=== PATIENT | female | born 1940 | race Caucasian/White ===

== ENCOUNTER 2016-12-02 22:04 | Inpatient (IN) | payer MEDICARE, MEDICAID ==
[~2016-12-02] VITALS: Ht 157.5 cm; Wt 82.0 kg
[~2016-12-02 22:04] MED LIST: ACET325T38 PO; AMIT25TA9 PO; ASPI-999 PO; BRIM5DRO12 OP; CARV3.122 PO; CEFD300C3 PO; CHOL10003 PO; CYAN500T2 PO; DCS100C PO; DULO30CA3 PO; FLDR.1T PO; FURO20TA4 PO; GLIP10TA13 PO; GLYB2.5T2 PO; HYDR-34 PO; HYDR-3714 PO; HYDR-3812 PO; HYDR-707 PO; HYDR10TA13 PO; HYDR20TA PO; HYDR20TA2 PO; INSU100V16 SC; LEVO25TA5 PO; LEVO750T39 PO; LEVO75TA6 PO; LVT.1T PO; MAGN-47 PO; MELO-195 PO; METF500T4 PO; METF500T8 PO; METR500T21 PO; MGS40T PO; MULT-974 PO; MULT1TAB12 PO; NCT21TD TD; OMEP-10 PO; PIOG45TA PO; POLY17PO23 PO; POTA10CA43 PO; SENN1TAB76 PO; TRAM-42 PO; TRAM50TA2 PO; TRAV0.004S OU; Vitamin B12 SL; ZINC113C8 TP
[2016-12-02 23:57] LABS: BILIRUBIN,URINE NEGATIVE (NEGATIVE); KETONES,URINE 1+ (NEGATIVE); LEUKOCYTE ESTERASE ,URINE 1+ (NEGATIVE); NITRITE,URINE NEGATIVE (NEGATIVE); PH,URINE 8 (5-9); PROTEIN,URINE 2+ (NEGATIVE); UROBILINOGEN,URINE NORMAL (NORMAL)
[2016-12-02] MEDS ORDERED: fentaNYL INJECTION 100 MCG/2 ML AMP IVP STA (23:59)
[2016-12-03] VITALS (16 sets, daily range): BP systolic 67–116; BP diastolic 37–71
[2016-12-03] LABS: SQUAMOUS EPITHELIAL CELL,UR RARE /HPF; WBC,URINE RARE /HPF
[2016-12-03 00:13] LABS: BASOPHILS % (AUTO) 0 % (0-10); EOSINOPHILS % (AUTO) 0 % (0-10); LYMPHOCYTES % (AUTO) 31 % (12-44); MEAN CORPUSCULAR HEMOGLOBIN 30 PG (25-34); MEAN CORPUSCULAR HGB CONC 34 G/DL (32-36); MEAN CORPUSCULAR VOLUME 87 FL (80-99); MEAN PLATELET VOLUME 11.3 FL (7.4-10.4); MONOCYTES # (AUTO) 0.6 X 10^3 (0.0-1.0); MONOCYTES % (AUTO) 7 % (0-12); NEUTROPHILS % (AUTO) 62 % (42-75); PLATELET COUNT 189 10^3/uL (130-400); RED BLOOD COUNT 5.19 10^6/uL (4.35-5.85); RED CELL DISTRIBUTION WIDTH 14.8 % (10.0-14.5); WHITE BLOOD COUNT 9.8 10^3/uL (4.3-11.0)
--- NOTE | 2016-12-03 00:16 | ED Fall/Injury ---
General Chief Complaint: Hip/Pelvic Problems Stated Complaint: FALL Nursing Triage Note: PT FELL AT [facility]. DENIES LOC. DENIES NECK PAIN. CCOLLAR IN PLACE PER EMS. HEMATOMA TO POSTERIOR HEAD. PT C/O LEFT HIP PAIN. Source: patient Exam Limitations: other ([place]) History of Present Illness Initial Comments 76 yo female patient presents to the ED with c/o falling at [facility]. Denies LOC, neck pain, chest pain, SOA. Does c/o left hip pain and hematoma of the posterior scalp. Location Injury Occurred: [facility] Occurred: just prior to arrival Injuries/Pain Location: head, back Context: lost balance Loss of Consciousness: no loss of consciousness Modifying Factors: Improves With Immobilization, Worse With Movement Allergies and Home Medications Allergies Coded Allergies: Penicillins (Unverified Allergy, Mild, 08/03/08) Home Medications Aspirin 81 Mg Tab.chew, 81 MG PO DAILY, (Reported) Docusate Sodium 100 Mg Capsule, 100 MG PO BID for 30 Days Prescribed by: CHIDI MALLORY on 12/05/16 1042 Duloxetine HCl 30 Mg Capsule.dr, 30 MG PO DAILY, (Reported) Fludrocortisone Acetate 0.1 Mg Tab, 0.1 MG PO DAILY, (Reported) Glipizide 5 Mg Tablet, 2.5 MG PO DAILY, (Reported) TAKES 1/2 OF A (5 MG) TABLET Hydrocodone/Acetaminophen 1 Each Tablet, 1 TAB PO Q6H PRN for PAIN, #30 Prescribed by: CHIDI MALLORY on 12/05/16 1042 Hydrocortisone 20 Mg Tablet, 20 MG PO DAILY, (Reported) Hydrocortisone 20 Mg Tablet, 10 MG PO DAILY@1500, (Reported) TAKES 1/2 OF A (20 MG) TABLET Mag Hydrox/Al Hydrox/Simeth 30 Ml Oral.susp, 30 ML PO TIDAC@0730,1100,1600, ( Reported) Metformin HCl 500 Mg Tab.er.24h, 1,000 MG PO BID, (Reported) TAKES 2 (500 MG) TABLETS Nystatin 60 Gm Powder, TP BID, (Reported) APPLIED TO ABDOMINAL FOLDS AND THIGH Zinc Oxide 113 Gm Cream..g., TP BID PRN for RASH, (Reported) Constitutional: No diaphoresis, No dizziness, No fever, No malaise Eyes: No Symptoms Reported Ears, Nose, Mouth, Throat: no symptoms reported Respiratory: no symptoms reported Cardiovascular: no symptoms reported Gastrointestinal: No abdominal pain, No nausea, No vomiting Genitourinary: no symptoms reported Musculoskeletal: No back pain, joint pain (left hip), No neck pain Skin: change in color (ecchymosis and swelling posterior scalp) Psychiatric/Neurological: Denies Headache, Denies Numbness, Denies Paresthesia , Pre-Existing 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), Denies Seizure, Denies Tingling, Denies Weakness All Other Systems Reviewed Negative Unless Noted: Yes (Negative excepted noted.) Past Egaijok-Uhhodt-Jvhlcv Hx Patient Social History Alcohol Use: Denies Use Recreational Drug Use: No Smoking Status: Unknown if Ever Smoked Recent Foreign Travel: No Contact w/Someone Who Travel: No Recent Infectious Disease Expo: No Recent Hopitalizations: Yes Immunizations Up To Date Tetanus Booster (TDap): Unknown Date of Pneumonia Vaccine: Jun 01, 2013 Date of Influenza Vaccine: Jul 08, 2016 Surgeries HX Surgeries: Yes (pituitary tumor removed, gastric surgery-pt unsure of name) Surgeries: Abdominal, Breast, Gallbladder, Orthopedic, Tracheostomy Respiratory Hx Respiratory Disorders: Yes (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) Cardiovascular Hx Cardiac Disorders: Yes Cardiac Disorders: High Cholesterol, Hypertension Neurological Hx Neurological Disorders: No Reproductive System Hx Reproductive Disorders: No HIV/AIDS: No Female Reproductive Disorders: Denies Genitourinary Hx Genitourinary Disorders: Yes Genitourinary Disorders: Bladder Infection, Renal Failure Gastrointestinal Hx Gastrointestinal Disorders: Yes (DYSPHAGIA) Gastrointestinal Disorders: Gastroesophageal Reflux, Gastrointestinal Bleed, Ulcer, Gall Bladder Disease Musculoskeletal Hx Musculoskeletal Disorders: Yes Musculoskeletal Disorders: Chronic Back Pain, Fractures Endocrine Hx Endocrine Disorders: Yes (ADRENOCORTICAL INSUFFICIENCY. ) Endocrine Disorders: Adrenal Disease, Hypothyroidsim, Pituitary Disease, Diabetes, Non-Insulin dep HEENT HX ENT Disorders: Yes (DYSPHAGIA) HEENT Disorders: Cataract, Glaucoma Loss of Vision: Left Hearing Impairment: Hard of Hearing Cancer Hx Cancer: Yes (right masectomy) Cancer: Breast Psychosocial Hx Psychiatric Problems: Yes Behavioral Health Disorders: Anxiety, Depression Integumentary HX Skin/Integumentary Disorder: No Blood Transfusions Hx Blood Disorders: No Adverse Reaction to a Blood Tr: No Reviewed Nursing Assessment Reviewed/Agree w Nursing PMH: Yes Family Medical History Significant Family History: No Pertinent Family Hx Family Medial History: Physical Exam Vital Signs Vital Sign - Last 12Hours 12/02/16 12/03/16 23:07 00:25 Temp 97.0 Pulse 82 Resp 17 B/P (MAP) 150/99 O2 Delivery Nasal Cannula O2 Flow Rate 2.00 Capillary Refill : Less Than 3 Seconds General Appearance: no apparent distress, other (chronically ill appearing female. ) HEENT: PERRL/EOMI (rt eye PERRL/EOM. 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 ), other ( hematoma posterior scalp.) Neck: non-tender, supple, normal inspection Cardiovascular: normal peripheral pulses, regular rate, rhythm, no edema, systolic murmur Respiratory: chest non-tender, lungs clear, normal breath sounds, no respiratory distress Gastrointestinal: normal bowel sounds, non tender, soft, No distended Back: normal inspection, vertebral tenderness Extremities: normal capillary refill, pelvis stable, other (left hip tenderness ) Neurologic/Psychiatric: manager grocery II-XII nml as tested, no motor/sensory deficits, alert, normal mood/affect, oriented x 3 Skin: normal color, warm/dry Lin Coma Score Best Eye Response: (4) Open Spontaneously Best Verbal Response: (5) Oriented Best Motor Response: (6) Obeys Commands Lin Total: 15 Progress/Results/Core Measures Results/Orders Lab Results Laboratory Tests Test 12/02/16 22:20 12/02/16 23:40 12/03/16 00:27 Range/Units White Blood Count 9.8 4.3-11.0 10^3/uL Red Blood Count 5.19 4.35-5.85 10^6/uL Hemoglobin 15.3 11.5-16.0 G/DL Hematocrit 45 35-52 % Mean Corpuscular Volume 87 80-99 FL Mean Corpuscular Hemoglobin 30 25-34 PG Mean Corpuscular Hemoglobin Concent 34 32-36 G/DL Red Cell Distribution Width 14.8 H 10.0-14.5 % Platelet Count 189 130-400 10^3/uL Mean Platelet Volume 11.3 H 7.4-10.4 FL Neutrophils (%) (Auto) 62 42-75 % Lymphocytes (%) (Auto) 31 12-44 % Monocytes (%) (Auto) 7 0-12 % Eosinophils (%) (Auto) 0 0-10 % Basophils (%) (Auto) 0 0-10 % Neutrophils # (Auto) 6.0 1.8-7.8 X 10^3 Lymphocytes # (Auto) 3.0 1.0-4.0 X 10^3 Monocytes # (Auto) 0.6 0.0-1.0 X 10^3 Eosinophils # (Auto) 0.0 0.0-0.3 10^3/uL Basophils # (Auto) 0.0 0.0-0.1 10^3/uL Prothrombin Time 12.4 12.2-14.7 SEC INR Comment 1.0 0.8-1.4 Activated Partial Thromboplast Time 34 24-35 SEC D-Dimer 3.47 H 0.00-0.49 UG/ML Sodium Level 141 135-145 MMOL/L Potassium Level 3.3 L 3.6-5.0 MMOL/L Chloride Level 102 98-107 MMOL/L Carbon Dioxide Level 30 21-32 MMOL/L Anion Gap 9 5-14 MMOL/L Blood Urea Nitrogen 11 7-18 MG/DL Creatinine 0.87 0.60-1.30 MG/DL Estimat Glomerular Filtration Rate > 60 BUN/Creatinine Ratio 13 Glucose Level 170 H 70-105 MG/DL Calcium Level 8.4 L 8.5-10.1 MG/DL Magnesium Level 2.5 H 1.8-2.4 MG/DL Total Bilirubin 0.6 0.1-1.0 MG/DL Aspartate Amino Transf (AST/SGOT) 30 5-34 U/L Alanine Aminotransferase (ALT/SGPT) 33 0-55 U/L Alkaline Phosphatase 124 40-136 U/L Total Creatine Kinase 30 29-168 U/L Creatine Kinase MB 1.7 <6.6 NG/ML Troponin I < 0.30 <0.30 NG/ML Total Protein 6.0 L 6.4-8.2 G/DL Albumin 3.6 3.2-4.5 G/DL Urine Color YELLOW Urine Clarity CLEAR Urine pH 8 5-9 Urine Specific [place] 1.020 1.016-1.022 Urine Protein 2+ H NEGATIVE Urine Glucose (UA) 1+ H NEGATIVE Urine Ketones 1+ H NEGATIVE Urine Nitrite NEGATIVE NEGATIVE Urine Bilirubin NEGATIVE NEGATIVE Urine Urobilinogen NORMAL NORMAL MG/DL Urine Leukocyte Esterase 1+ H NEGATIVE Urine RBC (Auto) 1+ H NEGATIVE Urine RBC RARE /HPF Urine WBC RARE /HPF Urine Squamous Epithelial Cells RARE /HPF Urine Crystals PRESENT H /LPF Urine Amorphous Sediment RARE MAMI PHOSPHATE H /LPF Urine Bacteria TRACE /HPF Urine Casts PRESENT /LPF Urine Hyaline Casts 2-5 H /LPF Urine Mucus MODERATE H /LPF Urine Culture Indicated YES Glucometer 155 H 70-110 MG/DL Micro Results Microbiology 12/02/16 Urine Culture - Final, Complete Proteus Mirabilis Escherichia Coli My Orders Orders - GENEVIEVE MATIAS PA Ct Head/Cervical Spine Wo (12/02/16 22:30) Hip, Left, 2 Views (12/02/16 22:30) Pelvis (12/02/16 22:30) Chest 1 View, Ap/Pa Only (12/02/16 23:06) Ua Culture If Indicated (12/02/16 23:53) Garibay Cath Insertion (12/02/16 23:53) Fentanyl Injection (Sublimaze Injection (12/02/16 23:59) Urine Culture (12/02/16 23:40) Cbc With Automated Diff (12/03/16 00:08) Comprehensive Metabolic Panel (12/03/16 00:08) Protime With Inr (12/03/16 00:08) Partial Thromboplastin Time (12/03/16 00:08) Saline Lock/Iv-Start (12/03/16 00:08) Ns Iv 1000 Ml (Sodium Chloride 0.9%) (12/03/16 00:30) Ekg Tracing (12/03/16 00:30) O2 (12/03/16 00:30) Monitor-Rhythm Ecg Trace Only (12/03/16 00:30) Creatine Kinase (12/03/16 00:30) Creatine Kinase Mb (12/03/16 00:30) Fibrin Degradation Products (12/03/16 00:30) Magnesium (12/03/16 00:30) Troponin I (12/03/16 00:30) Ns Iv 1000 Ml (Sodium Chloride 0.9%) (12/03/16 00:28) Ns Iv 1000 Ml (Sodium Chloride 0.9%) (12/03/16 01:14) Ct Chest/Abdomen/Pelvis W (12/03/16 01:19) Iohexol Injection (Omnipaque 350 Mg/Ml 1 (12/03/16 02:00) Ns (Ivpb) (Sodium Chloride 0.9% Ivpb Bag (12/03/16 02:00) Medications Given in ED Vital Signs/I&O Vital Sign - Last 12Hours 12/02/16 12/03/16 23:07 00:25 Temp 97.0 Pulse 82 Resp 17 B/P (MAP) 150/99 O2 Delivery Nasal Cannula O2 Flow Rate 2.00 Blood Pressure Mean: 116 Diagnostic Imaging Diagonstic Imaging: CT Plain Films/CT/US/NM/MRI: c-spine, head Comments CT head findings showed no acute hemorrhage or mass effect. Diffuse atrophy and chronic small vessel ischemic changes. Mottled lucency in the skull base which may reflect severe osteopenia. Appearance is unchanged from previous exam. CT spine shows T3 compression fracture with 50 percent loss of height centrally which is new when compared to the previous study. Diffuse osteopenia. Small left pleural effusion the visualized upper lung. Reviewed: Other ([employer] report reviewed) Diagonstic Imaging: Xray Plain Films/CT/US/NM/MRI: pelvis Comments No acute bony abnormality of the pelvis. Left hip shows an intertrochanteric fracture. Reviewed: Reviewed/Discussed (reviewed with Dr. Cooley) Diagonstic Imaging: Xray Plain Films/CT/US/NM/MRI: hip Comments Left intertrochanteric fracture Reviewed: Reviewed/Discussed (with Dr. Cooley) Diagonstic Imaging: Xray Plain Films/CT/US/NM/MRI: chest Comments No acute cardiopulmonary abnormality noted. Diagonstic Imaging: CT Plain Films/CT/US/NM/MRI: chest, abdomen, pelvis Comments CT chest shows a calcified ectatic thoracic aorta. No CT evidence of aortic injury. Small bilateral pleural effusions with bibasilar atelectasis. T3, T6, T7 compression fractures. Diffuse osteopenia. CT abdomen pelvis shows no acute CT evidence of solid organ injury. Mild intrahepatic ductal dilatation and common bile duct dilatation likely related to age and prior cholecystectomy. Finding in the posterior medial spleen probably benign. No pre-swelling fluid. Findings of the central uterus nonspecific. Probable left adnexal cyst with recommendations for follow-up pelvic ultrasound. Lizzette large ventral hernia containing fat small and large bowel loops. Reviewed: Other ([employer] report reviewed) Departure Communication Time/Spoke to Admitting Phy: 01:03 Communication Echo Moody accepts patient to Dr. Wagn's orthopaedic service for IV pain control , IVF, and further management. Requests consult of trauma surgery, cardiology, and medicine. Progress Notes 0011 Patient case discussed with Dr. Le. Requests Ortho to admit patient with trauma surgery consult. 0020 Dr. Kathleen staton. Will await return call. 0039 Kathleen staton to ED. Will await return call. 0103 patient case discussed with Debbie Moody APRN. She accepts patient to their orthopedic service for IV pain control, possible surgical intervention, and other evaluation. Requests consult of medicine, trauma surgery, and cardiology in the a.m. request CT scan abdomen, chest, pelvis prior to admission of stairs. Plan for admission, laboratory findings, and diagnostic study findings were discussed with the patient. I've also discussed we'll proceed with CT chest/pelvis/abdomen prior to transferring upstairs. Patient voices understanding. Patient was noted to have a drop in her blood pressure after being given fentanyl. Patient was given 2 L normal saline with good response. CT scan findings were discussed with the patient. Proceed with admission. Patient case as well as plan for admission discussed with Dr. Cooley, he agrees with the plan of care. Impression Impression: Primary Impression: Closed left hip fracture Qualified Codes: S72.002A - Fracture of unspecified part of neck of left femur , initial encounter for closed fracture Additional Impressions: Thoracic compression fracture Qualified Codes: S22.000A - Wedge compression fracture of unspecified thoracic vertebra, initial encounter for closed fracture Volume depletion Fall at home Qualified Codes: W19.XXXA - Unspecified fall, initial encounter; Y92.099 - Unspecified place in other non-institutional residence as the place of occurrence of the external cause Hypotension Qualified Codes: I95.9 - Hypotension, unspecified Disposition: ADMITTED INPATIENT Condition: Stable Decision to Admit Reason: Admit from ER (General) Decision to Admit/Date: Dec 03, 2016 Time/Decision to Admit Time: 01:03 Departure-Patient Inst. Referrals: CHIOMA CORREIA DO (PCP/Family) Primary Care Physician Scripts Docusate Sodium (Colace) 100 Mg Capsule 100 MG PO BID for 30 Days, CAP Prov: CHIDI MALLORY DO 12/05/16 Hydrocodone/Acetaminophen (Hydrocodon -Acetaminophen 5-325) 1 Each Tablet 1 TAB PO Q6H Y for PAIN, #30 Prov: CHIDI MALLORY DO 12/05/16 GENEVIEVE MATIAS Dec 03, 2016 00:16
[2016-12-03 00:17] LABS: PROTHROMBIN TIME PATIENT 12.4 SEC (12.2-14.7)
[2016-12-03 00:27] LABS: ANION GAP 9 MMOL/L (5-14); BILIRUBIN,TOTAL 0.6 MG/DL (0.1-1.0); BLOOD UREA NITROGEN 11 MG/DL (7-18); BUN/CREATININE RATIO 13; CALCIUM 8.4 MG/DL (8.5-10.1); CARBON DIOXIDE 30 MMOL/L (21-32); CHLORIDE 102 MMOL/L (98-107); CREATININE SERUM 0.87 MG/DL (0.60-1.30); GFR ESTIMATED > 60; GLUCOSE 170 MG/DL (70-105); POTASSIUM 3.3 MMOL/L (3.6-5.0); SODIUM 141 MMOL/L (135-145)
[2016-12-03 00:28] LABS: ALANINE AMINOTRANSFERASE 33 U/L (0-55); ALBUMIN 3.6 G/DL (3.2-4.5); ASPARTATE AMINO TRANSFERASE 30 U/L (5-34)
[2016-12-03] MEDS ORDERED: NS IV 1000 ML 1,000 ML ONE ×2 (00:28→04:08)
[2016-12-03] MEDS ORDERED: NS IV 1000 ML 1,000 ML IV ONE ×2 (00:30→01:14)
[2016-12-03 00:50] LABS: CREATINE KINASE 30 U/L (29-168); MAGNESIUM 2.5 MG/DL (1.8-2.4)
[2016-12-03 00:56] LABS: TROPONIN I < 0.30 NG/ML (<0.30)
[2016-12-03] MEDS ORDERED: NS 100 ML (IVPB) BAG IV ONE (02:00)
[2016-12-03] MEDS ORDERED: IOHEXOL 350 MG/ML 100 ML (OMNIPAQUE 350) VIAL IV ONE (02:00)
[2016-12-03] MEDS ORDERED: METF500T8 PO (02:11)
[2016-12-03] MEDS ORDERED: GLIP5TAB13 PO (02:11)
[2016-12-03] MEDS ORDERED: NYST60PO TP (02:11)
[2016-12-03] MEDS ORDERED: NS W/KCL 20 MEQ/L 1,000 ML IV ONE (03:22)
[2016-12-03] MEDS ORDERED: fentaNYL INJECTION 100 MCG/2 ML AMP IV PRN (04:00)
[2016-12-03] MEDS ORDERED: ONDANSETRON 4 MG/2 ML (SDV) Z0FRAN IV PRN ×2 (04:00→18:15)
[2016-12-03 04:54] LABS: BASOPHILS % (AUTO) 0 % (0-10); EOSINOPHILS # (AUTO) 0.1 10^3/uL (0.0-0.3); EOSINOPHILS % (AUTO) 1 % (0-10); LYMPHOCYTES # (AUTO) 3.8 X 10^3 (1.0-4.0); LYMPHOCYTES % (AUTO) 23 % (12-44); MEAN CORPUSCULAR HEMOGLOBIN 30 PG (25-34); MEAN CORPUSCULAR HGB CONC 34 G/DL (32-36); MEAN CORPUSCULAR VOLUME 89 FL (80-99); MEAN PLATELET VOLUME 11.4 FL (7.4-10.4); MONOCYTES # (AUTO) 1.2 X 10^3 (0.0-1.0); MONOCYTES % (AUTO) 7 % (0-12); NEUTROPHILS # (AUTO) 11.4 X 10^3 (1.8-7.8); NEUTROPHILS % (AUTO) 69 % (42-75); PLATELET COUNT 159 10^3/uL (130-400); RED BLOOD COUNT 4.43 10^6/uL (4.35-5.85); RED CELL DISTRIBUTION WIDTH 14.7 % (10.0-14.5); WHITE BLOOD COUNT 16.6 10^3/uL (4.3-11.0)
[2016-12-03 04:59] LABS: ABG BASE EXCESS -0.6 MMOL/L (-2.5-2.5); ABG HCO3 24 MMOL/L (23-27); ABG OXYGEN SATURATION 99 % (94-100); ABG PCO2 39 MMHG (35-45); ABG PO2 101 MMHG (79-93); ABG TCO2 24.7 MMOL/L (21.0-31.0); ALLENS TEST YES-POS; PATIENT TEMP 98.6
[2016-12-03 05:16] LABS: ANISOCYTOSIS SLIGHT; BAND NEUTROPHILS 2 %; BASOPHILS % (MANUAL) 0 %; EOSINOPHILS % (MANUAL) 0 %; LYMPHOCYTES % (MANUAL) 20 %; NEUTROPHILS % (MANUAL) 64 %; POIKILOCYTOSIS SLIGHT; REACTIVE LYMPHOCYTES 9 %
[2016-12-03 05:25] LABS: ALANINE AMINOTRANSFERASE 27 U/L (0-55); ALBUMIN 3.1 G/DL (3.2-4.5); ANION GAP 10 MMOL/L (5-14); ASPARTATE AMINO TRANSFERASE 24 U/L (5-34); BILIRUBIN,TOTAL 0.9 MG/DL (0.1-1.0); BLOOD UREA NITROGEN 12 MG/DL (7-18); BUN/CREATININE RATIO 14; CALCIUM 7.7 MG/DL (8.5-10.1); CARBON DIOXIDE 24 MMOL/L (21-32); CHLORIDE 107 MMOL/L (98-107); CREATININE SERUM 0.85 MG/DL (0.60-1.30); GFR ESTIMATED > 60; GLUCOSE 164 MG/DL (70-105); MAGNESIUM 2.1 MG/DL (1.8-2.4); POTASSIUM 3.3 MMOL/L (3.6-5.0); SODIUM 141 MMOL/L (135-145)
[2016-12-03 05:32] LABS: TROPONIN I < 0.30 NG/ML (<0.30)
[2016-12-03] MEDS: NS W/KCL 20 MEQ/L 1,000 ML IV SCH ×2 (05:40→11:46)
[2016-12-03] MEDS ORDERED: NS IV 1000 ML 1,000 ML IV SCH ×4 (05:45→22:30)
[2016-12-03 05:49] LABS: PHOSPHORUS 0.8 MG/DL (2.3-4.7)
[2016-12-03] MEDS: HYDROCORTISONE 100 MG/2 ML (Solu-CORTEF) VIAL IV SCH ×2 (06:00→16:38)
--- NOTE | 2016-12-03 06:43 | Pulmonary Consultation ---
History of Present Illness History of Present Illness Date of Consultation 12/03/16 06:38 Date of Admission History of Present Illness 76yo female presented to ED s/p fall at [facility] and found to have left hip fracture. Pt did hit head no LOC she has a posterior scalp hematoma. Allergies and Home Medications Allergies Coded Allergies: Penicillins (Unverified Allergy, Mild, 08/03/08) Home Medications Aspirin 81 Mg Tab.chew, 81 MG PO DAILY, #30 Ref 5 Prescribed by: AGNES SHARP on 05/20/16 1021 Duloxetine HCl 30 Mg Capsule.dr, 30 MG PO DAILY, (Reported) Fludrocortisone Acetate 0.1 Mg Tab, 0.1 MG PO DAILY, (Reported) Glipizide 5 Mg Tablet, 2.5 MG PO DAILY, #15 (Reported) Hydrocodone/Acetaminophen 1 Each Tablet, 1 TAB PO Q6H PRN for PAIN, (Reported) Hydrocortisone 10 Mg Tablet, 10 MG PO DAILY@1500, (Reported) Hydrocortisone 20 Mg Tablet, 20 MG PO DAILY, (Reported) Metformin HCl 500 Mg Tab.er.24h, #120 (Reported) Nystatin 60 Gm Powder, #30 (Reported) Zinc Oxide 113 Gm Cream..g., TP BID PRN for RASH, (Reported) Past [place]-Uyctsc-Qtanab Hx Patient Social History Alcohol Use: Denies Use Recreational Drug Use: No Smoking Status: Unknown if Ever Smoked Recent Foreign Travel: No Contact w/Someone Who Travel: No Recent Infectious Disease Expo: No Recent Hopitalizations: Yes Physical Abuse Screen: No Sexual Abuse: No Immunizations Up To Date Tetanus Booster (TDap): Unknown Date of Pneumonia Vaccine: Jun 01, 2013 Date of Influenza Vaccine: Jul 08, 2016 Surgeries HX Surgeries: Yes (pituitary tumor removed, gastric surgery-pt unsure of name) Surgeries: Abdominal, Breast, Gallbladder, Orthopedic, Tracheostomy Respiratory Hx Respiratory Disorders: Yes (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) Cardiovascular Hx Cardiac Disorders: Yes Cardiac Disorders: High Cholesterol, Hypertension Neurological Hx Neurological Disorders: No Reproductive System Hx Reproductive Disorders: No HIV/AIDS: No Female Reproductive Disorders: Denies Genitourinary Hx Genitourinary Disorders: Yes Genitourinary Disorders: Bladder Infection, Renal Failure Gastrointestinal Hx Gastrointestinal Disorders: Yes (DYSPHAGIA) Gastrointestinal Disorders: Gastroesophageal Reflux, Gastrointestinal Bleed, Ulcer, Gall Bladder Disease Musculoskeletal Hx Musculoskeletal Disorders: Yes Musculoskeletal Disorders: Chronic Back Pain, Fractures Endocrine Hx Endocrine Disorders: Yes (ADRENOCORTICAL INSUFFICIENCY. ) Endocrine Disorders: Adrenal Disease, Hypothyroidsim, Pituitary Disease, Diabetes, Non-Insulin dep HEENT HX ENT Disorders: Yes (DYSPHAGIA) HEENT Disorders: Cataract, Glaucoma Loss of Vision: Left Hearing Impairment: Hard of Hearing Cancer Hx Cancer: Yes (right masectomy) Cancer: Breast Psychosocial Hx Psychiatric Problems: Yes Behavioral Health Disorders: Anxiety, Depression Integumentary HX Skin/Integumentary Disorder: No Blood Transfusions Hx Blood Disorders: No Adverse Reaction to a Blood Tr: No Reviewed Nursing Assessment Reviewed/Agree w Nursing PMH: Yes Family Medical History Significant Family History: No Pertinent Family Hx Family Medial History: Exam Exam Vital Signs Date Time Temp Pulse Resp B/P (MAP) Pulse Ox O2 Delivery O2 Flow Rate FiO2 12/03/16 06:00 71 12 94/60 95 Nasal Cannula 2.00 12/03/16 05:27 2.00 12/03/16 05:00 67 19 86/41 98 Nasal Cannula 2.00 12/03/16 04:00 66 18 76/43 100 Nasal Cannula 2.00 12/03/16 04:00 98.6 12/03/16 03:30 97.8 71 20 83/53 100 Nasal Cannula 2.00 12/03/16 03:05 71 18 98 2.00 12/03/16 00:25 Nasal Cannula 2.00 12/02/16 23:07 97.0 82 17 150/99 I & O 12/03/16 07:00 Intake Total 2000 ml Output Total 350 ml Balance 1650 ml Capillary Refill: Less Than 3 Seconds Gastrointestinal: normal bowel sounds, non tender, soft, No distended Results Lab Laboratory Tests 12/02/16 22:20 12/03/16 04:45 Assessment/Plan Assessment/Plan -S/p fall with fractured left hip -Ortho is consulted -Mild Hypotension -Will give another liter bolus of NS -Left pleural effusion -Monitor -Chronic debility/dementia -Hypokalemia/hypophosphatemia -replace Clinical Quality Measures DVT/VTE Risk/Contraindication: Risk Factor Score Per Nursin RFS Level Per Nursing on Admit: 4+=Very High TOÑITO JOINER DO Dec 03, 2016 06:43
[2016-12-03] MEDS ORDERED: POTASSIUM PHOSPHATE INJ 30 MM in NS (IVPB) 250 ML IV NR (06:45)
[2016-12-03] MEDS ORDERED: CATHETER FLUSH 10 ML SYR IV PRN (07:00)
--- NOTE | 2016-12-03 07:07 | Consultation ---
History of Present Illness History of Present Illness Patient Consulted On(vel/time) 12/03/16 07:03 Reason for Visit: fall at skilled nursing leading to left intertrochanteric fracture of fem History of Present Illness reported fall at skilled nursing leading to pain over the left hip area. X-rays and CT scans show fracture of the left trochanter. Allergies and Home Medications Allergies Coded Allergies: Penicillins (Unverified Allergy, Mild, 08/03/08) Home Medications Aspirin 81 Mg Tab.chew, 81 MG PO DAILY, #30 Ref 5 Prescribed by: AGNES SHARP on 05/20/16 1021 Duloxetine HCl 30 Mg Capsule.dr, 30 MG PO DAILY, (Reported) Fludrocortisone Acetate 0.1 Mg Tab, 0.1 MG PO DAILY, (Reported) Glipizide 5 Mg Tablet, 2.5 MG PO DAILY, #15 (Reported) Hydrocodone/Acetaminophen 1 Each Tablet, 1 TAB PO Q6H PRN for PAIN, (Reported) Hydrocortisone 10 Mg Tablet, 10 MG PO DAILY@1500, (Reported) Hydrocortisone 20 Mg Tablet, 20 MG PO DAILY, (Reported) Metformin HCl 500 Mg Tab.er.24h, #120 (Reported) Nystatin 60 Gm Powder, #30 (Reported) Zinc Oxide 113 Gm Cream..g., TP BID PRN for RASH, (Reported) Past Encqlrw-Cucrxa-Yqrkrp Hx Patient Social History Alcohol Use: Denies Use Recreational Drug Use: No Smoking Status: Unknown if Ever Smoked Recent Foreign Travel: No Contact w/Someone Who Travel: No Recent Infectious Disease Expo: No Recent Hopitalizations: Yes Physical Abuse Screen: No Sexual Abuse: No Immunizations Up To Date Tetanus Booster (TDap): Unknown Date of Pneumonia Vaccine: Jun 01, 2013 Date of Influenza Vaccine: Jul 08, 2016 Surgeries HX Surgeries: Yes (pituitary tumor removed, gastric surgery-pt unsure of name) Surgeries: Abdominal, Breast, Gallbladder, Orthopedic, Tracheostomy Respiratory Hx Respiratory Disorders: Yes (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) Cardiovascular Hx Cardiac Disorders: Yes Cardiac Disorders: High Cholesterol, Hypertension Neurological Hx Neurological Disorders: No Reproductive System Hx Reproductive Disorders: No HIV/AIDS: No Female Reproductive Disorders: Denies Genitourinary Hx Genitourinary Disorders: Yes Genitourinary Disorders: Bladder Infection, Renal Failure Gastrointestinal Hx Gastrointestinal Disorders: Yes (DYSPHAGIA) Gastrointestinal Disorders: Gastroesophageal Reflux, Gastrointestinal Bleed, Ulcer, Gall Bladder Disease Musculoskeletal Hx Musculoskeletal Disorders: Yes Musculoskeletal Disorders: Chronic Back Pain, Fractures Endocrine Hx Endocrine Disorders: Yes (ADRENOCORTICAL INSUFFICIENCY. ) Endocrine Disorders: Adrenal Disease, Hypothyroidsim, Pituitary Disease, Diabetes, Non-Insulin dep HEENT HX ENT Disorders: Yes (DYSPHAGIA) HEENT Disorders: Cataract, Glaucoma Loss of Vision: Left Hearing Impairment: Hard of Hearing Cancer Hx Cancer: Yes (right masectomy) Cancer: Breast Psychosocial Hx Psychiatric Problems: Yes Behavioral Health Disorders: Anxiety, Depression Integumentary HX Skin/Integumentary Disorder: No Blood Transfusions Hx Blood Disorders: No Adverse Reaction to a Blood Tr: No Reviewed Nursing Assessment Reviewed/Agree w Nursing PMH: Yes Family Medical History Significant Family History: No Pertinent Family Hx Family Medial History: Physical Exam-General Problems Physical Exam Vital Signs Vital Sign - Last 12Hours 12/02/16 12/03/16 12/03/16 23:07 00:25 03:05 Temp 97.0 Pulse 82 Resp 17 B/P (MAP) 150/99 Pulse Ox 98 O2 Delivery Nasal Cannula O2 Flow Rate 2.00 Capillary Refill : Less Than 3 SecondsLess Than 3 Seconds General Appearance: no apparent distress HEENT: other Neck: normal inspection Respiratory: decreased breath sounds Cardiovascular: regular rate, rhythm Gastrointestinal: hernia Rectal: deferred Back: vertebral tenderness Skin: cool Comments tenderness over the left hip.large, long-standing ventral hernia with loops of small bowel within the hernia. Defect large and there is no evidence of incarceration. Assessment/Plan Assessment/Plan Admission Diagnosis/Plan left trochanteric fracture of femur. Multiple comorbidities including adrenal insufficiency. Hypotension, responsive to fluid replacement. Will be placed on intravenous steroids. CT shows bilateral pleural effusion, slightly larger on the left side.no injury to spleen. Formal radiologic interpretation pending. Await evaluation by the orthopedic surgeon, who she is admitted to Clinical Quality Measures DVT/VTE Risk/Contraindication: Risk Factor Score Per Nursin RFS Level Per Nursing on Admit: 4+=Very High JED YANG MD Dec 03, 2016 7:07 am
--- NOTE | 2016-12-03 08:08 | Diagnostic Imaging Report ---
INDICATION: Left hip pain AP and lateral views of the left hip are obtained. There is an acute comminuted intertrochanteric fracture of the left proximal femur, with varus angulation. There is underlying osteopenia. There is an old fracture deformity of the left inferior pubic ramus. IMPRESSION: Osteopenia. Acute intertrochanteric fracture of left proximal femur as above with varus angulation. Old fracture deformity of the left inferior pubic ramus. Dictated by: Dictated on workstation # [id number]
[2016-12-03] MEDS: FAMOTIDINE 20MG/2ML IV (PEPCID) IV SCH (08:14)
[2016-12-03] MEDS ORDERED: NS IV 500 ML 500 ML IV SCH (08:15)
--- NOTE | 2016-12-03 08:19 | Diagnostic Imaging Report ---
INDICATION: Pelvis at 11:11 PM. INDICATION: Fell There is a displaced comminuted intertrochanteric fracture of the left femur. The femoral head and neck fragment lies approximately 90 degrees to the distal femoral fragment.. No other fracture or acute bony abnormality is appreciated. The deformity of the inferior pubic ramus seen on the prior exam of 10/10/15 is again evident and no different. The postsurgical and post traumatic changes involving the right femur noted previously are also again identified and stable. There is severe degenerative disc and bony disease involving the visualized lower lumbar spine. The soft tissues are unremarkable. IMPRESSION: 1. There is a displaced comminuted intertrochanteric fracture of the left femur. 2. No other acute bony abnormality is appreciated. Dictated by: Dictated on workstation # [id number]
--- NOTE | 2016-12-03 08:26 | Diagnostic Imaging Report ---
INDICATION: Fall. COMPARISON: Followup CT chest from 12/03/2016 FINDINGS: Single frontal radiographic view of the chest was obtained and demonstrates normal cardiac silhouette and pulmonary vasculature. There is aortic atherosclerosis. Lungs show mild airspace disease in the left base, but are otherwise clear. Left-sided effusion seen on followup CT chest is not apparent on this exam. No large effusions or pneumothoraces are seen on either side. Bony structures show no gross acute abnormality. IMPRESSION: 1. Probable left basilar atelectasis. Otherwise, no acute cardiopulmonary process. Dictated by: Dictated on workstation # [id number]
--- NOTE | 2016-12-03 08:27 | Diagnostic Imaging Report ---
PROCEDURE: CT chest, abdomen, and pelvis with contrast. TECHNIQUE: Multiple contiguous axial images were obtained through the chest, abdomen, and pelvis after the administration of intravenous contrast. INDICATION: Fall. Left hip pain. History of breast cancer. ? Chest: Thoracic aorta is intact. There is no pericardial or mediastinal hemorrhage. There are tiny right and small left pleural effusions appearing low in density and showing no findings suggestive of loculation. There is severe degenerative change at the shoulder girdles and old-appearing deformities to the left scapula. There is some motion degradation and osteopenia limiting evaluation of the ribs. There are old-appearing healed deformities on the left. No definite acute rib fracture deformity could be discerned at this study. There is no pneumothorax. There are some bibasilar atelectatic changes and heterogeneous air trapping with features likely owing to underlying COPD. A few cysts in the apices noted. No thoracic lymphadenopathy. Having developed from previous study is T3 superior and inferior endplate compression fracture. The endplates appeared sclerotic and well defined. No obvious adjacent paravertebral hemorrhage. While having developed from the prior, the appearance of this injury is felt more suggestive of chronic fracture as opposed to new injury. Wedge deformities at the T6-T7 level are redemonstrated and showed no progressive stature loss. Interval kyphoplasty at the T12 and L1 compression fractures noted with no progressive stature loss when compared with thoracic spinal CT performed 10/10/2015. Abdomen/ pelvis: A very large nonobstructing ventral abdominal wall hernia present, this not significantly changed from study performed 12/23/2015. Post cholecystectomy and senescent biliary ductal ectasia stable. No acute splenic abnormality. Hyperenhancing nodule medially in the spleen not obviously changed from prior nonenhanced study, probably hemangioma. The pancreas nonacute. The adrenals unremarkable. The kidneys well perfused and unobstructed. There is a small amount of pelvic free fluid showing no complexity, low in density in the left hemipelvis. Low-density nodule within the uterine fundus may be endometrial or myometrial. It is 19 mm in diameter, and as endometrial pathology could not be excluded, nonemergent pelvic ultrasound recommended given the patient's age. There is a left adnexal cyst measuring 3.6 cm. L5 spondylolysis defects and anterolisthesis unchanged. There are comminuted fractures of the left proximal femur, intertrochanteric without dislocation. There is fracture of the inferior pubic ramus. An expected superior pubic ramus fracture cannot be demonstrated. IMPRESSION: Chest: Small simple-appearing pleural effusions. No acute rib deformity. No evidence for pneumothorax or lung contusion. Stable midthoracic compression deformities. Having developed from prior CT T-spine, a likely nonacute T3 wedge compression fracture is present; if, however, this correlates with the level of pain and further workup indicated, consider MRI versus bone scan. Interval treatment of thoracolumbar junction fracture showing no progressive stature loss. Abdomen/ pelvis: 1. Small pelvic free fluid without findings suggestive of hemoperitoneum. Large nonobstructing ventral hernia stable. Comminuted fractures of the intertrochanteric left hip without dislocation. Deformity to the inferior left pubic ramus with no visualized superior pubic ramus fracture. No symphyseal or SI joint diastasis. 2. A left adnexal cyst. Myometrial versus endometrial mass, fundal uterus. Nonemergent pelvic ultrasound recommended. Exam compared with abdominal/ pelvic CT 12/23/2015; that was a noncontrast-enhanced exam. Most recent chest CT is performed 12/12/2006. Dictated by: Dictated on workstation # [id number]
--- NOTE | 2016-12-03 08:31 | Diagnostic Imaging Report ---
PROCEDURE: CT head and CT cervical spine without contrast. TECHNIQUE: Multiple contiguous axial images were obtained through the brain and cervical spine without the use of intravenous contrast. Sagittal and coronal reformations through the cervical spine were then performed. INDICATION: Fall with hip fracture, head and neck pain. COMPARISON: 10/10/2015 CT HEAD: Focal scalp swelling on the left posteriorly noted. The underlying calvarium revealed no fracture deformity. A densely calcified extra-axial nodule right posterior parietal convexity showed no substantial change from head CT performed in 2009 and is most consistent with a meningioma. No perilesional edema. No resultant mass effect, shift or herniation. Chronic cerebral cortical atrophy and periventricular white matter small vessel sequelae are stable. There is patchy heterogeneity of bony density at the skull base suggestive of extensive osteoporosis. This also is not substantially changed. There are no abnormal extra-axial fluid collections. There are no findings to suggest intracerebral involvement by hemorrhage. Chronic changes to the left globe are redemonstrated. CT CERVICAL SPINE: Cervical body heights are maintained. The alignment is anatomic and no substantial stenosis of the cervical spinal canal. Having developed from the prior is an acuity indeterminate. T3 superior and inferior endplate compression fracture resulting in about 60% stature loss. There was no adjacent hemorrhage or obvious edema of the adjacent soft tissues. No other change from prior. The spinal canal throughout the cervical spine remains widely patent. The cervical carotid vascular calcifications on an atherosclerotic basis. IMPRESSION: CT HEAD: Long-term stability densely calcified extra-axial mass compatible with meningioma. There is soft tissue swelling in the left scalp but no other acute or posttraumatic sequelae. In particular, no intracerebral hemorrhage. CT CERVICAL SPINE: Interval development of T3 superior and inferior endplate compression fracture since study of October 2015 however no adjacent edema or hemorrhage is apparent and this may be nonacute. If this however correlates with the region of pain and further workup is indicated MRI versus bone scan may provide further utility to more satisfactorily characterize its level of acuity. No evidence for cervical spinal fracture or malalignment. Dictated by: Dictated on workstation # [id number]
[2016-12-03] MEDS ORDERED: DULO30CA48 PO (09:58)
[2016-12-03] MEDS ORDERED: MAG30ORA2 PO (09:58)
[2016-12-03] MEDS ORDERED: ASPI-999 PO (09:58)
[2016-12-03] MEDS ORDERED: HYDR20TA2 PO (09:58)
--- NOTE | 2016-12-03 11:05 | Consultation-Hospitalist ---
HPI History of Present Illness: HPI/Chief Complaint CC: Left hip fracture with hypotension Chart Review: BP is now 95/64, Hgb 13.3 after 4500 fluids, WBC 16.6, ABG 7.40/39 /101, D-dimer 3.47, Lactic acid 3.17, Creat 0.85, UA is normal limits, CT active , No significant abnormality meteorologist in charge: Pt is very hypotensive 50/40. Pt hit 90s around 0600. Pt fell at [facility]. Dr. Leon will be on board. Pt had ECHO ordered by Dr. Leon but pt refused it. Pt had normal ECHO in May. Dr. Wheeler has not cleared pt for surgery. Pt is DNR. Maybe wait until pt has had stable BP. SW Review: Dr. Wang is on today. Patient Interview: Pt is unresponsive to Dr. Durbin questions. Physical exam was stable. Scribed by Kulwant Leal under the direct supervision of Dr. Mallory. Source: patient Date Seen 12/03/16 Attending Physician Leona Paris DO PCP Leona Paris DO Referring Physician Date of Admission Dec 03, 2016 at 02:26 Home Medications & Allergies Home Medications Reviewed patient Home Medication Reconciliation Form Allergies Allergies Coded Allergies Penicillins (Unverified Allergy, Mild, 08/03/08) Past [id number]-[id number] Hx Patient Social History Marrital Status: single Employed/Student: retired Alcohol Use: Denies Use Recreational Drug Use: No Smoking Status: Unknown if Ever Smoked Physical Abuse Screen: No Sexual Abuse: No Recent Foreign Travel: No Contact w/other who traveled: No Recent Hopitalizations: Yes Recent Infectious Disease Expo: No Immunizations Up To Date Tetanus Booster (TDap): Unknown Date of Pneumonia Vaccine: Jun 01, 2013 Date of Influenza Vaccine: Jul 08, 2016 Surgeries HX Surgeries: Yes (pituitary tumor removed, gastric surgery-pt unsure of name) Surgeries: Abdominal, Breast, Gallbladder, Orthopedic, Tracheostomy Respiratory Hx Respiratory Disorders: Yes (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) Cardiovascular Hx Cardiovascular Disorders: Yes Cardiac Disorders: High Cholesterol, Hypertension Neurological Hx Neurological Disorders: Yes Neurological Disorders: Dementia Reproductive System Hx Reproductive Disorders: No HIV/AIDS: No Female Reproductive Disorders: Denies Genitourinary Hx Genitourinary Disorders: Yes Genitourinary Disorders: Bladder Infection, Renal Failure Gastrointestinal Hx Gastrointestinal Disorders: Yes (DYSPHAGIA) Gastrointestinal Disorders: Gastroesophageal Reflux, Gastrointestinal Bleed, Ulcer, Gall Bladder Disease Musculoskeletal Hx Musculoskeletal Disorders: Yes Musculoskeletal Disorders: Chronic Back Pain, Fractures Endocrine Hx Endocrine Disorders: Yes (ADRENOCORTICAL INSUFFICIENCY. ) Endocrine Disorders: Adrenal Disease, Hypothyroidsim, Pituitary Disease, Diabetes, Non-Insulin dep HEENT HX ENT Disorders: Yes (DYSPHAGIA) HEENT Disorders: Cataract, Glaucoma Loss of Vision: Left Hearing Impairment: Hard of Hearing Cancer Hx Cancer: Yes (right masectomy) Cancer: Breast Psychosocial Hx Psychiatric Problems: Yes Behavioral Health Disorders: Anxiety, Depression Integumentary HX Skin/Integumentary Disorder: No Blood Transfusions Hx Blood Disorders: No Adverse Reaction to a Blood Tr: No Reviewed Nursing Assessment Reviewed/Agree w Nursing PMH: Yes Family Medical History Significant Family History: No Pertinent Family Hx Family Hx: Review of Systems ROS-Unable to Obtain: unable to ascertain due to dementia Constitutional: see HPI Physical Exam Physical Exam Vital Signs Vital Sign - Last 12Hours 12/02/16 12/03/16 12/03/16 23:07 00:25 03:05 Temp 97.0 Pulse 82 Resp 17 B/P (MAP) 150/99 Pulse Ox 98 O2 Delivery Nasal Cannula O2 Flow Rate 2.00 Capillary Refill : Greater Than 3 SecondsLess Than 3 Seconds General Appearance: No Apparent Distress, WD/WN, Chronically ill, Obese Eyes: Bilateral Eye Normal Inspection, Bilateral Eye PERRL Neck: Non Tender, Supple Respiratory: Chest Non Tender, Lungs Clear, No Accessory Muscle Use, No Respiratory Distress, Decreased Breath Sounds Cardiovascular: Regular Rate, Rhythm, No Edema, No Gallop, No JVD, No Murmur, Normal Peripheral Pulses Gastrointestinal: Normal Bowel Sounds, No Organomegaly, No Pulsatile Mass, Non Tender, Soft Back: Normal Inspection, No CVA Tenderness, No Vertebral Tenderness Extremity: Normal Capillary Refill, Normal Inspection, Normal Range of Motion, Non Tender, No Calf Tenderness, No Pedal Edema Neurologic/Psychiatric: Alert, No Motor/Sensory Deficits, Depressed Affect, Other (patient is sleeping) Skin: Normal Color, Warm/Dry Lymphatic: No Adenopathy Results Results/Procedures Lab Laboratory Tests 12/02/16 22:20 12/03/16 04:45 Assessment/Plan Admission Diagnosis Assessment: Fall with hip fracture and subsequent hypotension requiring 4500 mL of aggressive IV fluids to maintain blood pressure 100 Severe dementia Multiple falls in the past Past Medical History per [facility] prior records: 1. Adrenal Insufficiency sp pituitary tumor resection- on chronic steroids 2. History of severe GI bleed with gastric ulcers s/p rozina-en-y by 11- 10, complicated by ARDS, prolonged ventilation with tracheostomy and acute renal failure requiring dialysis. Resolved 3. OA 4. DM 5. Left Eye blindness right eye glaucoma 6. HTN 7. HLP 8. Depression/anxiety 9. History of A-Flutter- inability to take anticoagulant due to bleed and falls 10. Steroid induced osteoporosis 11. Multiple falls resulting in hip fractures and multiple compression fractures 12. Tobaccoism Past Surgical History 1. Cholecystectomy 2. Ventral hernia 3. Hx mastectomy 4. Rt. Im Nail by Inna 2-14 5. Rozina-en-y procedure Assessment and Plan Plan: Due to the significant hypotension even with the addition of the hydrocortisone due to chronic steroid use of hydrocortisone and Florinef due to pituitary tumor resection and subsequent lifetime replacement required I would recommend waiting until tomorrow morning for repair of the fracture to have any type of stability of recovery the due to severe dementia and likelihood of delirium and further complications she will be required to be monitored closely will be optimized the best possible by tomorrow morning to undergo the procedure. Dr. Wang was updated regarding the plan. Clinical Quality Measures DVT/VTE Risk/Contraindication: Risk Factor Score Per Nursin RFS Level Per Nursing on Admit: 4+=Very High CHIDI MALLORY DO Dec 03, 2016 11:05
--- NOTE | 2016-12-03 11:27 | Diagnostic Imaging Report ---
Portable erect AP chest at 1108 hours. INDICATION: PICC line insertion. FINDINGS: In the interval since the prior exam of 12/02/16, right-sided PICC line has been inserted. The tip of line overlies the cavoatrial junction. There is no sign of pneumothorax on the right. There is shallow inspiration on this study when compared to the prior exam. Allowing for this technical factor, there does not seem to have been any significant change. IMPRESSION: 1. There has been interval insertion of a right-sided PICC line without apparent complication. The tip of line overlies the cavoatrial junction. 2. The overall appearance of the chest has not changed significantly otherwise. A followup study would be recommended for continued evaluation. Dictated by: Dictated on workstation # [id number]
[2016-12-03] MEDS ORDERED: RX-HYDROCODONE/APAP 5/325 MG #4 TAB PK PO PRN (11:30)
[2016-12-03] MEDS: FLUDROCORTISONE 0.1 MG (FLORINEF) TAB PO SCH (12:00)
[2016-12-03] MEDS: glipiZIDE 5 MG (GLUCOTROL) TAB PO SCH (12:00)
--- NOTE | 2016-12-03 12:01 | Consultation-Cardiology ---
HPI-Cardiology Cardiology Consultation: Date of Consultation 12/03/16 Date of Admission Attending Physician Leona Paris DO Admitting Physician Leona Paris DO Consulting Physician Ramona RAMIREZ MD HPI: Chief Complaint: hypotension This is [facility] 76 [facility] of [facility]. No known cardiac history. She has history of hypertension, hyperlipidemia and diabetes. She presented with a fall and hip fracture. Preoperative evaluation is requested by the primary team. She was hypotensive when she presented. It responded very well with fluids. she is not a good historian. During my interview, she kept on saying that she wants to sleep. She did not complain of any shortness of breath or chest pain. History is limited. Review of Systems-Cardiology Review of Systems Constitutional: No As described under HPI, No no symptoms reported, No chills, No fever, No lightheadedness, No malaise, No tiredness, No weight loss, No weight gain, No other Eyes: No As described under HPI, No no symptoms reported, No blindness, No blurred vision, No contact lenses, No drainage, No decreased acuity, No foreign body sensation, No glasses, No inflammation, No pain, No photophobia, No previous injury, No shadows, No tunnel vision, No other, No vision change Ears/Nose/Throat: No As described under HPI, No no symptoms reported, No chronic hearing loss, No epistaxis, No ear discharge, No ear pain, No loose teeth, No mouth pain, No mouth swelling, No nasal drainage, No nose pain, No recent hearing loss, No throat pain, No throat swelling, No ulcerations, No other Respiratory: No no symptoms reported, No As described under HPI, No cough, No orthopnea, No shortness of breath, No SOB with excertion, No SOB at rest, No stridor, No wheezing, No other Cardiovascular: No no symptoms reported, No As described under HPI, No chest pain, No edema, No irregular heart rate, No lightheadedness, No palpitations, No syncope, No other Gastrointestinal: No no symptoms reported, No As described under HPI, No abdomen distended, No abdominal pain, No blood streaked bowels, No constipation , No diarrhea, No difficulty swallowing, No nausea, No poor appetite, No poor fluid intake, No rectal bleeding, No vomiting, No other, No nausea/vomiting/ diarrhea, No stool coloration changes Genitourinary: No no symptoms reported, No As described under HPI, No burning, No dysuria, No discharge, No frequency, No flank pain, No hematuria, No incontinence, No pain, No urgency, No other, No urine frequency changes, No urine coloration changes Musculoskeletal: joint pain Skin: No no symptoms reported, No As described under HPI, No change in color, No change in hair/nails, No dryness, No lesions, No lumps, No rash, No other, No skin related problems, No ulcerations, No rash on exposed areas, No ulcerations on exposed areas Psychiatric/Neurological: No As described under HPI, No anxiety, No depression , No emotional problems, No focal weakness, No headache, No no symptoms reported , No numbness, No other, No pre-existing deficit, No seizure, No syncope, No tingling, No tremors, No weakness All Other Systems Reviewed Negative Unless Noted: Yes (Negative excepted noted.) AZM-[id number]-Pbmpib Hx Patient Social History Marrital Status: single Employed/Student: retired Alcohol Use: Denies Use Recreational Drug Use: No Smoking Status: Unknown if Ever Smoked Recent Foreign Travel: No Recent Infectious Disease Expo: No Physical Abuse Screen: No Sexual Abuse: No Immunizations Up To Date Tetanus Booster (TDap): Unknown Date of Pneumonia Vaccine: Jun 01, 2013 Date of Influenza Vaccine: Jul 08, 2016 Past Medical History PMH As described under Assessment. Family Medical History Family Medical History: Unknown Family History: Allergies and Home Medications Allergies Coded Allergies: Penicillins (Unverified Allergy, Mild, 08/03/08) Home Medications Aspirin 81 Mg Tab.chew, 81 MG PO DAILY, (Reported) Duloxetine HCl 30 Mg Capsule.dr, 30 MG PO DAILY, (Reported) Fludrocortisone Acetate 0.1 Mg Tab, 0.1 MG PO DAILY, (Reported) Glipizide 5 Mg Tablet, 2.5 MG PO DAILY, (Reported) TAKES 1/2 OF A (5 MG) TABLET Hydrocodone/Acetaminophen 1 Each Tablet, 1 TAB PO Q6H PRN for PAIN, (Reported) Hydrocortisone 20 Mg Tablet, 20 MG PO DAILY, (Reported) Hydrocortisone 20 Mg Tablet, 10 MG PO DAILY@1500, (Reported) TAKES 1/2 OF A (20 MG) TABLET Mag Hydrox/Al Hydrox/Simeth 30 Ml Oral.susp, 30 ML PO TIDAC@0730,1100,1600, ( Reported) Metformin HCl 500 Mg Tab.er.24h, 1,000 MG PO BID, (Reported) TAKES 2 (500 MG) TABLETS Nystatin 60 Gm Powder, TP BID, (Reported) APPLIED TO ABDOMINAL FOLDS AND THIGH Zinc Oxide 113 Gm Cream..g., TP BID PRN for RASH, (Reported) Physical Exam-Cardiology Physical Exam Vital Signs/I&O Vital Sign - Last 12Hours 12/03/16 12/03/16 12/03/16 12/03/16 00:25 03:05 03:30 04:00 Temp 97.8 98.6 Pulse 71 71 Resp 18 20 B/P (MAP) 83/53 Pulse Ox 98 100 O2 Delivery Nasal Cannula Nasal Cannula O2 Flow Rate 2.00 2.00 2.00 12/03/16 12/03/16 12/03/16 12/03/16 04:00 05:00 05:27 06:00 Pulse 66 67 71 Resp 18 19 12 B/P (MAP) 76/43 86/41 94/60 Pulse Ox 100 98 95 O2 Delivery Nasal Cannula Nasal Cannula Nasal Cannula O2 Flow Rate 2.00 2.00 2.00 2.00 12/03/16 12/03/16 12/03/16 12/03/16 07:00 07:00 08:00 08:00 Temp 97.0 Pulse 71 70 72 Resp 7 16 B/P (MAP) 105/64 Pulse Ox 100 98 97 O2 Delivery Nasal Cannula Nasal Cannula O2 Flow Rate 2.00 2.00 2.00 12/03/16 12/03/16 12/03/16 09:00 10:00 11:00 Pulse 75 70 73 Resp 25 13 7 B/P (MAP) 105/71 109/62 116/71 Pulse Ox 99 100 100 O2 Delivery Nasal Cannula Nasal Cannula Nasal Cannula O2 Flow Rate 2.00 2.00 2.00 Capillary Refill : Greater Than 3 SecondsLess Than 3 Seconds Constitutional: No appears stated age, No AAO x 3, No apparent distress, No PERRL, No well-developed, No well-nourished, No other HEENT: No PERRL, No normal ENT inspection, No TMs normal, No pharynx normal, No scleral icterus (R), No scleral icterus (L), No pale conjunctivae (R), No pale conjunctivae (L), No photophobia, No TM abnormal (R), No TM abnormal (L), No pharyngeal erythema, No tonsillar exudate, No other, No discharge, No EOMI, No hearing is well preserved, No hard of hearing, No oral hygience is good, No ulceration, No xanthelasmas are seen Neck: No non-tender, No full range of motion, No supple, No normal inspection, No carotid bruit, No limited range of motion, No lymphadenopathy (R), No lymphadenopathy (L), No tender lateral, No tender midline, No thyromegaly, No other, No carotid pulses are 2 + bilaterally, No with good upstrokes Respiratory: No accessory muscle use, No respiratory distress, No chest tender , No chest expansion is symmetric, No chest is bilaterally symmetric, No lungs clear to percussion, No lungs clear to auscultation, No crackles, No rhonchi, No rales, No stridor, No wheezing, No pleural rub, No other Cardiovascular: No regular rate-rhythm, No irregularly irregular, No extra beats, No parasternal heave is noted, No JVD, No edema, No bradycardia, No tachycardia, No point of maximal impulse, No cardiac thrills are palpable, No S1 and S2, No gallop/S3, No gallop/S4, No diastolic murmur, No systolic murmur, No friction rub, No click, No other Gastrointestinal: No tender, No soft, No round, No distended, No pulsatile mass , No organomegaly, No guarding, No rebound, No tenderness, No hernia, No mass, No audible bowel sounds, No abnormal bowel sounds, No abdominal bruits, No spleenomegaly, No other Rectal: deferred Extremities: normal range of motion, non-tender, normal inspection, No pedal edema, No calf tenderness, No normal capillary refill, No pelvis stable, No calf tenderness, No inflammation, No pedal edema, No slow capillary refill, No swelling, No other, No abrasion, No clubbing, No cyanosis, No ecchymosis, No laceration, No no lower extremity edema bilateral, No significant edema, tenderness, No wound Neurologic/Psychiatric: No agricultural produce washer II-XII nml as tested, No no motor/sensory deficits, No alert, No normal mood/affect, No oriented x 3, No abnormal cerebellar tests, No abnormal agricultural produce washer II-XII, No abnormal gait, No aphasia, No EOM palsy, No facial droop, No motor weakness, No sensory deficit, No depressed affect, No disoriented x 3, No other, No grossly intact, No power is 5/5 both on sides Data Review Labs Laboratory Tests 12/02/16 22:20: White Blood Count 9.8, Red Blood Count 5.19, Hemoglobin 15.3, Hematocrit 45, Mean Corpuscular Volume 87, Mean Corpuscular Hemoglobin 30, Mean Corpuscular Hemoglobin Concent 34, Red Cell Distribution Width 14.8H, Platelet Count 189, Mean Platelet Volume 11.3H, Neutrophils (%) (Auto) 62, Lymphocytes (%) (Auto) 31 , Monocytes (%) (Auto) 7, Eosinophils (%) (Auto) 0, Basophils (%) (Auto) 0, Neutrophils # (Auto) 6.0, Lymphocytes # (Auto) 3.0, Monocytes # (Auto) 0.6, Eosinophils # (Auto) 0.0, Basophils # (Auto) 0.0, Prothrombin Time 12.4, INR Comment 1.0, Activated Partial Thromboplast Time 34, D-Dimer 3.47H, Sodium Level 141, Potassium Level 3.3L, Chloride Level 102, Carbon Dioxide Level 30, Anion Gap 9, Blood Urea Nitrogen 11, Creatinine 0.87, Estimat Glomerular Filtration Rate > 60, BUN/Creatinine Ratio 13, Glucose Level 170H, Calcium Level 8.4L, Magnesium Level 2.5H, Total Bilirubin 0.6, Aspartate Amino Transf ( AST/SGOT) 30, Alanine Aminotransferase (ALT/SGPT) 33, Alkaline Phosphatase 124, Total Creatine Kinase 30, Creatine Kinase MB 1.7, Troponin I < 0.30, Total Protein 6.0L, Albumin 3.6 12/02/16 23:40: Urine Color YELLOW, Urine Clarity CLEAR, Urine pH 8, Urine Specific [place] 1.020, Urine Protein 2+H, Urine Glucose (UA) 1+H, Urine Ketones 1+H, Urine Nitrite NEGATIVE, Urine Bilirubin NEGATIVE, Urine Urobilinogen NORMAL, Urine Leukocyte Esterase 1+H, Urine RBC (Auto) 1+H, Urine RBC RARE, Urine WBC RARE, Urine Squamous Epithelial Cells RARE, Urine Crystals PRESENTH, Urine Amorphous Sediment RARE MAMI PHOSPHATEH, Urine Bacteria TRACE, Urine Casts PRESENT, Urine Hyaline Casts 2-5H, Urine Mucus MODERATEH, Urine Culture Indicated YES 12/03/16 00:27: Glucometer 155H 12/03/16 04:45: White Blood Count 16.6H, Red Blood Count 4.43, Hemoglobin 13.3, Hematocrit 39, Mean Corpuscular Volume 89, Mean Corpuscular Hemoglobin 30, Mean Corpuscular Hemoglobin Concent 34, Red Cell Distribution Width 14.7H, Platelet Count 159, Mean Platelet Volume 11.4H, Neutrophils (%) (Auto) 69, Lymphocytes (%) (Auto) 23 , Monocytes (%) (Auto) 7, Eosinophils (%) (Auto) 1, Basophils (%) (Auto) 0, Neutrophils # (Auto) 11.4H, Lymphocytes # (Auto) 3.8, Monocytes # (Auto) 1.2H, Eosinophils # (Auto) 0.1, Basophils # (Auto) 0.0, Sodium Level 141, Potassium Level 3.3L, Chloride Level 107, Carbon Dioxide Level 24, Anion Gap 10, Blood Urea Nitrogen 12, Creatinine 0.85, Estimat Glomerular Filtration Rate > 60, BUN/ Creatinine Ratio 14, Glucose Level 164H, Calcium Level 7.7L, Magnesium Level 2.1 , Total Bilirubin 0.9, Aspartate Amino Transf (AST/SGOT) 24, Alanine Aminotransferase (ALT/SGPT) 27, Alkaline Phosphatase 105, Troponin I < 0.30, Total Protein 5.0L, Albumin 3.1L, Neutrophils % (Manual) 64, Lymphocytes % ( Manual) 20, Monocytes % (Manual) 5, Eosinophils % (Manual) 0, Basophils % ( Manual) 0, Band Neutrophils 2, Reactive Lymphocytes 9, Poikilocytosis SLIGHT, Anisocytosis SLIGHT, Phosphorus Level 0.8*L, B-Type Natriuretic Peptide 66.1 12/03/16 04:50: Blood Gas Puncture Site LRAD, Blood Gas Patient Temperature 98.6, Arterial Blood pH 7.40, Arterial Blood Partial Pressure CO2 39, Arterial Blood Partial Pressure O2 101H, Arterial Blood HCO3 24, Arterial Blood Total CO2 24.7, Arterial Blood Oxygen Saturation 99, Arterial Blood Base Excess -0.6, Isaias Test YES-POS, Blood Gas Ventilator Setting NO, Blood Gas Inspired Oxygen UNK 12/03/16 07:30: Lactic Acid Level 3.17*H, Phosphorus Level < 0.7*L 12/03/16 09:38: Lactic Acid Level 2.24*H 12/03/16 11:28: Glucometer 212H ECG Impression ECG Initial ECG Rhythm: Normal Sinus Comment right bundle-branch block A/P-Cardiology Assessment/Admission Diagnosis fall, hip fracture. Preoperative cardiovascular risk assessment. Hypotension. Plan history was limited, however she does not complain of any shortness of breath or chest pain. Patient does not have any significant past cardiac history. Echocardiogram done in May 2016 showed normal EF with no significant valvular heart disease. The patient does have history of diabetes. Episode of hypotension on admission was likely secondary to dehydration and responded very well to IV fluids. she presented with fall with hip fracture and the plan is to undergo hip replacement. Based on the history of diabetes and no other significant past cardiac history, the patient will be considered at moderate risk for major adverse perioperative cardiac events undergoing a moderate risk noncardiac surgery. There is no cardiac contraindication to the above-mentioned procedure. Cardiology to sign off. Please let me know if any further assistance is required. Thank you for your consultation. Clinical Quality Measures DVT/VTE Risk/Contraindication: Risk Factor Score Per Nursin RFS Level Per Nursing on Admit: 4+=Very High Ramona RAMIREZ MD Dec 03, 2016 12:01 pm
[2016-12-03] MEDS ORDERED: LACTATED RINGERS 1,000 ML IV PRN (13:13)
[2016-12-03] MEDS: ANTACID SUSP 30 ML UDC (MYLANTA) PO SCH (16:00)
[2016-12-03] MEDS ORDERED: LACTATED RINGERS 1,000 ML IV ONE (16:02)
[2016-12-03] MEDS ORDERED: KETAMINE HCL 100 MG/ML 5 ML VIAL ONE (16:27)
[2016-12-03] MEDS: NS IV 1000 ML 1,000 ML IV SCH ×2 (16:40→18:42)
--- NOTE | 2016-12-03 16:40 | Consultation ---
History of Present Illness History of Present Illness Patient Consulted On(vel/time) 12/03/16 16:36 Date of Admission Reason for Visit: fall at longterm leading to left intertrochanteric fracture of fem Allergies and Home Medications Allergies Coded Allergies: Penicillins (Unverified Allergy, Mild, 08/03/08) Home Medications Aspirin 81 Mg Tab.chew, 81 MG PO DAILY, (Reported) Duloxetine HCl 30 Mg Capsule.dr, 30 MG PO DAILY, (Reported) Fludrocortisone Acetate 0.1 Mg Tab, 0.1 MG PO DAILY, (Reported) Glipizide 5 Mg Tablet, 2.5 MG PO DAILY, (Reported) TAKES 1/2 OF A (5 MG) TABLET Hydrocodone/Acetaminophen 1 Each Tablet, 1 TAB PO Q6H PRN for PAIN, (Reported) Hydrocortisone 20 Mg Tablet, 20 MG PO DAILY, (Reported) Hydrocortisone 20 Mg Tablet, 10 MG PO DAILY@1500, (Reported) TAKES 1/2 OF A (20 MG) TABLET Mag Hydrox/Al Hydrox/Simeth 30 Ml Oral.susp, 30 ML PO TIDAC@0730,1100,1600, ( Reported) Metformin HCl 500 Mg Tab.er.24h, 1,000 MG PO BID, (Reported) TAKES 2 (500 MG) TABLETS Nystatin 60 Gm Powder, TP BID, (Reported) APPLIED TO ABDOMINAL FOLDS AND THIGH Zinc Oxide 113 Gm Cream..g., TP BID PRN for RASH, (Reported) Past Gcwruaz-Gkinmr-Hssskq Hx Patient Social History Alcohol Use: Denies Use Recreational Drug Use: No Smoking Status: Unknown if Ever Smoked Recent Foreign Travel: No Contact w/Someone Who Travel: No Recent Infectious Disease Expo: No Recent Hopitalizations: Yes Physical Abuse Screen: No Sexual Abuse: No Immunizations Up To Date Tetanus Booster (TDap): Unknown Date of Pneumonia Vaccine: Jun 01, 2013 Date of Influenza Vaccine: Jul 08, 2016 Surgeries HX Surgeries: Yes (pituitary tumor removed, gastric surgery-pt unsure of name) Surgeries: Abdominal, Breast, Gallbladder, Orthopedic, Tracheostomy Respiratory Hx Respiratory Disorders: Yes (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) Cardiovascular Hx Cardiac Disorders: Yes Cardiac Disorders: High Cholesterol, Hypertension Neurological Hx Neurological Disorders: Yes Neurological Disorders: Dementia Reproductive System Hx Reproductive Disorders: No HIV/AIDS: No Female Reproductive Disorders: Denies Genitourinary Hx Genitourinary Disorders: Yes Genitourinary Disorders: Bladder Infection, Renal Failure Gastrointestinal Hx Gastrointestinal Disorders: Yes (DYSPHAGIA) Gastrointestinal Disorders: Gastroesophageal Reflux, Gastrointestinal Bleed, Ulcer, Gall Bladder Disease Musculoskeletal Hx Musculoskeletal Disorders: Yes Musculoskeletal Disorders: Chronic Back Pain, Fractures Endocrine Hx Endocrine Disorders: Yes (ADRENOCORTICAL INSUFFICIENCY. ) Endocrine Disorders: Adrenal Disease, Hypothyroidsim, Pituitary Disease, Diabetes, Non-Insulin dep HEENT HX ENT Disorders: Yes (DYSPHAGIA) HEENT Disorders: Cataract, Glaucoma Loss of Vision: Left Hearing Impairment: Hard of Hearing Cancer Hx Cancer: Yes (right masectomy) Cancer: Breast Psychosocial Hx Psychiatric Problems: Yes Behavioral Health Disorders: Anxiety, Depression Integumentary HX Skin/Integumentary Disorder: No Blood Transfusions Hx Blood Disorders: No Adverse Reaction to a Blood Tr: No Reviewed Nursing Assessment Reviewed/Agree w Nursing PMH: Yes Family Medical History Significant Family History: No Pertinent Family Hx Family Medial History: Physical Exam-General Problems Physical Exam Vital Signs Vital Sign - Last 12Hours 12/02/16 12/03/16 12/03/16 23:07 00:25 03:05 Temp 97.0 Pulse 82 Resp 17 B/P (MAP) 150/99 Pulse Ox 98 O2 Delivery Nasal Cannula O2 Flow Rate 2.00 Capillary Refill : Greater Than 3 SecondsLess Than 3 Seconds Assessment/Plan Assessment/Plan Admission Diagnosis/Plan Dx: Intertrochanteric fracture of the left hip Plan: Lt hip trochanteric fixation nail Clinical Quality Measures DVT/VTE Risk/Contraindication: Risk Factor Score Per Nursin RFS Level Per Nursing on Admit: 4+=Very High LUIS SINGH APRN Dec 03, 2016 16:40
[2016-12-03] MEDS ORDERED: ceFAZolin 1,000 MG (ANCEF) VIAL ONE (16:52)
--- NOTE | 2016-12-03 17:55 | Progress Note-Post Operative ---
Post-Operative Progess Note Surgeon (s)/High School Math Teacher (s) Surgeon ERMA MONTERO DO High School Math Teacher: Debbie Moody NP Pre-Operative Diagnosis closed comminuted inter/subtrochanteric fx left hip Post-Operative Diagnosis closed comminuted inter/subtrochanteric fx left hip Post-Op Procedure Note Date of Procedure: Dec 03, 2016 Name of Procedure Performed: TFN IM gagan left hip Description of the Procedure: 12 mm im tfn gagan inserted through open incision, 40mm locking screw distally in place 1st assist- Debbie Moody NP Findings of the Procedure IM gagan distally in place left hip Estimated blood loss (mL): 200 ml Packing: general/ketamine anes ebl 200 ml no drain return to ICU no specimens Specimen(s) collected/removed n/a ERMA MONTERO DO Dec 03, 2016 17:55
[2016-12-03] MEDS ORDERED: PHENYLEPHRINE INJ 10 MG/ML (NEO-SYNEPHRINE 1%) ONE ×2 (18:07→22:48)
[2016-12-03] MEDS ORDERED: morphine INJ 10 MG/ML 1ML (SYR OR VIAL) IV PRN (18:15)
--- NOTE | 2016-12-03 19:17 | Diagnostic Imaging Report ---
INDICATION: Left hip pain. FINDINGS: 48.2 seconds of fluoroscopy was used during internal fixation of the left hip. 3 digital images show internal fixation of an intertrochanteric fracture of the left hip with a dynamic compression device. IMPRESSION: Good alignment of the left hip following internal fixation. Dictated by: Dictated on workstation # [id number]
[2016-12-03 19:31] LABS: ANION GAP 5 MMOL/L (5-14); BLOOD UREA NITROGEN 11 MG/DL (7-18); BUN/CREATININE RATIO 14; CALCIUM 7.1 MG/DL (8.5-10.1); CARBON DIOXIDE 25 MMOL/L (21-32); CHLORIDE 113 MMOL/L (98-107); CREATININE SERUM 0.79 MG/DL (0.60-1.30); GFR ESTIMATED > 60; GLUCOSE 190 MG/DL (70-105); MAGNESIUM 1.7 MG/DL (1.8-2.4); PHOSPHORUS 2.9 MG/DL (2.3-4.7); POTASSIUM 4.1 MMOL/L (3.6-5.0); SODIUM 143 MMOL/L (135-145)
[2016-12-03 22:11] LABS: BASOPHILS % (AUTO) 0 % (0-10); EOSINOPHILS % (AUTO) 0 % (0-10); LYMPHOCYTES # (AUTO) 2.4 X 10^3 (1.0-4.0); LYMPHOCYTES % (AUTO) 18 % (12-44); MEAN CORPUSCULAR HEMOGLOBIN 29 PG (25-34); MEAN CORPUSCULAR HGB CONC 33 G/DL (32-36); MEAN CORPUSCULAR VOLUME 90 FL (80-99); MEAN PLATELET VOLUME 11.5 FL (7.4-10.4); MONOCYTES # (AUTO) 0.9 X 10^3 (0.0-1.0); MONOCYTES % (AUTO) 7 % (0-12); NEUTROPHILS # (AUTO) 9.7 X 10^3 (1.8-7.8); NEUTROPHILS % (AUTO) 74 % (42-75); PLATELET COUNT 154 10^3/uL (130-400); RED BLOOD COUNT 2.97 10^6/uL (4.35-5.85); RED CELL DISTRIBUTION WIDTH 14.8 % (10.0-14.5); WHITE BLOOD COUNT 13.1 10^3/uL (4.3-11.0)
--- NOTE | 2016-12-03 23:32 | Progress Note-Standard ---
Standard Progress Note Final Diagnosis Consulted for jose antonio placement per eICU. 20 gauge a-line placed to right radial x2 attempts walt well, taped and secured report to COMMERCIAL MANAGER. 100 mcg tal IV prior to placement. SLAVA SHELDON MEDICAL CHEMIST Dec 03, 2016 23:32
[2016-12-03 23:53] LABS: CALCIUM IONIZED 1.03 mmol/L (1.16-1.32); CORRECTED IONIZED CALCIUM 0.99 mmol/L (1.16-1.32)
[2016-12-04] VITALS (28 sets, daily range): BP systolic 74–151; BP diastolic 39–73
[2016-12-04] MEDS: NS IV 1000 ML 1,000 ML IV SCH (01:15)
[2016-12-04] MEDS: CLINDAMYCIN 900 MG/50 ML IVPB 50 ML IV SCH ×4 (01:33→23:22)
[2016-12-04] MEDS: FAMOTIDINE 20MG/2ML IV (PEPCID) IV SCH ×3 (01:33→23:22)
[2016-12-04] MEDS: HYDROCORTISONE 100 MG/2 ML (Solu-CORTEF) VIAL IV SCH ×2 (01:33→06:53)
[2016-12-04 04:34] LABS: BASOPHILS % (AUTO) 0 % (0-10); EOSINOPHILS % (AUTO) 0 % (0-10); LYMPHOCYTES # (AUTO) 0.9 X 10^3 (1.0-4.0); LYMPHOCYTES % (AUTO) 9 % (12-44); MEAN CORPUSCULAR HEMOGLOBIN 30 PG (25-34); MEAN CORPUSCULAR HGB CONC 33 G/DL (32-36); MEAN CORPUSCULAR VOLUME 90 FL (80-99); MEAN PLATELET VOLUME 10.9 FL (7.4-10.4); MONOCYTES # (AUTO) 0.7 X 10^3 (0.0-1.0); MONOCYTES % (AUTO) 6 % (0-12); NEUTROPHILS # (AUTO) 8.8 X 10^3 (1.8-7.8); NEUTROPHILS % (AUTO) 85 % (42-75); PLATELET COUNT 105 10^3/uL (130-400); RED CELL DISTRIBUTION WIDTH 14.8 % (10.0-14.5); WHITE BLOOD COUNT 10.4 10^3/uL (4.3-11.0)
[2016-12-04 04:54] LABS: ANION GAP 8 MMOL/L (5-14); BLOOD UREA NITROGEN 12 MG/DL (7-18); BUN/CREATININE RATIO 18; CALCIUM 6.8 MG/DL (8.5-10.1); CARBON DIOXIDE 20 MMOL/L (21-32); CHLORIDE 117 MMOL/L (98-107); CREATININE SERUM 0.66 MG/DL (0.60-1.30); GFR ESTIMATED > 60; GLUCOSE 192 MG/DL (70-105); MAGNESIUM 1.6 MG/DL (1.8-2.4); PHOSPHORUS 2.8 MG/DL (2.3-4.7); POTASSIUM 3.4 MMOL/L (3.6-5.0); SODIUM 145 MMOL/L (135-145)
[2016-12-04] MEDS ORDERED: POTASSIUM CL 10MEQ/50ML IVPB 50 ML IV SCH (06:00)
[2016-12-04] MEDS ORDERED: KCL 20 MEQ TAB (K-DUR) PO SCH (06:00)
[2016-12-04] MEDS ORDERED: LACTATED RINGERS 1,000 ML IV ONE (06:11)
--- NOTE | 2016-12-04 06:18 | Pulmonary Progress Note ---
Subjective Subjective/Events-last exam Pt is ICU status secondary to hypotension. Pt has been receiving IVF boluses and has responded. No worsening SOB yet. Exam Exam Vital Signs Date Time Temp Pulse Resp B/P (MAP) Pulse Ox O2 Delivery O2 Flow Rate FiO2 12/04/16 04:00 97 Nasal Cannula 2.00 12/04/16 02:00 97.1 72 10 112/65 98 Nasal Cannula 2.00 12/04/16 02:00 97 Nasal Cannula 2.00 12/04/16 01:00 97.1 72 10 112/65 98 Nasal Cannula 2.00 12/04/16 01:00 77 12/04/16 00:00 97.1 82 19 112/65 98 Room Air 12/04/16 00:00 97 Nasal Cannula 2.00 12/03/16 23:00 97.5 85 10 92/69 98 Room Air 12/03/16 22:30 97.5 12/03/16 22:00 97.5 74 18 75/37 96 Nasal Cannula 2.00 12/03/16 21:00 97.5 74 20 82/42 98 Nasal Cannula 2.00 12/03/16 20:00 97.5 69 14 67/39 100 Nasal Cannula 2.00 12/03/16 20:00 97 Nasal Cannula 2.00 12/03/16 19:00 98.5 72 10 112/65 98 Nasal Cannula 2.00 12/03/16 19:00 64 12/03/16 18:00 98.5 64 18 95/56 99 Nasal Cannula 2.00 12/03/16 16:00 98.5 72 10 112/65 98 Nasal Cannula 2.00 12/03/16 16:00 98 Nasal Cannula 2.00 12/03/16 13:00 67 12/03/16 12:00 97.9 68 7 88/49 98 Nasal Cannula 2.00 12/03/16 12:00 98 Nasal Cannula 2.00 12/03/16 11:00 73 7 116/71 100 Nasal Cannula 2.00 12/03/16 10:00 70 13 109/62 100 Nasal Cannula 2.00 12/03/16 09:00 75 25 105/71 99 Nasal Cannula 2.00 12/03/16 08:00 97.0 72 16 105/64 97 Nasal Cannula 2.00 12/03/16 08:00 98 2.00 12/03/16 07:00 70 12/03/16 07:00 71 7 100 Nasal Cannula 2.00 I & O 12/04/16 07:00 Intake Total 5810 ml Output Total 1370 ml Balance 4440 ml General Appearance: No Apparent Distress, WD/WN, Chronically ill, Obese Neck: Non Tender, Supple Respiratory: Chest Non Tender, Lungs Clear, No Accessory Muscle Use, No Respiratory Distress, Decreased Breath Sounds Cardiovascular: Regular Rate, Rhythm, No Edema, No Gallop, No JVD, No Murmur, Normal Peripheral Pulses Capillary Refill: Less Than 3 Seconds Gastrointestinal: hernia Extremity: Normal Capillary Refill, Normal Inspection, Normal Range of Motion, Non Tender, No Calf Tenderness, No Pedal Edema Neurologic/Psychiatric: Alert, No Motor/Sensory Deficits, Depressed Affect, Other (patient is sleeping) Skin: Normal Color, Warm/Dry Lymphatic: No Adenopathy Results Lab Laboratory Tests 12/02/16 22:20 12/03/16 04:45 12/03/16 19:05 12/04/16 04:25 Assessment/Plan Assessment/Plan fractured left hip s/p surgery -Mild Hypotension -improving with IVF -Left pleural effusion -Monitor Anemia - transfuse 1 unit PRBC -Chronic debility/dementia Clinical Quality Measures DVT/VTE Risk/Contraindication: Risk Factor Score Per Nursin RFS Level Per Nursing on Admit: 4+=Very High TOÑITO JOINER DO Dec 04, 2016 06:18
[2016-12-04] MEDS: ANTACID SUSP 30 ML UDC (MYLANTA) PO SCH ×3 (06:46→15:19)
[2016-12-04] MEDS: HYDROcodone/APAP 5 MG/325 MG (LORTAB) TAB PO PRN ×2 (06:48→15:19)
[2016-12-04] MEDS: glipiZIDE 5 MG (GLUCOTROL) TAB PO SCH (06:48)
[2016-12-04] MEDS: MAGNESIUM 1 GM/100 ML IVPB 100 ML IV SCH ×2 (06:53→08:35)
[2016-12-04 07:10] LABS: CALCIUM PH 7.34
[2016-12-04] MEDS ORDERED: LACTATED RINGERS 1,000 ML IV SCH (07:15)
--- NOTE | 2016-12-04 07:45 | Diagnostic Imaging Report ---
INDICATION: Followup. Postop left hip. COMPARISON: 12/03/2016 FINDINGS: Single frontal radiographic view of the chest was obtained. Cardiac silhouette and pulmonary vasculature are stable. Pleural effusions seen on recently performed CT chest are essentially inconspicuous on this exam. There is some right basilar airspace disease partially obscuring the right hemidiaphragm. There is some increasing interstitial opacification in the left upper lung. No pneumothorax is seen. Right upper extremity PICC line tip terminates in the right atrium. IMPRESSION: 1. Findings suspicious for developing atelectasis and/or infiltrate in the right base. 2. Patient's known pleural effusions are essentially inconspicuous on this exam. 3. Increasing interstitial opacification in the left upper lung concerning for developing infiltrate. Followup is recommended. Dictated by: Dictated on workstation # [id number]
[2016-12-04] MEDS: LACTATED RINGERS 1,000 ML IV SCH ×3 (08:03→20:49)
[2016-12-04] MEDS: DULoxetine 30 MG (CYMBALTA) CAP PO SCH (09:00)
[2016-12-04] MEDS: FLUDROCORTISONE 0.1 MG (FLORINEF) TAB PO SCH (09:00)
[2016-12-04] MEDS ORDERED: NS IV 500 ML 500 ML ONE (10:06)
--- NOTE | 2016-12-04 12:02 | Progress Note-Hospitalist ---
Progress Note HPI/CC on Admission CC: Left hip fracture with hypotension Chart Review: BP is now 95/64, Hgb 13.3 after 4500 fluids, WBC 16.6, ABG 7.40/39 /101, D-dimer 3.47, Lactic acid 3.17, Creat 0.85, UA is normal limits, CT active , No significant abnormality operation research analyst: Pt is very hypotensive 50/40. Pt hit 90s around 0600. Pt fell at [facility]. Dr. Leon will be on board. Pt had ECHO ordered by Dr. Leon but pt refused it. Pt had normal ECHO in May. Dr. Wheeler has not cleared pt for surgery. Pt is DNR. Maybe wait until pt has had stable BP. SW Review: Dr. Wang is on today. Patient Interview: Pt is unresponsive to Dr. Durbin questions. Physical exam was stable. Scribed by Kulwant Leal under the direct supervision of Dr. Mallory. Progress Notes/Assess & Plan Date Seen 12/04/16 Admission Dx/Process Assessment: Fall with hip fracture and subsequent hypotension requiring 4500 mL of aggressive IV fluids to maintain blood pressure 100 Severe dementia Multiple falls in the past Past Medical History per [facility] prior records: 1. Adrenal Insufficiency sp pituitary tumor resection- on chronic steroids 2. History of severe GI bleed with gastric ulcers s/p rozina-en-y by 11- 10, complicated by ARDS, prolonged ventilation with tracheostomy and acute renal failure requiring dialysis. Resolved 3. OA 4. DM 5. Left Eye blindness right eye glaucoma 6. HTN 7. HLP 8. Depression/anxiety 9. History of A-Flutter- inability to take anticoagulant due to bleed and falls 10. Steroid induced osteoporosis 11. Multiple falls resulting in hip fractures and multiple compression fractures 12. Tobaccoism Past Surgical History 1. Cholecystectomy 2. Ventral hernia 3. Hx mastectomy 4. Rt. Im Nail by Inna 2-14 5. Rozina-en-y procedure Diagonsis/Assessment & Plan Chart Review: Had uncomplicated hip fracture repair by Dr. Wang. Reverted back to IC status due to hypotension responded to fluids, WBC normal 10.4, Hgb 7.1, Urine culture E. coli Dr. Wheeler Review: Pt survived surgery. operation research analyst: Pt has had a lot of fluids. SW Review: Pt is a hospice candidate. Patient Interview: Pt is asleep in bed and did not wake up for exam. Physical exam was stable. Assessment: Fall with hip fracture and subsequent hypotension requiring 8000cc of fluid s/p repair POD # 1 Severe dementia Multiple falls in the past Past Medical History per [facility] prior records: 1. Adrenal Insufficiency sp pituitary tumor resection- on chronic steroids 2. History of severe GI bleed with gastric ulcers s/p rozina-en-y by 11- 10, complicated by ARDS, prolonged ventilation with tracheostomy and acute renal failure requiring dialysis. Resolved 3. OA 4. DM 5. Left Eye blindness right eye glaucoma 6. HTN 7. HLP 8. Depression/anxiety 9. History of A-Flutter- inability to take anticoagulant due to bleed and falls 10. Steroid induced osteoporosis 11. Multiple falls resulting in hip fractures and multiple compression fractures 12. Tobaccoism Plan: Palliative Care? Monitor in meantime Scribed by Kulwant Leal under the direct supervision of Dr. Mallory. CHIDI MALLORY DO Dec 04, 2016 12:02
--- NOTE | 2016-12-04 12:06 | Occ Therapy Progress Note ---
Therapy Progress Note Order received for OT eval and treat. Chart review completed. Spoke with RN who reports pt has been hypotensive and is also currently receiving blood. RN requests to hold therapy at this time secondary to medical issues. Will attempt evaluation on 12/05/16 as appropriate. MAXIME LEMUS OT Dec 04, 2016 12:06
--- NOTE | 2016-12-04 13:08 | Anesthesia-General Post-Op ---
General Patient Condition Mental Status/LOC: Same as Preop Cardiovascular: Satisfactory Nausea/Vomiting: Absent Respiratory: Satisfactory Pain: Controlled Complications: Absent Post Op Complications Complications None Follow Up Care/Instructions Patient Instructions None needed. Anesthesia/Patient Condition Patient Condition Patient is resting comfortably, no complaints, stable vital signs today, no apparent adverse anesthesia problems. She was hypotensive last night. Receiving blood currently, BP stable. RYAN SONG DO Dec 04, 2016 13:08
--- NOTE | 2016-12-04 13:47 | Physical Therapy Progress Note ---
Therapy Progress Note Chart review completed. Patient is on hold for now due to medical reasons. She is having blood pressure issues and is getting blood. Will attempt evaluation again on 12/05/16. MICHAEL BOWLES PT Dec 04, 2016 13:47
--- NOTE | 2016-12-04 14:30 | Progress Note-Standard ---
Standard Progress Note Progress Notes/Assess & Plan Progress/Assessment & Plan 12/04/16:operative fixation of left hip fracture completed. Postoperative anemia receiving blood transfusion. Comfortable. Final Diagnosis trochanteric fracture on the left side JED YANG MD Dec 04, 2016 2:30 pm
--- NOTE | 2016-12-04 14:40 | Physical Therapy Evaluation ---
PT Evaluation-General Medical Diagnosis Admission Date Dec 03, 2016 at 02:26 Medical Diagnosis: left hip intertrochanteric fracture Onset Date: Dec 03, 2016 Therapy Diagnosis Therapy Diagnosis: impaired mobility, strength, debility Height/Weight Height (Feet): 5 Height (Inches): 2.00 Weight (Pounds): 180 Weight (Ounces): 9.0 Precautions Precautions/Isolations: Standard Precautions Weight Bear Status Weight Bearing Restriction: Weight Bearing/Tolerated Location Restriction: L LE Referral Physician: Debbie Moody APRN Reason for Referral: Evaluation/Treatment Medical History Pertinent Medical History: Breast CA S/P Mastectomy, DM, Fractures, GERD, HTN, Hypothroidism Additional Medical History severe dementia, falls, adrenal insuff, GI bleed, OA, left eye blindness, HTN, HLP, depression, anxiety, a-flutter, steroid induced osteoporosis, surg ( cholecystectomy, ventral hernia, right IM nail 10/15 Current History fell at [facility] Reviewed History: Yes Social History Home: Residential Prior/[facility] Prior Level of Function Functional [place] Measure 0=Not Assessed/NA 4=Minimal Assistance 1=Total Assistance 5=Supervision or Setup 2=Maximal Assistance 6=Modified [place] 3=Moderate Assistance 7=Complete [place] Unknown, patient will not communicate, she just says "I'm asleep". PT Evaluation-Current Subjective Patient in bed pre tx, she is confused, just states "I'm asleep". Checked on patient this afternoon and she thinks patient would tolerate ROM in bed but does not want her out of bed at this time. Patient has no complaints of pain but does moan with ROM. Pt/Family Goals none stated Objective Patient Orientation: Confused heel protectors bilaterally ROM/Strength ROM Lower Extremities NT Strenght Lower Extremities NT Neuromuscular (Tone, Coordination, Reflexes) NT Sensory Vision: Unable to Assess Hearing: Unable to Assess Sensation Lower Extremities NT Transfers Functional [place] Measure 0=Not Assessed/NA 4=Minimal Assistance 1=Total Assistance 5=Supervision or Setup 2=Maximal Assistance 6=Modified [place] 3=Moderate Assistance 7=Complete [place] Treatment Patient performed no mobility. She received PROM to left lower extremity in all planes except for requirements of hip precautions. Assessment/Needs Patient has impaired mobility, strength, endurance, confusion. Rehab Potential: Poor PT Penitentiary Goals Penitentiary Goals PT Penitentiary Goals Time Frame: Dec 11, 2016 Transfers (B,C,W/C) (FIM): 3 Gait (FIM): 1 Distance: 5' Gait Level of Assist: 3 Gait Assistive Device: FWW PT Plan Problem List Problem List: Activity Tolerance, Functional Strength, Safety, Balance, Gait, Transfer, Bed Mobility, ROM Treatment/Plan Treatment Plan: Continue Plan of Care Treatment Plan: Bed Mobility, Education, Functional Activity Rossi, Functional Strength, Gait, Safety, Therapeutic Exercise, Transfers Treatment Duration: Dec 11, 2016 # of days/week 5-6 Visits Per Week: 5-6 Minutes/Day (M-F): 15-30 Minutes/Day (Sat/Lopez): 15-30 Pt/Family Agrees w/Plan: Yes Safety Risks/Education Patient Education: Correct Positioning, Safety Issues Teaching Recipient: Patient Teaching Methods: Demonstration, Discussion Response to Teaching: Reinforcement Needed Discharge Recommendations Plan Patient will perform bed mobility and transfer training, balance and endurance training, functional strengthening, stair training, gait training, education, to improve functional mobility and independence at home. Therapy D/C Recommendations: Half-Way (TCU/NH) Time/GCodes Time In: 1415 Time Out: 1430 Total Billed Treatment Time: 15 Total Billed Treatment 1 visit [facility] 15 min MICHAEL BOWLES PT Dec 04, 2016 14:40
[2016-12-05] VITALS (7 sets, daily range): BP systolic 94–136; BP diastolic 56–82
[2016-12-05 04:45] LABS: BASOPHILS % (AUTO) 0 % (0-10); EOSINOPHILS % (AUTO) 0 % (0-10); LYMPHOCYTES % (AUTO) 20 % (12-44); MEAN CORPUSCULAR HEMOGLOBIN 30 PG (25-34); MEAN CORPUSCULAR HGB CONC 34 G/DL (32-36); MEAN CORPUSCULAR VOLUME 88 FL (80-99); MONOCYTES # (AUTO) 0.7 X 10^3 (0.0-1.0); MONOCYTES % (AUTO) 7 % (0-12); NEUTROPHILS # (AUTO) 7.5 X 10^3 (1.8-7.8); NEUTROPHILS % (AUTO) 73 % (42-75); PLATELET COUNT 101 10^3/uL (130-400); RED BLOOD COUNT 2.67 10^6/uL (4.35-5.85); RED CELL DISTRIBUTION WIDTH 14.8 % (10.0-14.5); WHITE BLOOD COUNT 10.2 10^3/uL (4.3-11.0)
[2016-12-05 05:01] LABS: ANION GAP 4 MMOL/L (5-14); BLOOD UREA NITROGEN 11 MG/DL (7-18); BUN/CREATININE RATIO 16; CALCIUM 7.4 MG/DL (8.5-10.1); CARBON DIOXIDE 24 MMOL/L (21-32); CHLORIDE 115 MMOL/L (98-107); CREATININE SERUM 0.67 MG/DL (0.60-1.30); GFR ESTIMATED > 60; GLUCOSE 147 MG/DL (70-105); MAGNESIUM 1.9 MG/DL (1.8-2.4); PHOSPHORUS 1.8 MG/DL (2.3-4.7); POTASSIUM 3.7 MMOL/L (3.6-5.0); SODIUM 143 MMOL/L (135-145)
--- NOTE | 2016-12-05 06:29 | Pulmonary Progress Note ---
Subjective Subjective/Events-last exam Pt is doing better. Hypotension resolved. Exam Exam Vital Signs Date Time Temp Pulse Resp B/P (MAP) Pulse Ox O2 Delivery O2 Flow Rate FiO2 12/05/16 02:00 75 16 100/57 94 Nasal Cannula 2.00 126/60 12/05/16 01:00 76 12/05/16 01:00 76 14 112/79 100 Nasal Cannula 2.00 130/56 12/05/16 00:00 97 Nasal Cannula 2.00 12/05/16 00:00 79 8 121/70 100 Nasal Cannula 2.00 136/65 12/04/16 23:00 75 9 130/61 100 Nasal Cannula 2.00 139/63 12/04/16 22:00 79 14 117/60 100 Nasal Cannula 2.00 149/67 12/04/16 21:41 2.00 12/04/16 21:00 78 14 123/65 100 Nasal Cannula 2.00 151/66 12/04/16 20:00 97 Nasal Cannula 2.00 12/04/16 20:00 74 11 119/61 100 Nasal Cannula 2.00 141/62 12/04/16 19:00 69 12/04/16 19:00 69 10 107/61 100 Nasal Cannula 2.00 127/51 12/04/16 18:02 95.7 74 14 93/48 92 Nasal Cannula 2.00 12/04/16 17:05 96.7 82 16 113/67 92 Nasal Cannula 2.00 12/04/16 16:50 94 Nasal Cannula 2.00 12/04/16 16:00 78 13 112/73 97 Nasal Cannula 2.00 135/60 12/04/16 15:00 82 13 137/62 94 Nasal Cannula 2.00 108/60 12/04/16 14:00 80 7 108/43 94 Nasal Cannula 2.00 134/56 12/04/16 13:33 96.0 79 14 139/56 96 2.00 12/04/16 13:00 74 12/04/16 13:00 80 13 99/39 95 Nasal Cannula 2.00 128/51 12/04/16 12:26 94 Nasal Cannula 2.00 12/04/16 12:00 69 13 99/55 97 Nasal Cannula 2.00 126/56 12/04/16 11:00 70 12 97/56 95 Nasal Cannula 2.00 117/45 12/04/16 10:47 96.0 79 14 137/56 98 2.00 12/04/16 10:46 96.5 70 12 103/58 99 2.00 12/04/16 10:27 98.9 72 12 102/61 97 2.00 12/04/16 10:00 73 11 94/52 93 Nasal Cannula 2.00 114/43 12/04/16 09:00 73 14 79/49 88 Nasal Cannula 2.00 108/46 12/04/16 08:10 92 Nasal Cannula 2.00 12/04/16 08:00 97.6 12/04/16 08:00 76 12 108/51 95 Nasal Cannula 2.00 95/52 12/04/16 07:00 88 13 96/69 98 Nasal Cannula 2.00 139/61 12/04/16 07:00 90 I & O 12/05/16 07:00 Intake Total 1480 ml Output Total 465 ml Balance 1015 ml General Appearance: No Apparent Distress, WD/WN, Chronically ill, Obese Neck: Non Tender, Supple Respiratory: Chest Non Tender, Lungs Clear, No Accessory Muscle Use, No Respiratory Distress, Decreased Breath Sounds Cardiovascular: Regular Rate, Rhythm, No Edema, No Gallop, No JVD, No Murmur, Normal Peripheral Pulses Capillary Refill: Less Than 3 Seconds Gastrointestinal: hernia Extremity: Normal Capillary Refill, Normal Inspection, Normal Range of Motion, Non Tender, No Calf Tenderness, No Pedal Edema Neurologic/Psychiatric: Alert, No Motor/Sensory Deficits, Depressed Affect, Other (patient is sleeping) Skin: Normal Color, Warm/Dry Lymphatic: No Adenopathy Results Lab Laboratory Tests 12/03/16 19:05 12/04/16 04:25 12/05/16 04:30 Assessment/Plan Assessment/Plan fractured left hip s/p surgery -Atelectasis with pleural effusion -Increase activity. PT/OT -Up to chair BID -Hep lock IVF -Monitor -Change SVNs to easy PAP -Chronic debility/dementia Transfer to 4th floor. Clinical Quality Measures DVT/VTE Risk/Contraindication: Risk Factor Score Per Nursin RFS Level Per Nursing on Admit: 4+=Very High TOÑITO JOINER DO Dec 05, 2016 06:29
[2016-12-05] MEDS ORDERED: RT-ALBUTEROL/IPRATROPIUM 3 ML (DUONEB) VIAL INH SCH (07:00)
--- NOTE | 2016-12-05 07:37 | Diagnostic Imaging Report ---
CLINICAL INDICATION: Patient postop left hip. EXAM: Portable chest x-ray upright view. COMPARISON: Portable chest x-ray upright view dated 12/04/2016. FINDINGS: There is interval development of a small opacity in the right mid to upper lung field which may represent lung infiltrate or atelectasis. There is also progression of atelectasis versus infiltrate in right lung base. There is improved aeration of the medial left upper lobe. There is stable consolidation left lung base. There is blunting of right costophrenic angle and a pleural effusion cannot be completely excluded. There is no pneumothorax. Again seen right PICC line with tip in the mid right atrial region. Cardiac silhouette and pulmonary vasculature is within normal limits. The remainder of this exam shows no significant interval change compared to the prior study of comparison. IMPRESSION: 1: There is interval increased right midlung field right lung base atelectasis versus infiltrate. There is slight improved aeration of the left upper lobe. 2: The remainder of this exam shows no significant interval change compared to the prior study of comparison. Dictated by: Dictated on workstation # [id number]
[2016-12-05] MEDS: CLINDAMYCIN 900 MG/50 ML IVPB 50 ML IV SCH (07:40)
[2016-12-05] MEDS: glipiZIDE 5 MG (GLUCOTROL) TAB PO SCH (07:57)
[2016-12-05] MEDS: ANTACID SUSP 30 ML UDC (MYLANTA) PO SCH ×2 (07:57→11:42)
[2016-12-05] MEDS: HYDROcodone/APAP 5 MG/325 MG (LORTAB) TAB PO PRN (07:57)
[2016-12-05] MEDS: FLUDROCORTISONE 0.1 MG (FLORINEF) TAB PO SCH (08:27)
[2016-12-05] MEDS: FAMOTIDINE 20MG/2ML IV (PEPCID) IV SCH (08:27)
[2016-12-05] MEDS: DULoxetine 30 MG (CYMBALTA) CAP PO SCH (08:27)
[2016-12-05] MEDS ORDERED: cefTRIAXone INJECTION 1,000 MG in NS (IVPB) 50 ML IV SCH (09:00)
--- NOTE | 2016-12-05 09:13 | OPERATIVE REPORT ---
PROCEDURE PHYSICIAN: ERMA MONTERO DATE OF PROCEDURE: 12/03/2016 PREOPERATIVE DIAGNOSIS: Closed comminuted intertrochanteric/subtrochanteric fracture left hip. POSTOPERATIVE DIAGNOSIS Closed comminuted intertrochanteric/subtrochanteric fracture left hip. PROCEDURE: TFN/IM gagan, left hip PERPETUAL INVENTORY CLERK: Debbie Moody MD The patient is from a retirement who had had a previous right hip fracture some years ago with a TFN on this side. Left side shows a comminuted intertroc with subtrochanteric extension present. The bone quality was fair. We were able to reduce the fracture, placed a 12 mm TFN gagan with a 100 mm screw and a 40 mm distal locking screw. The fracture was relatively stable at this point, despite the fairly significant trochanteric comminution. PROCEDURE: The patient was given Ketamine/general anesthetic, placed on the fracture table. The leg was brought out to length with mild internal rotation. This did give reasonable reduction with AP and lateral projection. After sterilely prepping and draping the hip, a posterolateral incision was made approximately 12 to 15 cm. Dissecting around the greater trochanter and the guide gagan was placed through the trochanter into the distal canal, checked. It was reamed to 15 and then the 12 mm short TFN gagan was placed. Guide gagan was placed into the lower third of the head and neck on the AP and central portion on the lateral, reamed to 105. 100 mm hip screw was then placed and then locked into place and then the distal locking screw was placed. It was drilled and measured to 40 and 40 was placed with just a couple of threads just on the opposite cortex. The fracture appeared to be stable at this time. The guide device for the TFN was then removed, the area was irrigated and closed in layers of 1 Vicryl, 0 Vicryl and caterina. The patient will be taken back to ICU in relatively stable condition. Estimated blood loss was 200 mL. Job ID: [id number] Dictated Date: 12/03/2016 17:49:00 Ram Car Operator Date: 12/04/2016 13:08:40 / joe
--- NOTE | 2016-12-05 09:32 | Physical Therapy Daily Note ---
PT Daily Note-Current Subjective Patient is in bed and is repeats, "What are we doing?". PT instructed patient multiple time the treatment will be exercises and transfer to chair. Pain Numeric Pain Scale: 10-Worst Possible Pain Location: Left Location Body Site: Hip Pain Description: Acute Mental Status Patient Orientation: Confused Attachments: Oxygen, Garibay Catheter, IV Transfers Functional [place] Measure 0=Not Assessed/NA 4=Minimal Assistance 1=Total Assistance 5=Supervision or Setup 2=Maximal Assistance 6=Modified [place] 3=Moderate Assistance 7=Complete IndependenceIRFPAI Quality Coding Scale 6 Independent with activity with or without an assistive device 5 Patient requires set up or clean up by helper. Patient completes activity by themselves 4 Supervision or touching assist (CGA). [place] provide cues , steadying assist 3 The helper provides less than half the effort to complete the activity 2 The helper provides more than half the effort to complete the activity 1 Dependent. The helper does all the effort to complete an activity 7 Patient refused to complete or attempt activity 9 The patient did not perform the activity before the current illness or injury 88 Not attempted due to Medical conditions or safety concerns Transfers (B, C, W/C) (FIM): 1 Scootin Supine to/from Sit: 1 Sit to/from Stand: 1 Bed to/from Chair: 1 Patient unable to initiate or assist with bed mobility or transfers. Weight Bearing Weight Bearing Restriction: Weight Bearing/Tolerated Location Restriction: L LE Exercises Supine Ex: Ankle pumps, Heel Slides, Hip abd/add Supine Reps: 10 (AAROM bilaterally) Seated Therapy Exercises: Ankle pumps, Long arc quads Seated Reps: 10 (AAROM bilaterally) Assessment Per OH PT, patient was refusing to ambulate prior to fall and was able to transfer bed to w/c. PT to increase activity as tolerated by patient. PT Snf Goals Snf Goals PT Resistor Inspector Goals Time Frame: Dec 11, 2016 Transfers (B,C,W/C) (FIM): 3 Gait (FIM): 1 Distance: 5' Gait Level of Assist: 3 Gait Assistive Device: FWW PT Plan Treatment/Plan Treatment Plan: Continue Plan of Care Treatment Plan: Bed Mobility, Education, Functional Activity Rossi, Functional Strength, Gait, Safety, Therapeutic Exercise, Transfers Treatment Duration: Dec 11, 2016 Visits Per Week: 5-6 Minutes/Day (M-F): 15-30 Minutes/Day (Sat/Lopez): 15-30 Discharge Recommendations Therapy D/C Recommendations: Jail (TCU/NH) Time/GCodes Time In: 900 Time Out: 915 Total Billed Treatment Time: 15 Total Billed Treatment 1 visit [facility] 15 min SALVADOR SÁNCHEZ PT Dec 05, 2016 09:32
[2016-12-05] MEDS ORDERED: HYDR-3812 PO (10:42)
[2016-12-05] MEDS ORDERED: DOCU-143 PO (10:42)
--- NOTE | 2016-12-05 10:43 | Discharge Inst-Skilled Nursing ---
Discharge Inst-Skilled NF Chief Complaint CC: Left hip fracture with hypotension Chart Review: BP is now 95/64, Hgb 13.3 after 4500 fluids, WBC 16.6, ABG 7.40/39 /101, D-dimer 3.47, Lactic acid 3.17, Creat 0.85, UA is normal limits, CT active , No significant abnormality taxation consultant: Pt is very hypotensive 50/40. Pt hit 90s around 0600. Pt fell at [facility]. Dr. Leon will be on board. Pt had ECHO ordered by Dr. Leon but pt refused it. Pt had normal ECHO in May. Dr. Wheeler has not cleared pt for surgery. Pt is DNR. Maybe wait until pt has had stable BP. SW Review: Dr. Wang is on today. Patient Interview: Pt is unresponsive to Dr. Durbin questions. Physical exam was stable. Scribed by Kulwant Leal under the direct supervision of Dr. Mallory. Patient Instructions Patient Problems: left hip fracture Severe dementia Slowe recovery and may be a hospice candidate Consult/Follow Up/Orders Follow Up Appt.: [facility] in 1 week Skilled NF Admit to: [facility] Certification (SNF) I certify that SNF services are required to be given on an inpatient basis because of the above named patient's need for intermediate care on a continuing basis for the conditions(s) for which he/she was receiving inpatient hospital services prior to his/her transfer to the SNF. Long-Term Facility Order: Nursing Services, Bank Cashier-Evaluate & Treat, Physical Therapy-Evaluate & Treat, Speech Language-Evaluate & Treat Discharge Diet: ADA Diet Daily Activity as Tolerated: Yes New & Resume Previous Orders New Medications: Docusate Sodium (Colace) 100 Mg Capsule 100 MG PO BID for 30 Days, CAP Continued Medications: Aspirin (Aspirin) 81 Mg Tab.chew 81 MG PO DAILY, TAB Duloxetine HCl (Duloxetine HCl) 30 Mg Capsule.dr 30 MG PO DAILY Fludrocortisone Acetate (Fludrocortisone Acetate) 0.1 Mg Tab 0.1 MG PO DAILY Glipizide (Glipizide) 5 Mg Tablet 2.5 MG PO DAILY TAKES 1/2 OF A (5 MG) TABLET Hydrocodone/Acetaminophen (Hydrocodon -Acetaminophen 5-325) 1 Each Tablet 1 TAB PO Q6H PRN for PAIN, #30 (This prescription has been renewed) Hydrocortisone (Hydrocortisone) 20 Mg Tablet 20 MG PO DAILY Hydrocortisone (Hydrocortisone) 20 Mg Tablet 10 MG PO DAILY@1500, TAB TAKES 1/2 OF A (20 MG) TABLET Mag Hydrox/Al Hydrox/Simeth (Mylanta Suspension) 30 Ml Oral.susp 30 ML PO TIDAC@0730,1100,1600, ML Metformin HCl (Metformin HCl ER) 500 Mg Tab.er.24h 1000 MG PO BID TAKES 2 (500 MG) TABLETS Nystatin (Nystop) 60 Gm Powder TP BID APPLIED TO ABDOMINAL FOLDS AND THIGH Zinc Oxide (Skin Protectant) 113 Gm Cream..g. TP BID PRN for RASH Mattie Mallory Dec 05, 2016 10:42 MATTIE MALLORY DO Dec 05, 2016 10:43
--- NOTE | 2016-12-05 10:55 | Discharge Summary-Hospitalist ---
Diagnosis/Chief Complaint Date of Admission Dec 03, 2016 at 02:26 Date of Discharge Discharge Date: Dec 05, 2016 Admission Diagnosis Assessment: Fall with hip fracture and subsequent hypotension requiring 4500 mL of aggressive IV fluids to maintain blood pressure 100 Severe dementia Multiple falls in the past Past Medical History per [facility] prior records: 1. Adrenal Insufficiency sp pituitary tumor resection- on chronic steroids 2. History of severe GI bleed with gastric ulcers s/p farhan-en-y by , complicated by ARDS, prolonged ventilation with tracheostomy and acute renal failure requiring dialysis. Resolved 3. OA 4. DM 5. Left Eye blindness right eye glaucoma 6. HTN 7. HLP 8. Depression/anxiety 9. History of A-Flutter- inability to take anticoagulant due to bleed and falls 10. Steroid induced osteoporosis 11. Multiple falls resulting in hip fractures and multiple compression fractures 12. Tobaccoism Past Surgical History 1. Cholecystectomy 2. Ventral hernia 3. Hx mastectomy 4. Rt. Im Nail by Zafuta 10-15 5. Farhan-en-y procedure Discharge Diagnosis Assessment: Fall with hip fracture and subsequent hypotension requiring 4500 mL of aggressive IV fluids to maintain blood pressure 100 POD # 2 Severe dementia Multiple falls in the past Past Medical History per [facility] prior records: 1. Adrenal Insufficiency sp pituitary tumor resection- on chronic steroids 2. History of severe GI bleed with gastric ulcers s/p farhan-en-y by , complicated by ARDS, prolonged ventilation with tracheostomy and acute renal failure requiring dialysis. Resolved 3. OA 4. DM 5. Left Eye blindness right eye glaucoma 6. HTN 7. HLP 8. Depression/anxiety 9. History of A-Flutter- inability to take anticoagulant due to bleed and falls 10. Steroid induced osteoporosis 11. Multiple falls resulting in hip fractures and multiple compression fractures 12. Tobaccoism Past Surgical History 1. Cholecystectomy 2. Ventral hernia 3. Hx mastectomy 4. Rt. Im Nail by Zafuta 10-15 5. Farhan-en-y procedure Chart Review: Had uncomplicated hip fracture repair by Dr. Wang. Reverted back to IC status due to hypotension responded to fluids, WBC normal 10.4, Hgb 7.1, Urine culture E. coli Dr. Wheeler Review: Pt survived surgery. development system efficiency manager: Pt has had a lot of fluids. SW Review: Pt is a hospice candidate. Patient Interview: Pt is asleep in bed and did not wake up for exam. Physical exam was stable. Assessment: Fall with hip fracture and subsequent hypotension requiring 8000cc of fluid s/p repair POD # 1 Severe dementia Multiple falls in the past Past Medical History per [facility] prior records: 1. Adrenal Insufficiency sp pituitary tumor resection- on chronic steroids 2. History of severe GI bleed with gastric ulcers s/p farhan-en-y by 11- 10, complicated by ARDS, prolonged ventilation with tracheostomy and acute renal failure requiring dialysis. Resolved 3. OA 4. DM 5. Left Eye blindness right eye glaucoma 6. HTN 7. HLP 8. Depression/anxiety 9. History of A-Flutter- inability to take anticoagulant due to bleed and falls 10. Steroid induced osteoporosis 11. Multiple falls resulting in hip fractures and multiple compression fractures 12. Tobaccoism Plan: Palliative Care? Monitor in meantime Scribed by Kulwant Leal under the direct supervision of Dr. Mallory. Reason Hospital Visit/Course CC: Left hip fracture with hypotension Chart Review: BP is now 95/64, Hgb 13.3 after 4500 fluids, WBC 16.6, ABG 7.40/39 /101, D-dimer 3.47, Lactic acid 3.17, Creat 0.85, UA is normal limits, CT active , No significant abnormality development system efficiency manager: Pt is very hypotensive 50/40. Pt hit 90s around 0600. Pt fell at [facility]. Dr. Leon will be on board. Pt had ECHO ordered by Dr. Leon but pt refused it. Pt had normal ECHO in May. Dr. Wheeler has not cleared pt for surgery. Pt is DNR. Maybe wait until pt has had stable BP. SW Review: Dr. Wang is on today. Patient Interview: Pt is unresponsive to Dr. Durbin questions. Physical exam was stable. Scribed by Kulwant Leal under the direct supervision of Dr. Mallory. Note from 12/05/16 Chart Review: Pt becomes more and more unmotivated as the days pass, Vitals remain stable, Urine culture negative on final report so will DC ABC, Hgb stable at 8 after transfuse yesterday, Rest of labs normal Pharmacy Review: No actual infection. ABX will be DC. Will move to [place] on hospice. Pt will go to [place] on home meds. Palliative Care Review: Pt will be moved to [place]. development system efficiency manager: Dr. Wheeler wants to send pt to floor. Pt will be DC back to [place]. SW Review: Pt will be DC to [place]. Pt did wake up today. Patient Interview: Pt states she is doing okay. Pt states she is breathing okay. Physical exam was stable. Pt says "okay" when asked if she needs anything. Scribed by Kulwant Leal under the direct supervision of Dr. Mallory. No fever, vital signs stable, pleasant, improved, confused, hard of hearing Regular rate and rhythm, clear to auscultation bilaterally Nonpitting edema from fluid given IV Hospital course: Patient had a lengthy hospital course she was hospitalized following a hip fracture and underwent repair by Dr. Wang that was uncomplicated. Hypotension from ongoing orthostasis since pituitary tumor resected in maintained on Florinef and hydrocortisone chronically was managed with aggressive IV fluid resuscitation. Overall her dementia and overall decline status including usp debility prompted discharge to usp on skilled but prognosis very poor and likely a hospice candidate. Unable to modify any factors in order to help recover anymore then going to the usp today. Discharge Summary Discharge Physical Examination Allergies: Coded Allergies: Penicillins (Unverified Allergy, Mild, 08/03/08) Vitals & I&Os Vital Signs Date Time Temp Pulse Resp B/P (MAP) Pulse Ox O2 Delivery O2 Flow Rate FiO2 12/05/16 11:22 99 0.50 12/05/16 09:00 96.1 Nasal Cannula 12/05/16 07:00 77 12/05/16 06:00 14 Hospital Course Labs (last 24 hrs) Laboratory Tests 12/04/16 12:35: Glucometer 246H 12/04/16 17:55: Glucometer 282H 12/05/16 04:30: White Blood Count 10.2, Red Blood Count 2.67L, Hemoglobin 8.0L, Hematocrit 24L, Mean Corpuscular Volume 88, Mean Corpuscular Hemoglobin 30, Mean Corpuscular Hemoglobin Concent 34, Red Cell Distribution Width 14.8H, Platelet Count 101L, Mean Platelet Volume 11.0H, Neutrophils (%) (Auto) 73, Lymphocytes (%) (Auto) 20 , Monocytes (%) (Auto) 7, Eosinophils (%) (Auto) 0, Basophils (%) (Auto) 0, Neutrophils # (Auto) 7.5, Lymphocytes # (Auto) 2.0, Monocytes # (Auto) 0.7, Eosinophils # (Auto) 0.0, Basophils # (Auto) 0.0, Sodium Level 143, Potassium Level 3.7, Chloride Level 115H, Carbon Dioxide Level 24, Anion Gap 4L, Blood Urea Nitrogen 11, Creatinine 0.67, Estimat Glomerular Filtration Rate > 60, BUN/ Creatinine Ratio 16, Glucose Level 147H, Calcium Level 7.4L, Phosphorus Level 1.8L, Magnesium Level 1.9 12/05/16 11:10: Glucometer 104 Microbiology 12/03/16 Blood Culture - Preliminary, Resulted No growth 12/02/16 Urine Culture - Final, Complete Proteus Mirabilis Escherichia Coli Pending Labs Laboratory Tests 12/05/16 04:30: White Blood Count 10.2, Red Blood Count 2.67, Hemoglobin 8.0, Hematocrit 24, Mean Corpuscular Volume 88, Mean Corpuscular Hemoglobin 30, Mean Corpuscular Hemoglobin Concent 34, Red Cell Distribution Width 14.8, Platelet Count 101, Mean Platelet Volume 11.0, Neutrophils (%) (Auto) 73, Lymphocytes (%) (Auto) 20 , Monocytes (%) (Auto) 7, Eosinophils (%) (Auto) 0, Basophils (%) (Auto) 0, Neutrophils # (Auto) 7.5, Lymphocytes # (Auto) 2.0, Monocytes # (Auto) 0.7, Eosinophils # (Auto) 0.0, Basophils # (Auto) 0.0, Sodium Level 143, Potassium Level 3.7, Chloride Level 115, Carbon Dioxide Level 24, Anion Gap 4, Blood Urea Nitrogen 11, Creatinine 0.67, Estimat Glomerular Filtration Rate > 60, BUN/ Creatinine Ratio 16, Glucose Level 147, Calcium Level 7.4, Phosphorus Level 1.8 , Magnesium Level 1.9 12/05/16 11:10: Glucometer 104 Discharge Home Medications: Active Scripts Active Colace (Docusate Sodium) 100 Mg Capsule 100 Mg PO BID 30 Days Hydrocodon -Acetaminophen 5-325 (Hydrocodone/Acetaminophen) 1 Each Tablet 1 Tab PO Q6H PRN Reported Mylanta Suspension (Al Hydrox/Mg Hydrox/Simethicone) 30 Ml Oral.susp 30 Ml PO TIDAC@0730,1100,1600 Aspirin 81 Mg Tab.chew 81 Mg PO DAILY Duloxetine HCl 30 Mg Capsule.dr 30 Mg PO DAILY Hydrocortisone 20 Mg Tablet 10 Mg PO DAILY@1500 TAKES 1/2 OF A (20 MG) TABLET Metformin HCl ER (Metformin HCl) 500 Mg Tab.er.24h 1,000 Mg PO BID TAKES 2 (500 MG) TABLETS Nystop (Nystatin) 60 Gm Powder TP BID APPLIED TO ABDOMINAL FOLDS AND THIGH Glipizide 5 Mg Tablet 2.5 Mg PO DAILY TAKES 1/2 OF A (5 MG) TABLET Skin Protectant (Zinc Oxide) 113 Gm Cream..g. TP BID PRN Hydrocortisone 20 Mg Tablet 20 Mg PO DAILY Fludrocortisone Acetate 0.1 Mg Tab 0.1 Mg PO DAILY Instructions to patient/family Please see electonic discharge instructions given to patient. Clinical Quality Measures DVT/VTE Risk/Contraindication: Risk Factor Score Per Nursin RFS Level Per Nursing on Admit: 4+=Very High CHIDI MALLORY DO Dec 05, 2016 10:55
[2016-12-05] MEDS: RT-ALBUTEROL/IPRATROPIUM 3 ML (DUONEB) VIAL INH SCH ×2 (11:21→14:22)
--- NOTE | 2016-12-05 12:12 | Occupational Therapy Eval ---
OT Evaluation-General/PLF Medical Diagnosis Admission Date Dec 03, 2016 at 02:26 Medical Diagnosis: left hip intertrochanteric fracture Onset Date: Dec 03, 2016 Therapy Diagnosis Therapy Diagnosis: impaired self care skills Height/Weight Height (Feet): 5 Height (Inches): 2.00 Weight (Pounds): 180 Weight (Ounces): 14.0 Precautions Precautions/Isolations: Fall Prevention, Standard Precautions Safety Interventions: Bed Exit Alarm Weight Bear Status Weight Bearing Restriction: Weight Bearing/Tolerated Location Restriction: L LE Referral Physician: Debbie Moody [employer] [employer] [facility] Medical History Pertinent Medical History: Breast CA S/P Mastectomy, DM, Fractures, GERD, HTN, Hypothroidism Additional Medical History high cholesterol, ARDS, pituitary tumor, GI bleed, chronic back pain, glaucoma, anxiety, depression Current History Fall with left hip fracture Social History Home: [facility] ADL-Prior Level of Function ADL PLOF Comments Pt unable to provide information regarding PLOF. Per chart pt has been at [facility] OT Current Status Subjective Pt sitting in chair. Pt states "I'm okay," when asked about pain level. Pt confused. Mental Status/Objective Patient Orientation: Person, Confused Current Upper Extremity ROM Pt does not follow instructions for ROM testing. Pt allow PROM which appears to be grossly functional. Upper Extremity Coordination Impaired Upper Extremity Strength Unable to assess secondary to pt not following commands for MMT Edema: Pt has edema bilateral UE ADL-Treatment ADL-Current UE assessment completed while pt seated in chair. Pt able to initiate washing face, but requires moderate assistance to complete task. Pt easily distracted and states multiple times "Let me sleep" during session. Pt in chair with needs met and RT present after session. Functional [place] Measure 0=Not Assessed/NA 4=Minimal Assistance 1=Total Assistance 5=Supervision or Setup 2=Maximal Assistance 6=Modified [place] 3=Moderate Assistance 7=Complete IndependenceIRFPAI Quality Coding Scale 6 Independent with activity with or without an assistive device 5 Patient requires set up or clean up by helper. Patient completes activity by themselves 4 Supervision or touching assist (CGA). [place] provide cues , steadying assist 3 The helper provides less than half the effort to complete the activity 2 The helper provides more than half the effort to complete the activity 1 Dependent. The helper does all the effort to complete an activity 7 Patient refused to complete or attempt activity 9 The patient did not perform the activity before the current illness or injury 88 Not attempted due to Medical conditions or safety concerns Education OT Patient Education: Rehab process Teaching Recipient: Patient Teaching Methods: Discussion Response to Teaching: Unable to Comprehend OT Short Term Goals Short Term Goals 1=Demonstrate adherence to instructed precautions during ADL tasks. 2=Patient will verbalize/demonstrate understanding of assistive devices/ modifications for ADL. 3=Patient will improve strength/tolerance for activity to enable patient to perform ADL's. OT [facility]dc Goals Correspondence Coordinator Goals Time Frame: Dec 12, 2016 Eating (FIM): 5 Grooming(FIM): 5 Toilet/Commode Transfer(FIM): 3 1=Demonstrate adherence to instructed precautions during ADL tasks. 2=Patient will verbalize/demonstrate understanding of assistive devices/ modifications for ADL. 3=Patient will improve strength/tolerance for activity to enable patient to perform ADL's. OT Education/Plan Problem List/Assessment Assessment: Decreased Activ Tolerance, Decreased UE Strength, Dependent Transfers, Restricted Funct UE ROM Pt to benefit from skilled OT intervention for ADL training, transfers, and strengthening to maximize level of function and allow safe discharge. Discharge Recommendations Plan/Recommendations: Continue POC Therapy D/C Recommendations: [facility] (TCU/NH) Treatment Plan/Plan of Care Treatment,Training & Education: Yes Patient would benefit from OT for education, treatment and training to promote independence in ADL's, mobility, safety and/or upper extremity function for ADL' s. Plan of Care: ADL Retraining, Functional Mobility, UE Funct Exercise/Act Treatment Duration: Dec 12, 2016 # of days/week 5 Visits Per Week: 5 Rehab Potential: Poor Time/GCodes Start Time: 11:11 Stop Time: 11:21 Total Time Billed (hr/min): 10 Billed Treatment Time 1 visit, SARAH(10minutes) MAXIME LEMUS OT Dec 05, 2016 12:12
--- NOTE | 2016-12-05 15:27 | Progress Note-Standard ---
Standard Progress Note Progress Notes/Assess & Plan Progress/Assessment & Plan The patient was seen as she was preparing to be transported to a care home. S- Nursing reported the wound looked well, no redness. O- Dressing clean and dry except for small serous drainage. Pt moving toes and ankle on left side Gentle PROM to hip without much pain. A- Ortho stable after Open Reduction and Internal Fixation of left femur fracture P- OK to D/C from ICU to [facility]. Follow up as planned. Call Ortho 4 State if needed SHAY ARIZMENDI MD Dec 05, 2016 15:27
--- NOTE | 2016-12-07 19:11 | Diagnostic Imaging Report ---
INDICATION: Abdominal pain CT of the abdomen and pelvis obtained without IV contrast. Comparison made with 12/03/16, the previous day. Bilateral pleural effusions are present with mild increase in left pleural fluid and more significant increase in right pleural effusion compared to the prior study. There is bibasilar atelectasis. There is no free intraperitoneal air. The liver and spleen appear unremarkable. The kidneys bilaterally show no hydronephrosis or overt mass without contrast. Pancreas and adrenals appear unremarkable. There is no retroperitoneal mass. There is a large ventral hernia noted containing omentum as well as multiple loops of bowel which do not appear obstructed. There is no ascites or abnormal fluid collection. There is a left adnexal cyst measuring about 3.5 cm. There is postop change in the left hip with some ill-defined edema in the soft tissues. There is an ill-defined swelling of the left gluteal muscles which may be postoperative in nature. IMPRESSION: Bilateral pleural effusions are present which are increased compared to previous study. There is bibasilar atelectasis. There is a large ventral hernia without evidence of bowel obstruction. There is a left adnexal cyst. There is postop change in the left hip with some ill-defined edema in the left gluteal muscles without a discrete or well-defined hematoma. Dictated by: Dictated on workstation # [id number]
--- OUTSIDE RECORDS SUMMARY | 2017-01-05 07:15 | XMS REPORT ---
Author Author MARYBETH WESTON Organization [employer] Address Unknown Phone Unavailable Care Team Providers Care Conduit Helper Name Role Phone MARYBETH WESTON Unavailable Allergies No Known Allergies Problems Problem Type Condition Code Onset Dates Condition Status Problem Adrenal insufficiency E27.40 Active Problem Back pain M54.9 Active Problem Diabetes E11.9 Active Assessment Back pain M54.9 Active Problem Unspecified hypothyroidism 244.9 Active Assessment Hypokalemia E87.6 Active Medications Medication Code System Code Instructions Start Date End Date Status Dosage Lidoderm [facility] [address]-64 5 % Externally Once a day Aug 15, 2015 1 patch to intact skin remove after 12 hours Potassium Chloride [facility] [address]-33 10 Orally Once a day Aug 15, 2015 1 Results No Known Results Summary Purpose [employer] Submission
--- OUTSIDE RECORDS SUMMARY | 2017-01-05 07:15 | XMS REPORT | Continuity of Care Document ---
Author Author [facility] Address Unknown Phone Unavailable Allergies Active Description Code Type Severity Reaction Onset Reported/Identified Relationship to Patient Clinical Status Yes Penicillins [id number] Drug Allergy Mild N/A 08/03/2008 Yes ampicillin Drug Allergy 10/11/2008 Yes ampicillin Drug Allergy N/A N/A 10/11/2008 Medications Problems Date Dx Coded Attending Type Code Diagnosis Diagnosed By 04/06/2008 MARYBETH WESTON MD 250.00 DIABETES MELLITUS TYPE II - UNCOMPLICATED, CONTROLLED 04/06/2008 250.00 DIABETES MELLITUS TYPE II - UNCOMPLICATED, CONTROLLED 04/06/2008 MARYBETH WESTON MD 250.00 DIABETES MELLITUS TYPE II - UNCOMPLICATED, CONTROLLED 04/06/2008 MARYBETH WESTON MD 250.00 DIABETES MELLITUS TYPE II - UNCOMPLICATED, CONTROLLED 04/06/2008 MARYBETH WESTON MD 250.00 DIABETES MELLITUS TYPE II - UNCOMPLICATED, CONTROLLED 04/06/2008 KATELYNN ACEVEDO APRN 250.00 DIABETES MELLITUS TYPE II - UNCOMPLICATED, CONTROLLED 04/06/2008 KATELYNN ACEVEDO APRN 250.00 DIABETES MELLITUS TYPE II - UNCOMPLICATED, CONTROLLED 04/06/2008 MARYBETH WESTON MD 250.00 DIABETES MELLITUS TYPE II - UNCOMPLICATED, CONTROLLED 04/06/2008 KATELYNN CAEVEDO APRN 250.00 DIABETES MELLITUS TYPE II - UNCOMPLICATED, CONTROLLED 04/06/2008 MARYBETH WESTON MD 250.00 DIABETES MELLITUS TYPE II - UNCOMPLICATED, CONTROLLED 08/11/2008 MARYBETH WESTON MD 250.02 Diabetes Mellitus Type Ii - Uncomplicated, Uncontrolled 08/11/2008 250.02 Diabetes Mellitus Type Ii - Uncomplicated, Uncontrolled 08/11/2008 MARYBETH WESTON MD 250.02 Diabetes Mellitus Type Ii - Uncomplicated, Uncontrolled 08/11/2008 MARYBETH WESTON MD 250.02 Diabetes Mellitus Type Ii - Uncomplicated, Uncontrolled 08/11/2008 MARYBETH WESTON MD 250.02 Diabetes Mellitus Type Ii - Uncomplicated, Uncontrolled 08/11/2008 KATELYNN ACEVEDO APRN S 250.02 Diabetes Mellitus Type Ii - Uncomplicated, Uncontrolled 08/11/2008 KATELYNN ACEVEDO APRN S 250.02 Diabetes Mellitus Type Ii - Uncomplicated, Uncontrolled 08/11/2008 MARYBETH WESTON MD 250.02 Diabetes Mellitus Type Ii - Uncomplicated, Uncontrolled 08/11/2008 KATELYNN ACEVEDO APRN S 250.02 Diabetes Mellitus Type Ii - Uncomplicated, Uncontrolled 08/11/2008 MARYBETH WESTON MD 250.02 Diabetes Mellitus Type Ii - Uncomplicated, Uncontrolled 10/11/2008 MARYBETH WESTON MD 729.5 Pain In The Leg (below The Knee) 10/11/2008 729.5 Pain In The Leg (below The Knee) 10/11/2008 MARYBETH WESTON MD9.5 Pain In The Leg (below The Knee) 10/11/2008 MARYBETH WESTON MD 729.5 Pain In The Leg (below The Knee) 10/11/2008 MARYBETH WESTON MD9.5 Pain In The Leg (below The Knee) 10/11/2008 KATELYNN ACEVEDO APRN S 729.5 Pain In The Leg (below The Knee) 10/11/2008 MACY ACEVEDO APRNA S 729.5 Pain In The Leg (below The Knee) 10/11/2008 MARYBETH WESTON MD 729.5 Pain In The Leg (below The Knee) 10/11/2008 KATELYNN ACEVEDO APRN S 729.5 Pain In The Leg (below The Knee) 10/11/2008 MARYBETH WESTON MD 729.5 Pain In The Leg (below The Knee) 03/21/2009 MARYBETH WESTON MD 110.1 Onychomycosis 03/21/2009 MARYBETH WESTON MD 250.6 DIABETES w/ NEURO 03/21/2009 MARYBETH WESTON MD 703.8 Onychocryptosis 03/21/2009 110.1 Onychomycosis 03/21/2009 250.6 DIABETES w/ NEURO 03/21/2009 703.8 Onychocryptosis 03/21/2009 MARYBETH WESTON MD 110.1 Onychomycosis 03/21/2009 MARYBETH WESTON MD 250.6 DIABETES w/ NEURO 03/21/2009 MARYBETH WESTON MD 703.8 Onychocryptosis 03/21/2009 TRISTA ARCINIEGA, MARYBETH 110.1 Onychomycosis 03/21/2009 TRISTA ARCINIEGA, MARYBETH 250.6 DIABETES w/ NEURO 03/21/2009 TRISTA ARCINIEGA, MARYBETH 703.8 Onychocryptosis 03/21/2009 TRISTA ARCINIEGA, MARYBETH 110.1 Onychomycosis 03/21/2009 MARYBETH WESTON MD 250.6 DIABETES w/ NEURO 03/21/2009 MARYBETH WESTON MD 703.8 Onychocryptosis 03/21/2009 [employer]SEL[employer], KATELYNN S 110.1 Onychomycosis 03/21/2009 CURTIS FAITHN, KATELYNN S 250.6 DIABETES w/ NEURO 03/21/2009 [employer] COUNSEL[employer], KATELYNN S 703.8 Onychocryptosis 03/21/2009 [employer] COUNSELOR, KATELYNN S 110.1 Onychomycosis 03/21/2009 CURTIS FAITHN, KATELYNN S 250.6 DIABETES w/ NEURO 03/21/2009 [employer] COUNSELOR, KATELYNN S 703.8 Onychocryptosis 03/21/2009 TRISTA ARCINIEGA, MARYBETH 110.1 Onychomycosis 03/21/2009 TRISTA ARCINIEGA, MARYBETH 250.6 DIABETES w/ NEURO 03/21/2009 MARYBETH WESTON MD 703.8 Onychocryptosis 03/21/2009 CURTIS MAN, KATELYNN S 110.1 Onychomycosis 03/21/2009 CURTIS MAN, KATELYNN S 250.6 DIABETES w/ NEURO 03/21/2009 CURTIS MAN, KATELYNN S 703.8 Onychocryptosis 03/21/2009 MARYBETH WESTON MD 110.1 Onychomycosis 03/21/2009 MARYBETH WESTON MD 250.6 DIABETES w/ NEURO 03/21/2009 MARYBETH WESTON MD 703.8 Onychocryptosis 04/07/2009 MARYBETH WESTON MD 715.90 OSTEOARTHRITIS 04/07/2009 715.90 OSTEOARTHRITIS 04/07/2009 TRISTA ARCINIEGA, MARYBETH 715.90 OSTEOARTHRITIS 04/07/2009 TRISTA ARCINIEGA, MARYBETH 715.90 OSTEOARTHRITIS 04/07/2009 MARYBETH WESTON MD 715.90 OSTEOARTHRITIS 04/07/2009 KATELYNN ACEVEDO APRN 715.90 OSTEOARTHRITIS 04/07/2009 KATELYNN ACEVEDO APRN 715.90 OSTEOARTHRITIS 04/07/2009 MARYBETH WESTON MD 715.90 OSTEOARTHRITIS 04/07/2009 KATELYNN ACEVEDO APRN 715.90 OSTEOARTHRITIS 04/07/2009 MARYBETH WESTON MD 715.90 OSTEOARTHRITIS 05/11/2009 MARYBETH WESTON MD 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 05/11/2009 MARYBETH WESTON MD 368.9 Visual Disturbances 05/11/2009 MARYBETH WESTON MD 781.2 Disturbance Of Gait 05/11/2009 MARYBETH WESTON MD V04.81 Flu Shot 05/11/2009 MARYBETH WESTON MD V05.8 Need For Prophylactic Vaccination And Inoculation Against Other Specified Disease 05/11/2009 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 05/11/2009 368.9 Visual Disturbances 05/11/2009 781.2 Disturbance Of Gait 05/11/2009 V04.81 Flu Shot 05/11/2009 V05.8 Need For Prophylactic Vaccination And Inoculation Against Other Specified Disease 05/11/2009 MARYBETH WESTON MD 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 05/11/2009 MARYBETH WESTON MD 368.9 Visual Disturbances 05/11/2009 MARYBETH WESTON MD 781.2 Disturbance Of Gait 05/11/2009 MARYBETH WESTON MD V04.81 Flu Shot 05/11/2009 MARYBETH WESTON MD V05.8 Need For Prophylactic Vaccination And Inoculation Against Other Specified Disease 05/11/2009 MARYBETH WESTON MD 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 05/11/2009 MARYBETH WESTON MD 368.9 Visual Disturbances 05/11/2009 MARYBETH WESTON MD 781.2 Disturbance Of Gait 05/11/2009 MARYBETH WESTON MD V04.81 Flu Shot 05/11/2009 MARYBETH WESTON MD V05.8 Need For Prophylactic Vaccination And Inoculation Against Other Specified Disease 05/11/2009 MARYBETH WESTON MD 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 05/11/2009 MARYBETH WESTON MD 368.9 Visual Disturbances 05/11/2009 MARYBETH WESTON MD 781.2 Disturbance Of Gait 05/11/2009 MARYBETH WESTON MD V04.81 Flu Shot 05/11/2009 MARYBETH WESTON MD V05.8 Need For Prophylactic Vaccination And Inoculation Against Other Specified Disease 05/11/2009 CURTIS MAN KATELYNN S 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 05/11/2009 [employer] COUNSELOR, KATELYNN S 368.9 Visual Disturbances 05/11/2009 [employer] COUNSELOR, KATELYNN S 781.2 Disturbance Of Gait 05/11/2009 [employer] COUNSELOR, KATELYNN S V04.81 Flu Shot 05/11/2009 [employer] COUNSELOR, KATELYNN S V05.8 Need For Prophylactic Vaccination And Inoculation Against Other Specified Disease 05/11/2009 CURTIS MAN KATELYNN S 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 05/11/2009 [employer] COUNSELOR, KATELYNN S 368.9 Visual Disturbances 05/11/2009 [employer] COUNSELOR, KATELYNN S 781.2 Disturbance Of Gait 05/11/2009 CURTIS MAN, KATELYNN S V04.81 Flu Shot 05/11/2009 [employer] COUNSELOR, KATELYNN S V05.8 Need For Prophylactic Vaccination And Inoculation Against Other Specified Disease 05/11/2009 MARYBETH WESTON MD 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 05/11/2009 MARYBETH WESTON MD 368.9 Visual Disturbances 05/11/2009 MARYBETH WESTON MD 781.2 Disturbance Of Gait 05/11/2009 MARYBETH WESTON MD V04.81 Flu Shot 05/11/2009 MARYBETH WESTON MD V05.8 Need For Prophylactic Vaccination And Inoculation Against Other Specified Disease 05/11/2009 CURTIS MAN KATELYNN S 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 05/11/2009 CURT[employer] MAN KATELYNN S 368.9 Visual Disturbances 05/11/2009 CURT[employer] MAN KATELYNN S 781.2 Disturbance Of Gait 05/11/2009 CURTIS MAN KATELYNN S V04.81 Flu Shot 05/11/2009 CURTIS MAN KATELYNN S V05.8 Need For Prophylactic Vaccination And Inoculation Against Other Specified Disease 05/11/2009 MARYBETH WESTON MD 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 05/11/2009 MARYBETH WESTON MD 368.9 Visual Disturbances 05/11/2009 MARYBETH WESTON MD 781.2 Disturbance Of Gait 05/11/2009 MARYBETH WESTON MD V04.81 Flu Shot 05/11/2009 MARYBETH WESTON MD V05.8 Need For Prophylactic Vaccination And Inoculation Against Other Specified Disease 08/18/2009 MARYBETH WESTON MD 250.60 NEUROPATHY WITH NEUROLOGICAL MANIFESTATIONS TYPE II OR UNSPECIFIED TYPE NOT STATED UNCONTROLLED 08/18/2009 250.60 NEUROPATHY WITH NEUROLOGICAL MANIFESTATIONS TYPE II OR UNSPECIFIED TYPE NOT STATED UNCONTROLLED 08/18/2009 MARYBETH WESTON MD 250.60 NEUROPATHY WITH NEUROLOGICAL MANIFESTATIONS TYPE II OR UNSPECIFIED TYPE NOT STATED UNCONTROLLED 08/18/2009 MARYBETH WESTON MD 250.60 NEUROPATHY WITH NEUROLOGICAL MANIFESTATIONS TYPE II OR UNSPECIFIED TYPE NOT STATED UNCONTROLLED 08/18/2009 MARYBETH WESTON MD 250.60 NEUROPATHY WITH NEUROLOGICAL MANIFESTATIONS TYPE II OR UNSPECIFIED TYPE NOT STATED UNCONTROLLED 08/18/2009 KATELYNN ACEVEDO APRN S 250.60 NEUROPATHY WITH NEUROLOGICAL MANIFESTATIONS TYPE II OR UNSPECIFIED TYPE NOT STATED UNCONTROLLED 08/18/2009 KATELYNN ACEVEDO APRN S 250.60 NEUROPATHY WITH NEUROLOGICAL MANIFESTATIONS TYPE II OR UNSPECIFIED TYPE NOT STATED UNCONTROLLED 08/18/2009 MARYBETH WESTON MD 250.60 NEUROPATHY WITH NEUROLOGICAL MANIFESTATIONS TYPE II OR UNSPECIFIED TYPE NOT STATED UNCONTROLLED 08/18/2009 KATELYNN ACEVEDO APRN S 250.60 NEUROPATHY WITH NEUROLOGICAL MANIFESTATIONS TYPE II OR UNSPECIFIED TYPE NOT STATED UNCONTROLLED 08/18/2009 MARYBETH WESTON MD 250.60 NEUROPATHY WITH NEUROLOGICAL MANIFESTATIONS TYPE II OR UNSPECIFIED TYPE NOT STATED UNCONTROLLED 06/20/2010 MARYBETH WESTON MD 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 06/20/2010 MARYBETH WESTON MD 250.50 DIABETES WITH OPHTHALMIC MANIFESTATIONS TYPE II OR UNSPECIFIED TYPE NOT STATED UNCONTROLLED 06/20/2010 250.43 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 ] Uncontrolled 06/20/2010 250.50 DIABETES WITH OPHTHALMIC MANIFESTATIONS TYPE II OR UNSPECIFIED TYPE NOT STATED UNCONTROLLED 06/20/2010 MARYBETH WESTON MD 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 06/20/2010 MARYBETH WESTON MD 250.50 DIABETES WITH OPHTHALMIC MANIFESTATIONS TYPE II OR UNSPECIFIED TYPE NOT STATED UNCONTROLLED 06/20/2010 MARYBETH WESTON MD 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 06/20/2010 MARYBETH WESTON MD 250.50 DIABETES WITH OPHTHALMIC MANIFESTATIONS TYPE II OR UNSPECIFIED TYPE NOT STATED UNCONTROLLED 06/20/2010 MARYBETH WESTON 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 06/20/2010 MARYBETH WESTON MD 250.50 DIABETES WITH OPHTHALMIC MANIFESTATIONS TYPE II OR UNSPECIFIED TYPE NOT STATED UNCONTROLLED 06/20/2010 KATELYNN ACEVEDO APRN S 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 06/20/2010 KATELYNN ACEVEDO APRN S 250.50 DIABETES WITH OPHTHALMIC MANIFESTATIONS TYPE II OR UNSPECIFIED TYPE NOT STATED UNCONTROLLED 06/20/2010 KATELYNN ACEVEDO APRN S 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 06/20/2010 KATELYNN ACEVEDO APRN S 250.50 DIABETES WITH OPHTHALMIC MANIFESTATIONS TYPE II OR UNSPECIFIED TYPE NOT STATED UNCONTROLLED 06/20/2010 MARYBETH WESTON 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 06/20/2010 MARYBETH WESTON MD 250.50 DIABETES WITH OPHTHALMIC MANIFESTATIONS TYPE II OR UNSPECIFIED TYPE NOT STATED UNCONTROLLED 06/20/2010 KATELYNN ACEVEDO APRN S 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 06/20/2010 KATELYNN ACEVEDO APRN S 250.50 DIABETES WITH OPHTHALMIC MANIFESTATIONS TYPE II OR UNSPECIFIED TYPE NOT STATED UNCONTROLLED 06/20/2010 MARYBETH WESTON 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 06/20/2010 MARYBETH WESTON MD 250.50 DIABETES WITH OPHTHALMIC MANIFESTATIONS TYPE II OR UNSPECIFIED TYPE NOT STATED UNCONTROLLED 07/01/2010 Ot 564.00 07/01/2010 Ot 789.02 07/01/2010 Ot V71.4 07/02/2010 Ot 789.01 07/02/2010 Ot 807.01 07/02/2010 Ot E000.8 07/02/2010 Ot E928.9 07/13/2010 Ot 244.9 HYPOTHYROIDISM NOS 07/13/2010 Ot 250.00 DIAB ANIBAL WO COMPL, TYPE II OR UNSPEC TY 07/13/2010 Ot 272.4 HYPERLIPIDEMIA NEC/NOS 07/13/2010 Ot 276.69 OTHER FLUID OVERLOAD 07/13/2010 Ot 285.1 AC POSTHEMORRHAG ANEMIA 07/13/2010 Ot 365.9 GLAUCOMA NOS 07/13/2010 Ot 369.60 BLINDNESS, ONE EYE 07/13/2010 Ot 372.72 CONJUNCTIVAL HEMORRHAGE 07/13/2010 Ot 401.9 HYPERTENSION NOS 07/13/2010 Ot 458.9 HYPOTENSION NOS 07/13/2010 Ot 486 PNEUMONIA, ORGANISM NOS 07/13/2010 Ot 518.5 POST TRAUM PULM INSUFFIC 07/13/2010 Ot 530.11 REFLUX ESOPHAGITIS 07/13/2010 Ot 531.40 CHR STOMACH ULC W HEM 07/13/2010 Ot 570 ACUTE NECROSIS OF LIVER 07/13/2010 Ot 593.9 RENAL URETERAL DIS NOS 07/13/2010 Ot 715.90 OSTEOARTHROS NOS-UNSPEC 07/13/2010 Ot 733.00 OSTEOPOROSIS NOS 07/13/2010 Ot 785.0 TACHYCARDIA NOS 07/13/2010 Ot 785.2 CARDIAC MURMURS NEC 07/13/2010 Ot V10.3 HX OF BREAST MALIGNANCY 07/13/2010 Ot V15.51 PERSONAL HISTORY OF TRAUMATIC FRACTURE 07/13/2010 Ot V45.71 ACQUIRED ABSENCE OF BREAST AND NIPPLE 07/13/2010 Ot V58.64 LONG-TERM(CURRENT)USE OF NON-STEROIDAL A 07/13/2010 Ot V58.66 LONG-TERM (CURRENT) USE OF ASPIRIN 09/22/2010 Ot 112.0 09/22/2010 Ot 244.9 09/22/2010 Ot 250.80 09/22/2010 Ot 263.9 09/22/2010 Ot 272.4 09/22/2010 Ot 276.1 09/22/2010 Ot 276.8 09/22/2010 Ot 278.00 09/22/2010 Ot 285.9 09/22/2010 Ot 300.4 09/22/2010 Ot 365.9 09/22/2010 Ot 369.60 09/22/2010 Ot 403.90 09/22/2010 Ot 585.9 09/22/2010 Ot 707.07 09/22/2010 Ot 707.25 09/22/2010 Ot 715.36 09/22/2010 Ot 733.00 09/22/2010 Ot 780.52 09/22/2010 Ot 787.20 09/22/2010 Ot 787.91 09/22/2010 Ot E932.3 09/22/2010 Ot V57.1 09/22/2010 Ot V57.21 09/22/2010 Ot V57.3 09/22/2010 Ot V58.63 09/22/2010 Ot V58.67 09/22/2010 Ot V58.75 09/22/2010 Ot V58.89 09/22/2010 Ot V85.32 10/08/2010 MARYBETH WESTON MD 728.87 Muscle Weakness (generalized) 10/08/2010 728.87 Muscle Weakness (generalized) 10/08/2010 MARYBETH WESTON MD 728.87 Muscle Weakness (generalized) 10/08/2010 MARYBETH WESTON MD 728.87 Muscle Weakness (generalized) 10/08/2010 MARYBETH WESTON MD 728.87 Muscle Weakness (generalized) 10/08/2010 KATELYNN ACEVEDO APRN 728.87 Muscle Weakness (generalized) 10/08/2010 KATELYNN ACEVEDO APRN 728.87 Muscle Weakness (generalized) 10/08/2010 MARYBETH WESTON MD 728.87 Muscle Weakness (generalized) 10/08/2010 KATELYNN ACEVEDO APRN 728.87 Muscle Weakness (generalized) 10/08/2010 MARYBETH WESTON MD 728.87 Muscle Weakness (generalized) 10/22/2010 Ot 724.1 11/02/2010 MARYBETH WESTON MD 783.21 Loss Of Weight 11/02/2010 783.21 Loss Of Weight 11/02/2010 MARYBETH WESTON MD 783.21 Loss Of Weight 11/02/2010 MARYBETH WESTON MD 783.21 Loss Of Weight 11/02/2010 MARYBETH WESTON MD 783.21 Loss Of Weight 11/02/2010 KATELYNN ACEVEDO APRN 783.21 Loss Of Weight 11/02/2010 KATELYNN ACEVEDO APRN 783.21 Loss Of Weight 11/02/2010 MARYBETH WESTON MD 783.21 Loss Of Weight 11/02/2010 KATELYNN ACEVEDO APRN 783.21 Loss Of Weight 11/02/2010 MARYBETH WESTON MD3.21 Loss Of Weight 01/28/2012 MARYBETH WESTON MD 244.9 UNSPECIFIED ACQUIRED HYPOTHYROIDISM 01/28/2012 244.9 UNSPECIFIED ACQUIRED HYPOTHYROIDISM 01/28/2012 MARYBETH WESTON MD 244.9 UNSPECIFIED ACQUIRED HYPOTHYROIDISM 01/28/2012 MARYBETH WESTON MD 244.9 UNSPECIFIED ACQUIRED HYPOTHYROIDISM 01/28/2012 MARYBETH WESTON MD 244.9 UNSPECIFIED ACQUIRED HYPOTHYROIDISM 01/28/2012 KATELYNN ACEVEDO APRN 244.9 UNSPECIFIED ACQUIRED HYPOTHYROIDISM 01/28/2012 KATELYNN ACEVEDO APRN 244.9 UNSPECIFIED ACQUIRED HYPOTHYROIDISM 01/28/2012 MARYBETH WESTON MD 244.9 UNSPECIFIED ACQUIRED HYPOTHYROIDISM 01/28/2012 KATELYNN ACEVEDO APRN 244.9 UNSPECIFIED ACQUIRED HYPOTHYROIDISM 01/28/2012 MARYBETH WESTON MD 244.9 UNSPECIFIED ACQUIRED HYPOTHYROIDISM 06/22/2012 MARYBETH WESTON MD V04.81 FLU DX (3 YRS AND ABOVE, IM) 06/22/2012 V04.81 FLU DX (3 YRS AND ABOVE, IM) 06/22/2012 MARYBETH WESTON MD V04.81 FLU DX (3 YRS AND ABOVE, IM) 06/22/2012 MARYBETH WESTON MD V04.81 FLU DX (3 YRS AND ABOVE, IM) 06/22/2012 MARYBETH WESTON MD V04.81 FLU DX (3 YRS AND ABOVE, IM) 06/22/2012 KATELYNN ACEVEDO APRN V04.81 FLU DX (3 YRS AND ABOVE, IM) 06/22/2012 KATELYNN ACEVEDO APRN V04.81 FLU DX (3 YRS AND ABOVE, IM) 06/22/2012 MARYBETH WESTON MD V04.81 FLU DX (3 YRS AND ABOVE, IM) 06/22/2012 KATELYNN ACEVEDO APRN V04.81 FLU DX (3 YRS AND ABOVE, IM) 06/22/2012 MARYBETH WESTON MD V04.81 FLU DX (3 YRS AND ABOVE, IM) 10/22/2013 TERRELL STARKS MD Ot 244.9 HYPOTHYROIDISM NOS 10/22/2013 TERRELL STARKS MD Ot 250.00 DIAB ANIBAL WO COMPL, TYPE II OR UNSPEC TY 10/22/2013 TERRELL STARKS MD Ot 255.41 GLUCOCORTICOID DEFICIENCY 10/22/2013 TERRELL STARKS MD Ot 276.52 HYPOVOLEMIA 10/22/2013 TERRELL STARKS MD Ot 285.1 AC POSTHEMORRHAG ANEMIA 10/22/2013 TERRELL STARKS MD Ot 369.60 BLINDNESS, ONE EYE 10/22/2013 TERRELL STARKS MD Ot 458.9 HYPOTENSION NOS 10/22/2013 TERRELL STARKS MD Ot 536.9 STOMACH FUNCTION DIS NOS 10/22/2013 TERRELL STARKS MD Ot 599.0 URIN TRACT INFECTION NOS 10/22/2013 TERRELL STARKS MD Ot 820.22 SUBTROCHANTERIC FX-CLOSE 10/22/2013 TERRELL STARKS MD Ot E000.8 OTHER EXTERNAL CAUSE STATUS 10/22/2013 TERRELL STARKS MD Ot E849.0 ACCIDENT IN HOME 10/22/2013 TERRELL STARKS MD Ot E885.9 FALL FROM SLIPPING, TRIPPING, OR STUMBLI 10/22/2013 TERRELL STARKS MD Ot V58.65 LONG-TERM(CURRENT)USE OF STEROIDS 11/03/2013 KATELYNN ACEVEDO APRN S 255.41 GLUCOCORTICOID DEFICIENCY 11/03/2013 KATELYNN ACEVEDO APRN S 782.3 EDEMA 11/03/2013 KATELYNN ACEVEDO APRN S 820.8 FRACTURE OF UNSPECIFIED PART OF NECK OF FEMUR CLOSED 11/03/2013 KATELYNN ACEVEDO APRN S 255.41 GLUCOCORTICOID DEFICIENCY 11/03/2013 KATELYNN ACEVEDO APRN S 782.3 EDEMA 11/03/2013 KATELYNN ACEVEDO APRN S 820.8 FRACTURE OF UNSPECIFIED PART OF NECK OF FEMUR CLOSED 11/03/2013 MARYBETH WESTON MD 255.41 GLUCOCORTICOID DEFICIENCY 11/03/2013 MARYBETH WESTON MD 782.3 EDEMA 11/03/2013 MARYBETH WESTON MD 820.8 FRACTURE OF UNSPECIFIED PART OF NECK OF FEMUR CLOSED 11/03/2013 KATELYNN ACEVEDO APRN S 255.41 GLUCOCORTICOID DEFICIENCY 11/03/2013 KATELYNN ACEVEDO APRN S 782.3 EDEMA 11/03/2013 KATELYNN ACEVEDO APRN 820.8 FRACTURE OF UNSPECIFIED PART OF NECK OF FEMUR CLOSED 11/03/2013 MARYBETH WESTON MD 255.41 GLUCOCORTICOID DEFICIENCY 11/03/2013 MARYBETH WESTON MD 782.3 EDEMA 11/03/2013 MARYBETH WESTON MD 820.8 FRACTURE OF UNSPECIFIED PART OF NECK OF FEMUR CLOSED 11/24/2013 MARYBETH WESTON MD Ot 244.9 HYPOTHYROIDISM NOS 11/24/2013 MARYBETH WESTON MD Ot 250.00 DIAB ANIBAL WO COMPL, TYPE II OR UNSPEC TY 11/24/2013 MARYBETH WESTON MD, Ot 255.41 GLUCOCORTICOID DEFICIENCY 11/24/2013 MARYBETH WESTON MD Ot 272.4 HYPERLIPIDEMIA NEC/NOS 11/24/2013 MARYBETH WESTON MD Ot 276.51 DEHYDRATION 11/24/2013 MARYBETH WESTON MD Ot 300.00 ANXIETY STATE NOS 11/24/2013 MARYBETH WESTON MD Ot 305.1 TOBACCO USE DISORDER 11/24/2013 MARYBETH WESTON MD Ot 311 DEPRESSIVE DISORDER NEC 11/24/2013 MARYBETH WESTON MD Ot 365.9 GLAUCOMA NOS 11/24/2013 MARYBETH WESTON MD Ot 369.60 BLINDNESS, ONE EYE 11/24/2013 MARYBETH WESTON MD Ot 401.9 HYPERTENSION NOS 11/24/2013 MARYBETH WESTON MD Ot 427.89 CARDIAC DYSRHYTHMIAS NEC 11/24/2013 MARYBETH WESTON MD Ot 458.9 HYPOTENSION NOS 11/24/2013 MARYBETH WESTON MD Ot 536.2 PERSISTENT VOMITING 11/24/2013 MARYBETH WESTON MD Ot 593.9 RENAL URETERAL DIS NOS 11/24/2013 MARYBETH WESTON MD Ot 715.90 OSTEOARTHROS NOS-UNSPEC 11/24/2013 MARYBETH WESTON MD Ot 787.91 DIARRHEA 11/24/2013 MARYEBTH WESTON MD Ot V10.3 HX OF BREAST MALIGNANCY 11/24/2013 MARYBETH WESTON MD Ot V12.71 PERSONAL HISTORY OF PEPTIC ULCER DISEASE 11/24/2013 MARYBETH WESTON MD Ot V45.71 ACQUIRED ABSENCE OF BREAST AND NIPPLE 11/24/2013 MARYBETH WESTON MD Ot V58.65 LONG-TERM(CURRENT)USE OF STEROIDS 07/22/2014 Ot V10.3 07/22/2014 Ot 253.9 07/22/2014 Ot 368.9 07/22/2014 Ot V81.5 07/22/2014 LUZ MARINA ARCINIEGA, GINNY Greene Ot 244.9 07/22/2014 LUZ MARINA ARCINIEGA, GINNY Greene Ot 250.00 07/22/2014 LUZ MARINA ARCINIEGA, GINNY Greene Ot 255.41 07/22/2014 GINNY RAZA MD Ot 719.45 07/22/2014 LUZ MARINA ARCINIEGA, GINNY Greene Ot 729.5 07/22/2014 LUZ MARINA ARCINIEGA, GINNY Greene Ot 729.81 07/22/2014 LUZ MARINA ARCINIEGA, GINNY Greene Ot 782.3 07/22/2014 GINNY RAZA MD Ot 820.8 07/16/2015 GENEVIEVE ROMAN Ot M12.9 ARTHROPATHY, UNSPECIFIED 07/16/2015 GENEVIEVE ROMAN Ot M19.012 PRIMARY OSTEOARTHRITIS, LEFT SHOULDER 07/16/2015 GENEVIEVE ROMAN Ot M43.07 SPONDYLOLYSIS, LUMBOSACRAL REGION 07/16/2015 GENEVIEVE ROMAN Ot S33.5XXA SPRAIN OF LIGAMENTS OF LUMBAR SPINE, INI 07/16/2015 GENEVIEVE ROMAN Ot S40.012A CONTUSION OF LEFT SHOULDER, INITIAL ENCO 07/16/2015 GENEVIEVE ROMAN Ot S70.01XA CONTUSION OF RIGHT HIP, INITIAL ENCOUNTE 07/16/2015 GENEVIEVE ROMAN Ot W19.XXXA UNSPECIFIED FALL, INITIAL ENCOUNTER 07/16/2015 GENEVIEVE ROMAN Ot Y99.8 OTHER EXTERNAL CAUSE STATUS 07/19/2015 Ot 253.9 07/19/2015 Ot 368.9 07/19/2015 Ot V81.5 07/19/2015 GINNY RAZA MD Ot 244.9 07/19/2015 LUZ MARINA ARCINIEGA, GINNY Greene Ot 250.00 07/19/2015 GINNY RAZA MD Ot 255.41 07/19/2015 LUZ MARINA ARCINIEGA, GINNY Greene Ot 719.45 07/19/2015 GINNY RAZA MD Ot 729.5 07/19/2015 GINNY RAZA MD Ot 729.81 07/19/2015 LUZ MARINA ARCINIEGA, GINNY Greene Ot 782.3 07/19/2015 LUZ MARINA ARCINIEGA, GNINY Greene Ot 820.8 07/20/2015 CORREIA STEVIE WHEELERA Padilla Ot E03.9 HYPOTHYROIDISM, UNSPECIFIED 07/20/2015 CORREIA DO CHIOMA K Ot E11.9 TYPE 2 DIABETES MELLITUS WITHOUT COMPLIC 07/20/2015 CORREIA DO CHIOMA K Ot E27.40 UNSPECIFIED ADRENOCORTICAL INSUFFICIENCY 07/20/2015 CORREIA DO CHIOMA K Ot F17.210 NICOTINE DEPENDENCE, CIGARETTES, UNCOMPL 07/20/2015 CORREIA DO CHIOMA K Ot I95.9 HYPOTENSION, UNSPECIFIED 07/20/2015 CORREIA DO CHIOMA K Ot N39.0 URINARY TRACT INFECTION, SITE NOT SPECIF 07/20/2015 MASOOD DOSTEVIEA K Ot R00.1 BRADYCARDIA, UNSPECIFIED 07/20/2015 CORREIA DO CHIOMA K Ot R53.1 WEAKNESS 07/20/2015 CORREIA DO CHIOMA K Ot S01.01XA LACERATION WITHOUT FOREIGN BODY OF SCALP 07/20/2015 STEVIE CORREIA DOA K Ot W08.XXXA FALL FROM OTHER FURNITURE, INITIAL ENCOU 07/20/2015 STEVIE CORREIA DOA K Ot Z23 ENCOUNTER FOR IMMUNIZATION 07/20/2015 CHIOMA CORREIA DO Ot Z79.52 WELT DRAWER (CURRENT) USE OF SYSTEMIC STER 07/20/2015 STEVIE CORREIA DOA K Ot Z91.81 HISTORY OF FALLING 07/20/2015 STEVIE CORREIA DOA K Ot E03.9 07/20/2015 CORREIA DOSTEVIEA Padilla Ot E11.9 07/20/2015 CORREIA DOSTEVIEA K Ot E27.40 07/20/2015 CORREIA DO CHIOMA K Ot F17.210 07/20/2015 CORREIA DO CHIOMA K Ot I95.9 07/20/2015 CORREIA DOSTEVIEA K Ot N39.0 07/20/2015 CORREIA DOSTEVIEA K Ot R00.1 07/20/2015 CORREIA DO CHIOMA K Ot R53.1 07/20/2015 CORREIA DO CHIOMA K Ot S01.01XA 07/20/2015 CORREIA DO CHIOMA K Ot W08.XXXA 07/20/2015 CORREIA DO CHIOMA K Ot Z23 07/20/2015 CHIOMA CORREIA DO Ot Z79.52 07/20/2015 CHIOMA CORREIA DO Ot Z91.81 07/31/2015 ELAINE ARCINIEGA, LUCINA E Ot B96.20 07/31/2015 ELAINE ARCINIEGA LUCINA E Ot E03.9 07/31/2015 LUCINA HENRY MD E Ot E11.9 07/31/2015 ELAINE ARCINIEGA LUCINA E Ot E27.40 07/31/2015 ELAINE ARCINIEGA LUCINA E Ot E78.5 07/31/2015 ELAINE ARCINIEGA LUCINA E Ot F17.210 07/31/2015 ELAINE ARCINIEGA LUCINA E Ot F32.9 07/31/2015 ELAINE ARCINIEGA LUCINA E Ot F41.9 07/31/2015 ELAINE ARCINIEGA LUCINA E Ot G72.0 07/31/2015 ELAINE ARCINIEGA LUCINA E Ot H40.9 07/31/2015 ELAINE ARCINIEGA LUCINA E Ot H54.42 07/31/2015 ELAINE ARCINIEGA LUCINA E Ot I10 07/31/2015 ELAINE ARCINIEGA LUCINA E Ot M47.896 07/31/2015 ELAINE ARCINIEGA LUCINA E Ot N39.0 07/31/2015 ELAINE ARCINIEGA LUCINA E Ot S01.01XD 07/31/2015 ELAINE ARCINIEGA LUCINA E Ot T38.0X5A 08/04/2015 ELAINE ARCINIEGA LUCINA E Ot B96.20 UNSP ESCHERICHIA COLI THE CAUSE OF DI 08/04/2015 LUCINA HENRY MD E Ot E03.9 HYPOTHYROIDISM, UNSPECIFIED 08/04/2015 LUCINA HENRY MD E Ot E11.9 TYPE 2 DIABETES MELLITUS WITHOUT COMPLIC 08/04/2015 ASHLY HENRY MDIC E Ot E27.40 UNSPECIFIED ADRENOCORTICAL INSUFFICIENCY 08/04/2015 LUCINA HENRY MD E Ot E78.5 HYPERLIPIDEMIA, UNSPECIFIED 08/04/2015 ELAINE ARCINIEGA LUCINA E Ot F17.210 NICOTINE DEPENDENCE, CIGARETTES, UNCOMPL 08/04/2015 ELAINE ARCINIEGA LUCINA E Ot F32.9 MAJOR DEPRESSIVE DISORDER, SINGLE EPISOD 08/04/2015 ELAINE ARCINIEGA LUCINA E Ot F41.9 ANXIETY DISORDER, UNSPECIFIED 08/04/2015 ELAINE ARCINIEGA LUCINA E Ot G72.0 DRUG-INDUCED MYOPATHY 08/04/2015 ELAINE ARCINIEGA LUCINA E Ot H40.9 UNSPECIFIED GLAUCOMA 08/04/2015 LUCINA HENRY MD Ot 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, LEFT EYE, NORMAL VISION RIGHT 08/04/2015 LUCINA HENRY MD Ot I10 ESSENTIAL (PRIMARY) HYPERTENSION 08/04/2015 LUCINA HENRY MD Ot M47.896 OTHER SPONDYLOSIS, LUMBAR REGION 08/04/2015 LUCINA HENRY MD Ot N39.0 URINARY TRACT INFECTION, SITE NOT SPECIF 08/04/2015 LUCINA HENRY MD Ot R21 RASH AND OTHER NONSPECIFIC SKIN ERUPTION 08/04/2015 LUCINA HENRY MD Ot S01.01XD LACERATION WITHOUT FOREIGN BODY OF SCALP 08/04/2015 LUCINA HENRY MD Ot T38.0X5A ADVERSE EFFECT OF GLUCOCORT/SYNTH ANALOG 10/13/2015 AGNES RITCHIE MD Ot E03.9 HYPOTHYROIDISM, UNSPECIFIED 10/13/2015 AGNES RITCHIE MD Ot E11.9 TYPE 2 DIABETES MELLITUS WITHOUT COMPLIC 10/13/2015 AGNES RITCHIE MD Ot E27.40 UNSPECIFIED ADRENOCORTICAL INSUFFICIENCY 10/13/2015 AGNES RITCHIE MD Ot E87.0 HYPEROSMOLALITY AND HYPERNATREMIA 10/13/2015 AGNES RITCHIE MD Ot E87.6 HYPOKALEMIA 10/13/2015 AGNES RITCHIE MD Ot F17.210 NICOTINE DEPENDENCE, CIGARETTES, UNCOMPL 10/13/2015 AGNES RITCHIE MD Ot I10 ESSENTIAL (PRIMARY) HYPERTENSION 10/13/2015 AGNES RITCHIE MD Ot M80.88XA OTH OSTEOPOR W CURRENT PATH FRACTURE, VE 10/13/2015 AGNES RITCHIE MD, Ot N39.0 URINARY TRACT INFECTION, SITE NOT SPECIF 10/13/2015 AGNES RITCHIE MD Ot T38.0X5A ADVERSE EFFECT OF GLUCOCORT/SYNTH ANALOG 10/13/2015 AGNES RITCHIE MD Ot Z91.81 HISTORY OF FALLING 12/26/2015 DILLON MARVIN MD Ot A41.9 SEPSIS, UNSPECIFIED ORGANISM 12/26/2015 DILLON MARVIN MD Ot E03.9 HYPOTHYROIDISM, UNSPECIFIED 12/26/2015 DILLON MARVIN MD Ot E11.9 TYPE 2 DIABETES MELLITUS WITHOUT COMPLIC 12/26/2015 DILLON MARVIN MD Ot E27.49 OTHER ADRENOCORTICAL INSUFFICIENCY 12/26/2015 DILLON MARVIN MD Ot E78.5 HYPERLIPIDEMIA, UNSPECIFIED 12/26/2015 DILLON MARVIN MD Ot E86.0 DEHYDRATION 12/26/2015 DILLON MARVIN MD, Ot F32.9 MAJOR DEPRESSIVE DISORDER, SINGLE EPISOD 12/26/2015 DILLON MARVIN MD Ot F41.9 ANXIETY DISORDER, UNSPECIFIED 12/26/2015 DILLON MARVIN MD Ot H40.9 UNSPECIFIED GLAUCOMA 12/26/2015 DILLON MARVIN MD, Ot I10 ESSENTIAL (PRIMARY) HYPERTENSION 12/26/2015 DILLON MARVIN MD Ot K21.9 GASTRO-ESOPHAGEAL REFLUX DISEASE WITHOUT 12/26/2015 DILLON MARVIN MD Ot K52.9 NONINFECTIVE GASTROENTERITIS AND COLITIS 12/26/2015 DILLON MARVIN MD Ot R13.10 DYSPHAGIA, UNSPECIFIED 12/26/2015 DILLON MARVIN MD Ot R65.21 SEVERE SEPSIS WITH SEPTIC SHOCK 12/26/2015 DILLON MARVIN MD Ot Z87.891 PERSONAL HISTORY OF NICOTINE DEPENDENCE 12/26/2015 DILLON MARVIN MD Ot Z91.81 HISTORY OF FALLING 12/26/2015 DILLON MARVIN MD Ot A41.9 SEPSIS, UNSPECIFIED ORGANISM 12/26/2015 DILLON MARVIN MD Ot E03.9 HYPOTHYROIDISM, UNSPECIFIED 12/26/2015 DILLON MARVIN MD Ot E11.9 TYPE 2 DIABETES MELLITUS WITHOUT COMPLIC 12/26/2015 DILLON MARVIN MD Ot E27.49 OTHER ADRENOCORTICAL INSUFFICIENCY 12/26/2015 DILLON MARVIN MD Ot E78.5 HYPERLIPIDEMIA, UNSPECIFIED 12/26/2015 DILLON MARIVN MD Ot E86.0 DEHYDRATION 12/26/2015 DILLON MARVIN MD, Ot F32.9 MAJOR DEPRESSIVE DISORDER, SINGLE EPISOD 12/26/2015 DILLON MARVIN MD Ot F41.9 ANXIETY DISORDER, UNSPECIFIED 12/26/2015 DILLON MARVIN MD Ot H40.9 UNSPECIFIED GLAUCOMA 12/26/2015 DILLON MARVIN MD Ot I10 ESSENTIAL (PRIMARY) HYPERTENSION 12/26/2015 DILLON MARVIN MD Ot K21.9 GASTRO-ESOPHAGEAL REFLUX DISEASE WITHOUT 12/26/2015 DILLON MARVIN MD Ot K52.9 NONINFECTIVE GASTROENTERITIS AND COLITIS 12/26/2015 DILLON MARVIN MD Ot R13.10 DYSPHAGIA, UNSPECIFIED 12/26/2015 DILLON MARVIN MD Ot R65.21 SEVERE SEPSIS WITH SEPTIC SHOCK 12/26/2015 DILLON MARVIN MD Ot Z87.891 PERSONAL HISTORY OF NICOTINE DEPENDENCE 12/26/2015 DILLON MARVIN MD Ot Z91.81 HISTORY OF FALLING 05/20/2016 AGNES RITCHIE MD Ot A41.9 SEPSIS, UNSPECIFIED ORGANISM 05/20/2016 AGNES RITCHIE MD Ot E03.9 HYPOTHYROIDISM, UNSPECIFIED 05/20/2016 AGNES RITCHIE MD Ot E11.65 TYPE 2 DIABETES MELLITUS WITH HYPERGLYCE 05/20/2016 AGNES RITCHIE MD Ot E27.40 UNSPECIFIED ADRENOCORTICAL INSUFFICIENCY 05/20/2016 AGNES RITCHIE MD Ot E86.0 DEHYDRATION 05/20/2016 AGNES RITCHIE MD Ot E87.1 HYPO-OSMOLALITY AND HYPONATREMIA 05/20/2016 AGNES RITCHIE MD Ot E87.6 HYPOKALEMIA 05/20/2016 AGNES RITCHIE MD Ot F03.90 UNSPECIFIED DEMENTIA WITHOUT BEHAVIORAL 05/20/2016 AGNES RITCHIE MD Ot H40.9 UNSPECIFIED GLAUCOMA 05/20/2016 AGNES RITCHIE MD Ot I10 ESSENTIAL (PRIMARY) HYPERTENSION 05/20/2016 AGNES RITCHIE MD Ot J90 PLEURAL EFFUSION, NOT ELSEWHERE CLASSIFI 05/20/2016 AGNES RITCHIE MD Ot M81.8 OTHER OSTEOPOROSIS WITHOUT CURRENT PATHO 05/20/2016 AGNES RITCHIE MD Ot N17.9 ACUTE KIDNEY FAILURE, UNSPECIFIED 05/20/2016 AGNES RITCHIE MD Ot N30.00 ACUTE CYSTITIS WITHOUT HEMATURIA 05/20/2016 AGNES RITCHIE MD Ot R65.21 SEVERE SEPSIS WITH SEPTIC SHOCK 05/20/2016 AGNES RITCHIE MD Ot Z66 DO NOT RESUSCITATE 05/20/2016 AGNES RITCHIE MD Ot Z79.52 WELT DRAWER (CURRENT) USE OF SYSTEMIC STER 05/20/2016 AGNES RITCHIE MD, Ot Z86.39 PERSONAL HISTORY OF ENDO, NUTRITIONAL AN 05/20/2016 AGNES RITCHIE MD Ot A41.9 SEPSIS, UNSPECIFIED ORGANISM 05/20/2016 AGNES RITCHIE MD Ot E03.9 HYPOTHYROIDISM, UNSPECIFIED 05/20/2016 AGNES RITCHIE MD Ot E11.65 TYPE 2 DIABETES MELLITUS WITH HYPERGLYCE 05/20/2016 AGNES RITCHIE MD Ot E27.40 UNSPECIFIED ADRENOCORTICAL INSUFFICIENCY 05/20/2016 AGNES RITCHIE MD Ot E86.0 DEHYDRATION 05/20/2016 AGNES RITCHIE MD, Ot E87.1 HYPO-OSMOLALITY AND HYPONATREMIA 05/20/2016 AGNES RITCHIE MD Ot E87.6 HYPOKALEMIA 05/20/2016 AGNES RITCHIE MD Ot F03.90 UNSPECIFIED DEMENTIA WITHOUT BEHAVIORAL 05/20/2016 AGNES RITCHIE MD Ot H40.9 UNSPECIFIED GLAUCOMA 05/20/2016 AGNES RITCHIE MD Ot I10 ESSENTIAL (PRIMARY) HYPERTENSION 05/20/2016 AGNES RITCHIE MD Ot J90 PLEURAL EFFUSION, NOT ELSEWHERE CLASSIFI 05/20/2016 AGNES RITCHIE MD Ot M81.8 OTHER OSTEOPOROSIS WITHOUT CURRENT PATHO 05/20/2016 AGNES RITCHIE MD Ot N17.9 ACUTE KIDNEY FAILURE, UNSPECIFIED 05/20/2016 AGNES RITCHIE MD Ot N30.00 ACUTE CYSTITIS WITHOUT HEMATURIA 05/20/2016 AGNES RITCHIE MD Ot R65.21 SEVERE SEPSIS WITH SEPTIC SHOCK 05/20/2016 AGNES RITCHIE MD Ot Z66 DO NOT RESUSCITATE 05/20/2016 AGNES RITCHIE MD Ot Z79.52 RESIDENTIAL (CURRENT) USE OF SYSTEMIC STER 05/20/2016 AGNES RITCHIE MD Ot Z86.39 PERSONAL HISTORY OF ENDO, NUTRITIONAL AN 12/03/2016 GINNY RAZA MD Ot 244.9 HYPOTHYROIDISM NOS 12/03/2016 GINNY RAZA MD Ot 250.00 DIAB ANIBAL WO COMPL, TYPE II OR UNSPEC TY 12/03/2016 GINNY RAZA MD Ot 255.41 GLUCOCORTICOID DEFICIENCY 12/03/2016 GINNY RAZA MD Ot 719.45 JOINT PAIN-PELVIS 12/03/2016 GINNY RAZA MD Ot 729.5 PAIN IN LIMB 12/03/2016 GINNY RAZA MD Ot 729.81 SWELLING OF LIMB 12/03/2016 GINNY RAZA MD Ot 782.3 EDEMA 12/03/2016 GINNY RAZA MD Ot 820.8 FX NECK OF FEMUR NOS-CL 12/05/2016 CHIOMA CORREIA DO Ot D62 ACUTE POSTHEMORRHAGIC ANEMIA 12/05/2016 CHIOMA CORREIA DO Ot E03.9 HYPOTHYROIDISM, UNSPECIFIED 12/05/2016 CHIOMA CORREIA DO Ot E11.9 TYPE 2 DIABETES MELLITUS WITHOUT COMPLIC 12/05/2016 CHIOMA CORREIA DO Ot E27.40 UNSPECIFIED ADRENOCORTICAL INSUFFICIENCY 12/05/2016 CHIOMA CORREIA DO Ot E78.5 HYPERLIPIDEMIA, UNSPECIFIED 12/05/2016 CHIOMA CORREIA DO Ot E83.39 OTHER DISORDERS OF PHOSPHORUS METABOLISM 12/05/2016 CHIMOA CORREIA DO Ot E87.6 HYPOKALEMIA 12/05/2016 CHIOMA CORREIA DO Ot F03.90 UNSPECIFIED DEMENTIA WITHOUT BEHAVIORAL 12/05/2016 CHIOMA CORREIA DO Ot F41.9 ANXIETY DISORDER, UNSPECIFIED 12/05/2016 CHIOMA CORREIA DO Ot I10 ESSENTIAL (PRIMARY) HYPERTENSION 12/05/2016 CHIOMA CORREIA DO Ot I95.1 ORTHOSTATIC HYPOTENSION 12/05/2016 CHIOMA CORREIA DO Ot K21.9 GASTRO-ESOPHAGEAL REFLUX DISEASE WITHOUT 12/05/2016 CHIOMA CORREIA DO Ot M81.8 OTHER OSTEOPOROSIS WITHOUT CURRENT PATHO 12/05/2016 CHIOMA CORREIA DO Ot R53.81 OTHER MALAISE 12/05/2016 CHIOMA CORREIA DO Ot S00.03XA CONTUSION OF SCALP, INITIAL ENCOUNTER 12/05/2016 CHIOMA CORREIA DO Ot S72.142A DISPLACED INTERTROCHANTERIC FRACTURE OF 12/05/2016 CHIOMA CORREIA DO Ot S72.22XA DISPLACED SUBTROCHANTERIC FRACTURE OF LE 12/05/2016 CHIOMA CORREIA DO Ot T38.0X5A ADVERSE EFFECT OF GLUCOCORT/SYNTH ANALOG 12/05/2016 CHIOMA CORREIA DO Ot W19.XXXA UNSPECIFIED FALL, INITIAL ENCOUNTER 12/05/2016 CHIOMA CORREIA DO Ot Y92.[address] IN CUSTODIAL PLACE 12/05/2016 CHIOMA CORREIA DO Ot Y99.8 OTHER EXTERNAL CAUSE STATUS 12/05/2016 CHIOMA CORREIA DO Ot Z66 DO NOT RESUSCITATE Procedures Code Description Performed By Performed On 45.16 ESOPHAGOGASTRODUODENOSCOPY [EGD] W/CLOSE 07/05/2010 38.93 VENOUS CATHETERIZATION NEC 07/06/2010 43.7 PART GASTREC W JEJ ANAST 07/06/2010 44.41 SUT GASTRIC ULCER SITE 07/06/2010 96.72 CONTINUOUS INVASIVE MECHANICAL VENTILATI 07/06/2010 68178 ROUTINE VENIPUNCTURE 12/14/2012 46884 A1C (IN-HOUSE) 75975 CMP 12/14/2012 [id number] GFR CALC (RESULT ONLY) 12/14/2012 36624 UA LONG DIP 12/14 68783 MICRO ALBUMIN-IN HOUSE 12/14/2012 67344 TSH 12/15/2012 04670 ROUTINE VENIPUNCTURE 06/29/2013 71202 A1C (IN-HOUSE) G0008 FLU ADMINISTRATION (MEDICARE ONLY) 06/29/2013 12125 TSH 06/29/2013 78.55 INTERNAL FIXATION-FEMUR 10/17/2013 14586 VENOUS DOPPLER BILATERAL 11/03/2013 31686 OXIMETRY 2013 Physical Occupational Therapy 11/03/2013 07857 ROUTINE VENIPUNCTURE 05/26/2014 50269 A1C (IN-HOUSE) [id number] GFR CALC (RESULT ONLY) 05/26/2014 40621 BMP 05/26/2014 19372 TSH 05/26/2014 [id number] REPAIR SCALP SKIN, EXTERNAL APPROACH 07/17/2015 [id number] REPOSITION THORACIC VERTEBRA, PERCUTANEO 10/12/2015 [id number] SUPPLEMENT THORACIC VERTEBRA WITH SYNTH 10/12/2015 [id number] EXCISION OF LUMBAR VERTEBRA, PERCUTANEOU 10/12/2015 [id number] REPOSITION LUMBAR VERTEBRA, PERCUTANEOUS 10/12/2015 [id number] SUPPLEMENT LUMBAR VERTEBRA WITH SYNTH ALARCON 10/12/2015 [id number] INSERTION OF INFUSION DEV INTO SUP VENA 05/17/2016 [id number] REPOSITION LEFT UPPER FEMUR WITH INTRAME 12/03/2016 Results Test Result Range Complete blood count (CBC) with automated white blood cell (WBC) differential - 05/17/16 14:58 Blood leukocytes automated count (number/volume) 22.8 10*3/ uL 4.3-11.0 Blood erythrocytes automated count (number/volume) 5.68 10*6 /uL 4.35-5.85 Venous blood hemoglobin measurement (mass/volume) 16.6 g/dL 11.5-16.0 Blood hematocrit (volume fraction) 49 % 35-52 Automated erythrocyte mean corpuscular volume 86 [foz_us] 80-99 Automated erythrocyte mean corpuscular hemoglobin (mass per erythrocyte) 29 pg 25-34 Automated erythrocyte mean corpuscular hemoglobin concentration measurement ( mass/volume) 34 g/dL 32-36 Automated erythrocyte distribution width ratio 14.8 % 10.0-14.5 Automated blood platelet count (count/volume) 225 10*3/uL 130-400 Automated blood platelet mean volume measurement 10.8 [foz_ us] 7.4-10.4 Automated blood neutrophils/100 leukocytes 87 % 42-75 Automated blood lymphocytes/100 leukocytes 8 % 12-44 Blood monocytes/100 leukocytes 5 % 0-12 Automated blood eosinophils/100 leukocytes 0 % 0-10 Automated blood basophils/100 leukocytes 0 % 0-10 Blood neutrophils automated count (number/volume) 19.8 10*3 1.8-7.8 Blood lymphocytes automated count (number/volume) 1.9 10*3 1.0-4.0 Blood monocytes automated count (number/volume) 1.0 10*3 0.0-1.0 Automated eosinophil count 0.0 10*3/uL 0.0-0.3 Automated blood basophil count (count/volume) 0.0 10*3/uL 0.0-0.1 Blood manual differential performed detection - 05/17/16 14:58 Blood monocytes/100 leukocytes 4 % NRG Manual blood segmented neutrophils/100 leukocytes 81 % NRG Blood band neutrophils/100 leukocytes 8 % NRG Manual blood lymphocytes/100 leukocytes 8 % NRG Manual eosinophils/100 leukocytes in nose 0 % NRG Manual blood basophils/100 leukocytes 0 % NRG Blood erythrocyte morphology finding identification NORMAL NR Comprehensive metabolic panel - 05/17/16 14:58 Serum or plasma sodium measurement (moles/volume) 131 mmol/ L 135-145 Serum or plasma potassium measurement (moles/volume) 4.8 mmol/L 3.6-5.0 Serum or plasma chloride measurement (moles/volume) 95 mmol/ L 98-107 Carbon dioxide 22 mmol/L 21-32 Serum or plasma anion gap determination (moles/volume) 14 mmol/L 5-14 Serum or plasma urea nitrogen measurement (mass/volume) 18 mg/dL 7-18 Serum or plasma creatinine measurement (mass/volume) 1.69 mg /dL 0.60-1.30 Serum or plasma urea nitrogen/creatinine mass ratio 11 NRG Serum or plasma creatinine measurement with calculation of estimated glomerular filtration rate 30 NRG Serum or plasma glucose measurement (mass/volume) 383 mg/dL 70-105 Serum or plasma calcium measurement (mass/volume) 8.8 mg/dL 8.5-10.1 Serum or plasma total bilirubin measurement (mass/volume) 0.9 mg/dL 0.1-1.0 Serum or plasma alkaline phosphatase measurement (enzymatic activity/volume) 140 U/L 40-136 Serum or plasma aspartate aminotransferase measurement (enzymatic activity/ volume) 58 U/L 5-34 Serum or plasma alanine aminotransferase measurement (enzymatic activity/volume ) 38 U/L 0-55 Serum or plasma protein measurement (mass/volume) 6.5 g/dL 6.4-8.2 Serum or plasma albumin measurement (mass/volume) 3.9 g/dL 3.2-4.5 Serum or plasma troponin i.cardiac measurement (mass/volume) - 05/17/16 14:58 Serum or plasma troponin i.cardiac measurement (mass/volume) 0.79 ng/mL <0.30 Bacterial blood culture - 05/17/16 14:58 Bacterial blood culture NG NRG Complete urinalysis with reflex to culture - 05/17/16 15:00 Urine color determination YELLOW NRG Urine clarity determination SLIGHTLY CLOUDY NRG Urine pH measurement by test strip 6 5- 9 Specific gravity of urine by test strip 1.010 1.016-1.022 Urine protein assay by test strip, semi-quantitative 3+ NEGATIVE Urine glucose detection by automated test strip 2+ NEGATIVE Erythrocytes detection in urine sediment by light microscopy 2+ NEGATIVE Urine ketones detection by automated test strip NEGATIVE NEGATIVE Urine nitrite detection by test strip NEGATIVE NEGATIVE Urine total bilirubin detection by test strip 1+ NEGATIVE Urine urobilinogen measurement by automated test strip (mass/volume) 1 mg/dL NORMAL Urine leukocyte esterase detection by dipstick 2+ NEGATIVE Automated urine sediment erythrocyte count by microscopy (number/high power field) NONE NRG Automated urine sediment leukocyte count by microscopy (number/high power field ) [HPF] NRG Bacteria detection in urine sediment by light microscopy LARGE NRG Squamous epithelial cells detection in urine sediment by light microscopy 0-2 NRG Crystals detection in urine sediment by light microscopy NONE NRG Casts detection in urine sediment by light microscopy NONE NRG Mucus detection in urine sediment by light microscopy NEGATIVE NRG Complete urinalysis with reflex to culture YES NRG Amorphous sediment detection in urine sediment by light microscopy MOD MAMI URATES NRG Bacterial urine culture - 05/17/16 15:00 Bacterial urine culture NG NRG Blood lactic acid measurement (moles/volume) - 05/17/16 15:22 Blood lactic acid measurement (moles/volume) 4.7 mmol/L 0.5-2.0 Bacterial blood culture - 05/17/16 15:22 Bacterial blood culture NG NRG Serum or plasma lactate measurement (moles/volume) - 05/17/16 17:17 Serum or plasma lactate measurement (moles/volume) 3.1 mmol/ L 0.5-2.0 Methicillin resistant Staphylococcus aureus (MRSA) screening culture - 19:35 Methicillin resistant Staphylococcus aureus (MRSA) screening culture NEG NRG Serum or plasma potassium measurement (moles/volume) - 05/17/16 21:52 Serum or plasma potassium measurement (moles/volume) 4.5 mmol/L 3.6-5.0 Magnesium - 05/17/16 21:52 Magnesium 2.3 mg/dL 1.8-2.4 Serum or plasma troponin i.cardiac measurement (mass/volume) - 05/17/16 21:52 Serum or plasma troponin i.cardiac measurement (mass/volume) 1.34 ng/mL <0.30 Complete blood count (CBC) with automated white blood cell (WBC) differential - 05/18/16 04:00 Blood leukocytes automated count (number/volume) 17.5 10*3/ uL 4.3-11.0 Blood erythrocytes automated count (number/volume) 4.71 10*6 /uL 4.35-5.85 Venous blood hemoglobin measurement (mass/volume) 13.9 g/dL 11.5-16.0 Blood hematocrit (volume fraction) 41 % 35-52 Automated erythrocyte mean corpuscular volume 87 [foz_us] 80-99 Automated erythrocyte mean corpuscular hemoglobin (mass per erythrocyte) 30 pg 25-34 Automated erythrocyte mean corpuscular hemoglobin concentration measurement ( mass/volume) 34 g/dL 32-36 Automated erythrocyte distribution width ratio 14.7 % 10.0-14.5 Automated blood platelet count (count/volume) 162 10*3/uL 130-400 Automated blood platelet mean volume measurement 10.6 [foz_ us] 7.4-10.4 Automated blood neutrophils/100 leukocytes 93 % 42-75 Automated blood lymphocytes/100 leukocytes 4 % 12-44 Blood monocytes/100 leukocytes 3 % 0-12 Automated blood eosinophils/100 leukocytes 0 % 0-10 Automated blood basophils/100 leukocytes 0 % 0-10 Blood neutrophils automated count (number/volume) 16.2 10*3 1.8-7.8 Blood lymphocytes automated count (number/volume) 0.7 10*3 1.0-4.0 Blood monocytes automated count (number/volume) 0.5 10*3 0.0-1.0 Automated eosinophil count 0.0 10*3/uL 0.0-0.3 Automated blood basophil count (count/volume) 0.0 10*3/uL 0.0-0.1 Comprehensive metabolic panel - 05/18/16 04:00 Serum or plasma sodium measurement (moles/volume) 133 mmol/ L 135-145 Serum or plasma potassium measurement (moles/volume) 4.3 mmol/L 3.6-5.0 Serum or plasma chloride measurement (moles/volume) 107 mmol /L 98-107 Carbon dioxide 16 mmol/L 21-32 Serum or plasma anion gap determination (moles/volume) 10 mmol/L 5-14 Serum or plasma urea nitrogen measurement (mass/volume) 14 mg/dL 7-18 Serum or plasma creatinine measurement (mass/volume) 0.96 mg /dL 0.60-1.30 Serum or plasma urea nitrogen/creatinine mass ratio 15 NRG Serum or plasma creatinine measurement with calculation of estimated glomerular filtration rate 57 NRG Serum or plasma glucose measurement (mass/volume) 342 mg/dL 70-105 Serum or plasma calcium measurement (mass/volume) 7.1 mg/dL 8.5-10.1 Serum or plasma total bilirubin measurement (mass/volume) 0.6 mg/dL 0.1-1.0 Serum or plasma alkaline phosphatase measurement (enzymatic activity/volume) 103 U/L 40-136 Serum or plasma aspartate aminotransferase measurement (enzymatic activity/ volume) 27 U/L 5-34 Serum or plasma alanine aminotransferase measurement (enzymatic activity/volume ) 27 U/L 0-55 Serum or plasma protein measurement (mass/volume) 5.0 g/dL 6.4-8.2 Serum or plasma albumin measurement (mass/volume) 2.9 g/dL 3.2-4.5 Serum or plasma phosphate measurement (mass/volume) - 05/18/16 04:00 Serum or plasma phosphate measurement (mass/volume) 3.7 mg/ dL 2.3-4.7 Magnesium - 05/18/16 04:00 Magnesium 2.4 mg/dL 1.8-2.4 Blood lactic acid measurement (moles/volume) - 05/18/16 04:00 Blood lactic acid measurement (moles/volume) 1.7 mmol/L 0.5-2.0 Capillary blood glucose measurement by glucometer (mass/volume) - 05/18/16 13: 17 Capillary blood glucose measurement by glucometer (mass/volume) 188 mg/dL 70-110 Capillary blood glucose measurement by glucometer (mass/volume) - 05/18/16 18: 02 Capillary blood glucose measurement by glucometer (mass/volume) 147 mg/dL 70-110 Capillary blood glucose measurement by glucometer (mass/volume) - 05/18/16 23: 34 Capillary blood glucose measurement by glucometer (mass/volume) 122 mg/dL 70-110 Capillary blood glucose measurement by glucometer (mass/volume) - 05/19/16 05: 38 Capillary blood glucose measurement by glucometer (mass/volume) 136 mg/dL 70-110 Complete blood count (CBC) with automated white blood cell (WBC) differential - 05/19/16 07:08 Blood leukocytes automated count (number/volume) 10.3 10*3/ uL 4.3-11.0 Blood erythrocytes automated count (number/volume) 4.62 10*6 /uL 4.35-5.85 Venous blood hemoglobin measurement (mass/volume) 13.6 g/dL 11.5-16.0 Blood hematocrit (volume fraction) 40 % 35-52 Automated erythrocyte mean corpuscular volume 86 [foz_us] 80-99 Automated erythrocyte mean corpuscular hemoglobin (mass per erythrocyte) 29 pg 25-34 Automated erythrocyte mean corpuscular hemoglobin concentration measurement ( mass/volume) 34 g/dL 32-36 Automated erythrocyte distribution width ratio 14.5 % 10.0-14.5 Automated blood platelet count (count/volume) 137 10*3/uL 130-400 Automated blood platelet mean volume measurement 10.8 [foz_ us] 7.4-10.4 Automated blood neutrophils/100 leukocytes 84 % 42-75 Automated blood lymphocytes/100 leukocytes 11 % 12-44 Blood monocytes/100 leukocytes 5 % 0-12 Automated blood eosinophils/100 leukocytes 0 % 0-10 Automated blood basophils/100 leukocytes 0 % 0-10 Blood neutrophils automated count (number/volume) 8.7 10*3 1.8-7.8 Blood lymphocytes automated count (number/volume) 1.1 10*3 1.0-4.0 Blood monocytes automated count (number/volume) 0.5 10*3 0.0-1.0 Automated eosinophil count 0.0 10*3/uL 0.0-0.3 Automated blood basophil count (count/volume) 0.0 10*3/uL 0.0-0.1 Comprehensive metabolic panel - 05/19/16 07:08 Serum or plasma sodium measurement (moles/volume) 140 mmol/ L 135-145 Serum or plasma potassium measurement (moles/volume) 3.5 mmol/L 3.6-5.0 Serum or plasma chloride measurement (moles/volume) 112 mmol /L 98-107 Carbon dioxide 19 mmol/L 21-32 Serum or plasma anion gap determination (moles/volume) 9 mmol/L 5-14 Serum or plasma urea nitrogen measurement (mass/volume) 13 mg/dL 7-18 Serum or plasma creatinine measurement (mass/volume) 0.67 mg /dL 0.60-1.30 Serum or plasma urea nitrogen/creatinine mass ratio 19 NRG Serum or plasma creatinine measurement with calculation of estimated glomerular filtration rate > NRG Serum or plasma glucose measurement (mass/volume) 116 mg/dL 70-105 Serum or plasma calcium measurement (mass/volume) 8.1 mg/dL 8.5-10.1 Serum or plasma total bilirubin measurement (mass/volume) 0.5 mg/dL 0.1-1.0 Serum or plasma alkaline phosphatase measurement (enzymatic activity/volume) 87 U/L 40-136 Serum or plasma aspartate aminotransferase measurement (enzymatic activity/ volume) 42 U/L 5-34 Serum or plasma alanine aminotransferase measurement (enzymatic activity/volume ) 28 U/L 0-55 Serum or plasma protein measurement (mass/volume) 5.2 g/dL 6.4-8.2 Serum or plasma albumin measurement (mass/volume) 3.1 g/dL 3.2-4.5 Magnesium - 05/19/16 07:08 Magnesium 2.2 mg/dL 1.8-2.4 Capillary blood glucose measurement by glucometer (mass/volume) - 05/19/16 11: 28 Capillary blood glucose measurement by glucometer (mass/volume) 108 mg/dL 70-110 Capillary blood glucose measurement by glucometer (mass/volume) - 05/19/16 17: 30 Capillary blood glucose measurement by glucometer (mass/volume) 134 mg/dL 70-110 Capillary blood glucose measurement by glucometer (mass/volume) - 05/20/16 00: 22 Capillary blood glucose measurement by glucometer (mass/volume) 182 mg/dL 70-110 Capillary blood glucose measurement by glucometer (mass/volume) - 05/20/16 06: 10 Capillary blood glucose measurement by glucometer (mass/volume) 135 mg/dL 70-110 Complete blood count (CBC) with automated white blood cell (WBC) differential - 05/20/16 06:55 Blood leukocytes automated count (number/volume) 9.7 10*3/ uL 4.3-11.0 Blood erythrocytes automated count (number/volume) 4.32 10*6 /uL 4.35-5.85 Venous blood hemoglobin measurement (mass/volume) 12.7 g/dL 11.5-16.0 Blood hematocrit (volume fraction) 37 % 35-52 Automated erythrocyte mean corpuscular volume 85 [foz_us] 80-99 Automated erythrocyte mean corpuscular hemoglobin (mass per erythrocyte) 29 pg 25-34 Automated erythrocyte mean corpuscular hemoglobin concentration measurement ( mass/volume) 35 g/dL 32-36 Automated erythrocyte distribution width ratio 14.2 % 10.0-14.5 Automated blood platelet count (count/volume) 146 10*3/uL 130-400 Automated blood platelet mean volume measurement 10.5 [foz_ us] 7.4-10.4 Automated blood neutrophils/100 leukocytes 85 % 42-75 Automated blood lymphocytes/100 leukocytes 12 % 12-44 Blood monocytes/100 leukocytes 4 % 0-12 Automated blood eosinophils/100 leukocytes 0 % 0-10 Automated blood basophils/100 leukocytes 0 % 0-10 Blood neutrophils automated count (number/volume) 8.2 10*3 1.8-7.8 Blood lymphocytes automated count (number/volume) 1.1 10*3 1.0-4.0 Blood monocytes automated count (number/volume) 0.3 10*3 0.0-1.0 Automated eosinophil count 0.0 10*3/uL 0.0-0.3 Automated blood basophil count (count/volume) 0.0 10*3/uL 0.0-0.1 Comprehensive metabolic panel - 05/20/16 06:55 Serum or plasma sodium measurement (moles/volume) 137 mmol/ L 135-145 Serum or plasma potassium measurement (moles/volume) 3.3 mmol/L 3.6-5.0 Serum or plasma chloride measurement (moles/volume) 108 mmol /L 98-107 Carbon dioxide 18 mmol/L 21-32 Serum or plasma anion gap determination (moles/volume) 11 mmol/L 5-14 Serum or plasma urea nitrogen measurement (mass/volume) 13 mg/dL 7-18 Serum or plasma creatinine measurement (mass/volume) 0.74 mg /dL 0.60-1.30 Serum or plasma urea nitrogen/creatinine mass ratio 18 NRG Serum or plasma creatinine measurement with calculation of estimated glomerular filtration rate > NRG Serum or plasma glucose measurement (mass/volume) 143 mg/dL 70-105 Serum or plasma calcium measurement (mass/volume) 7.7 mg/dL 8.5-10.1 Serum or plasma total bilirubin measurement (mass/volume) 0.5 mg/dL 0.1-1.0 Serum or plasma alkaline phosphatase measurement (enzymatic activity/volume) 81 U/L 40-136 Serum or plasma aspartate aminotransferase measurement (enzymatic activity/ volume) 41 U/L 5-34 Serum or plasma alanine aminotransferase measurement (enzymatic activity/volume ) 34 U/L 0-55 Serum or plasma protein measurement (mass/volume) 5.1 g/dL 6.4-8.2 Serum or plasma albumin measurement (mass/volume) 3.0 g/dL 3.2-4.5 Magnesium - 05/20/16 06:55 Magnesium 2.1 mg/dL 1.8-2.4 Capillary blood glucose measurement by glucometer (mass/volume) - 05/20/16 12: 02 Capillary blood glucose measurement by glucometer (mass/volume) 167 mg/dL 70-110 Complete blood count (CBC) with automated white blood cell (WBC) differential - 12/02/16 22:20 Blood leukocytes automated count (number/volume) 9.8 10*3/ uL 4.3-11.0 Blood erythrocytes automated count (number/volume) 5.19 10*6 /uL 4.35-5.85 Venous blood hemoglobin measurement (mass/volume) 15.3 g/dL 11.5-16.0 Blood hematocrit (volume fraction) 45 % 35-52 Automated erythrocyte mean corpuscular volume 87 [foz_us] 80-99 Automated erythrocyte mean corpuscular hemoglobin (mass per erythrocyte) 30 pg 25-34 Automated erythrocyte mean corpuscular hemoglobin concentration measurement ( mass/volume) 34 g/dL 32-36 Automated erythrocyte distribution width ratio 14.8 % 10.0-14.5 Automated blood platelet count (count/volume) 189 10*3/uL 130-400 Automated blood platelet mean volume measurement 11.3 [foz_ us] 7.4-10.4 Automated blood neutrophils/100 leukocytes 62 % 42-75 Automated blood lymphocytes/100 leukocytes 31 % 12-44 Blood monocytes/100 leukocytes 7 % 0-12 Automated blood eosinophils/100 leukocytes 0 % 0-10 Automated blood basophils/100 leukocytes 0 % 0-10 Blood neutrophils automated count (number/volume) 6.0 10*3 1.8-7.8 Blood lymphocytes automated count (number/volume) 3.0 10*3 1.0-4.0 Blood monocytes automated count (number/volume) 0.6 10*3 0.0-1.0 Automated eosinophil count 0.0 10*3/uL 0.0-0.3 Automated blood basophil count (count/volume) 0.0 10*3/uL 0.0-0.1 PT panel in platelet poor plasma by coagulation assay - 12/02/16 22:20 Prothrombin time (PT) in platelet poor plasma by coagulation assay 12.4 s 12.2-14.7 INR in platelet poor plasma or blood by coagulation assay 1.0 0.8-1.4 Activated partial thromboplastin time (aPTT) in platelet poor plasma bycoagulation assay - 12/02/16 22:20 Activated partial thromboplastin time (aPTT) in platelet poor plasma bycoagulation assay 34 s 24-35 Comprehensive metabolic panel - 12/02/16 22:20 Serum or plasma sodium measurement (moles/volume) 141 mmol/ L 135-145 Serum or plasma potassium measurement (moles/volume) 3.3 mmol/L 3.6-5.0 Serum or plasma chloride measurement (moles/volume) 102 mmol /L 98-107 Carbon dioxide 30 mmol/L 21-32 Serum or plasma anion gap determination (moles/volume) 9 mmol/L 5-14 Serum or plasma urea nitrogen measurement (mass/volume) 11 mg/dL 7-18 Serum or plasma creatinine measurement (mass/volume) 0.87 mg /dL 0.60-1.30 Serum or plasma urea nitrogen/creatinine mass ratio 13 NRG Serum or plasma creatinine measurement with calculation of estimated glomerular filtration rate > NRG Serum or plasma glucose measurement (mass/volume) 170 mg/dL 70-105 Serum or plasma calcium measurement (mass/volume) 8.4 mg/dL 8.5-10.1 Serum or plasma total bilirubin measurement (mass/volume) 0.6 mg/dL 0.1-1.0 Serum or plasma alkaline phosphatase measurement (enzymatic activity/volume) 124 U/L 40-136 Serum or plasma aspartate aminotransferase measurement (enzymatic activity/ volume) 30 U/L 5-34 Serum or plasma alanine aminotransferase measurement (enzymatic activity/volume ) 33 U/L 0-55 Serum or plasma protein measurement (mass/volume) 6.0 g/dL 6.4-8.2 Serum or plasma albumin measurement (mass/volume) 3.6 g/dL 3.2-4.5 Fibrin D-dimer FEU measurement in platelet poor plasma (mass/volume) - 22:20 Fibrin D-dimer FEU measurement in platelet poor plasma (mass/volume) 3.47 ug/mL 0.00-0.49 Magnesium - 12/02/16 22:20 Magnesium 2.5 mg/dL 1.8-2.4 Serum or plasma creatine kinase measurement (enzymatic activity/volume) - 12/02 22:20 Serum or plasma creatine kinase measurement (enzymatic activity/volume) 30 U/L 29-168 Serum or plasma creatine kinase MB measurement (enzymatic activity/volume) - 22:20 Serum or plasma creatine kinase MB measurement (enzymatic activity/volume) 1.7 ng/mL <6.6 Serum or plasma troponin i.cardiac measurement (mass/volume) - 12/02/16 22:20 Serum or plasma troponin i.cardiac measurement (mass/volume) < ng/mL <0.30 Complete urinalysis with reflex to culture - 12/02/16 23:40 Urine color determination YELLOW NRG Urine clarity determination CLEAR NRG Urine pH measurement by test strip 8 5- 9 Specific gravity of urine by test strip 1.020 1.016-1.022 Urine protein assay by test strip, semi-quantitative 2+ NEGATIVE Urine glucose detection by automated test strip 1+ NEGATIVE Erythrocytes detection in urine sediment by light microscopy 1+ NEGATIVE Urine ketones detection by automated test strip 1+ NEGATIVE Urine nitrite detection by test strip NEGATIVE NEGATIVE Urine total bilirubin detection by test strip NEGATIVE NEGATIVE Urine urobilinogen measurement by automated test strip (mass/volume) NORMAL NORMAL Urine leukocyte esterase detection by dipstick 1+ NEGATIVE Automated urine sediment erythrocyte count by microscopy (number/high power field) RARE NRG Automated urine sediment leukocyte count by microscopy (number/high power field ) RARE NRG Bacteria detection in urine sediment by light microscopy TRACE NRG Squamous epithelial cells detection in urine sediment by light microscopy RARE NRG Crystals detection in urine sediment by light microscopy PRESENT NRG Casts detection in urine sediment by light microscopy PRESENT NRG Mucus detection in urine sediment by light microscopy MODERATE NRG Complete urinalysis with reflex to culture YES NRG Amorphous sediment detection in urine sediment by light microscopy RARE MAMI PHOSPHATE NRG Hyaline casts detection in urine sediment by light microscopy 2-5 NRG Bacterial urine culture - 12/02/16 23:40 Bacterial urine culture [id number] NRG COLONY COUNT <10,000 NRG FTX;REPORTABLE SENSITIVITY REPORTED 12/05/16 7:20 NRG Bacterial susceptibility panel - 12/02/16 23:40 Gentamicin susceptibility test by minimum inhibitory concentration >= NRG Trimethoprim/sulfamethoxazole susceptibility test by minimum inhibitoryconcentration >= NRG Ampicillin susceptibility test by minimum inhibitory concentration >= NRG Tobramycin susceptibility test by minimum inhibitory concentration >= NRG Cefazolin susceptibility test by minimum inhibitory concentration I NRG Ceftriaxone susceptibility test by minimum inhibitory concentration S NRG Ampicillin/sulbactam susceptibility test by minimum inhibitory concentration 16 NRG Piperacillin/tazobactam susceptibility test by minimum inhibitory concentration <= NRG Ciprofloxacin susceptibility test by minimum inhibitory concentration >= NRG Meropenem susceptibility test by minimum inhibitory concentration <= NRG Nitrofurantoin susceptibility test by minimum inhibitory concentration 128 NRG Aztreonam susceptibility test by minimum inhibitory concentration S NRG Amikacin susceptibility test by minimum inhibitory concentration S [facility] Bacterial susceptibility panel - 12/02/16 23:40 Gentamicin susceptibility test by minimum inhibitory concentration <= NRG Trimethoprim/sulfamethoxazole susceptibility test by minimum inhibitoryconcentration <= NRG Ampicillin susceptibility test by minimum inhibitory concentration <= NRG Tobramycin susceptibility test by minimum inhibitory concentration <= NRG Cefazolin susceptibility test by minimum inhibitory concentration <= NRG Ceftriaxone susceptibility test by minimum inhibitory concentration <= NRG Ampicillin/sulbactam susceptibility test by minimum inhibitory concentration <= NRG Piperacillin/tazobactam susceptibility test by minimum inhibitory concentration <= NRG Ciprofloxacin susceptibility test by minimum inhibitory concentration 1 NRG Meropenem susceptibility test by minimum inhibitory concentration <= NRG Nitrofurantoin susceptibility test by minimum inhibitory concentration <= NRG Aztreonam susceptibility test by minimum inhibitory concentration <= NRG Extended spectrum beta lactamase (ESBL) producing bacteria susceptibility test by minimum inhibitory concentration - [facility] Capillary blood glucose measurement by glucometer (mass/volume) - 12/03/16 00: 27 Capillary blood glucose measurement by glucometer (mass/volume) 155 mg/dL 70-110 Complete blood count (CBC) with automated white blood cell (WBC) differential - 12/03/16 04:45 Blood leukocytes automated count (number/volume) 16.6 10*3/ uL 4.3-11.0 Blood erythrocytes automated count (number/volume) 4.43 10*6 /uL 4.35-5.85 Venous blood hemoglobin measurement (mass/volume) 13.3 g/dL 11.5-16.0 Blood hematocrit (volume fraction) 39 % 35-52 Automated erythrocyte mean corpuscular volume 89 [foz_us] 80-99 Automated erythrocyte mean corpuscular hemoglobin (mass per erythrocyte) 30 pg 25-34 Automated erythrocyte mean corpuscular hemoglobin concentration measurement ( mass/volume) 34 g/dL 32-36 Automated erythrocyte distribution width ratio 14.7 % 10.0-14.5 Automated blood platelet count (count/volume) 159 10*3/uL 130-400 Automated blood platelet mean volume measurement 11.4 [foz_ us] 7.4-10.4 Automated blood neutrophils/100 leukocytes 69 % 42-75 Automated blood lymphocytes/100 leukocytes 23 % 12-44 Blood monocytes/100 leukocytes 7 % 0-12 Automated blood eosinophils/100 leukocytes 1 % 0-10 Automated blood basophils/100 leukocytes 0 % 0-10 Blood neutrophils automated count (number/volume) 11.4 10*3 1.8-7.8 Blood lymphocytes automated count (number/volume) 3.8 10*3 1.0-4.0 Blood monocytes automated count (number/volume) 1.2 10*3 0.0-1.0 Automated eosinophil count 0.1 10*3/uL 0.0-0.3 Automated blood basophil count (count/volume) 0.0 10*3/uL 0.0-0.1 Blood manual differential performed detection - 12/03/16 04:45 Blood monocytes/100 leukocytes 5 % NRG Manual blood segmented neutrophils/100 leukocytes 64 % NRG Blood band neutrophils/100 leukocytes 2 % NRG Manual blood lymphocytes/100 leukocytes 20 % NRG Manual eosinophils/100 leukocytes in nose 0 % NRG Manual blood basophils/100 leukocytes 0 % NRG Blood lymphocytes variant/100 leukocytes 9 % NRG Blood anisocytosis detection by light microscopy SLIGHT NRG Blood poikilocytosis detection by light microscopy SLIGHT NRG Comprehensive metabolic panel - 12/03/16 04:45 Serum or plasma sodium measurement (moles/volume) 141 mmol/ L 135-145 Serum or plasma potassium measurement (moles/volume) 3.3 mmol/L 3.6-5.0 Serum or plasma chloride measurement (moles/volume) 107 mmol /L 98-107 Carbon dioxide 24 mmol/L 21-32 Serum or plasma anion gap determination (moles/volume) 10 mmol/L 5-14 Serum or plasma urea nitrogen measurement (mass/volume) 12 mg/dL 7-18 Serum or plasma creatinine measurement (mass/volume) 0.85 mg /dL 0.60-1.30 Serum or plasma urea nitrogen/creatinine mass ratio 14 NRG Serum or plasma creatinine measurement with calculation of estimated glomerular filtration rate > NRG Serum or plasma glucose measurement (mass/volume) 164 mg/dL 70-105 Serum or plasma calcium measurement (mass/volume) 7.7 mg/dL 8.5-10.1 Serum or plasma total bilirubin measurement (mass/volume) 0.9 mg/dL 0.1-1.0 Serum or plasma alkaline phosphatase measurement (enzymatic activity/volume) 105 U/L 40-136 Serum or plasma aspartate aminotransferase measurement (enzymatic activity/ volume) 24 U/L 5-34 Serum or plasma alanine aminotransferase measurement (enzymatic activity/volume ) 27 U/L 0-55 Serum or plasma protein measurement (mass/volume) 5.0 g/dL 6.4-8.2 Serum or plasma albumin measurement (mass/volume) 3.1 g/dL 3.2-4.5 Serum or plasma phosphate measurement (mass/volume) - 12/03/16 04:45 Serum or plasma phosphate measurement (mass/volume) 0.8 mg/ dL 2.3-4.7 Magnesium - 12/03/16 04:45 Magnesium 2.1 mg/dL 1.8-2.4 Serum or plasma troponin i.cardiac measurement (mass/volume) - 12/03/16 04:45 Serum or plasma troponin i.cardiac measurement (mass/volume) < ng/mL <0.30 Serum or plasma lithium measurement (moles/volume) - 12/03/16 04:45 BNP level 66.1 pg/mL <100.0 Arterial blood gas measurement - 12/03/16 04:50 Blood pCO2 39 mm[Hg] 35-45 Blood pO2 101 mm[Hg] 79-93 Arterial blood bicarbonate measurement (moles/volume) 24 mmol/L 23-27 Arterial blood base excess by calculation -0.6 mmol/L -2.5-2.5 Arterial blood oxygen saturation measurement 99 % 94-100 * Inhaled oxygen flow rate UNK NRG Arterial blood pH measurement with patient temperature correction 7.40 7.37-7.43 Arterial blood carbon dioxide, total measurement (moles/volume) 24.7 mmol/L 21.0-31.0 Body site LRAD NRG Assessment of wrist artery patency prior to arterial puncture YES-POS NRG Setting of ventilation mode NO NRG Measurement of body temperature 98.6 NRG Blood lactic acid measurement (moles/volume) - 12/03/16 07:30 Blood lactic acid measurement (moles/volume) 3.17 mmol/L 0.50-2.00 Serum or plasma phosphate measurement (mass/volume) - 12/03/16 07:30 Serum or plasma phosphate measurement (mass/volume) < mg/dL 2.3-4.7 IONIZED CALCIUM (SEND OFF) - 12/03/16 07:30 Blood ionized calcium measurement (mass/volume) 1.03 % 1.16-1.32 Venous blood ionized calcium measurement adjusted to pH 7.4 (moles/volume) 0.99 % 1.16-1.32 pH measurement 7.34 NRG Bacterial blood culture - 12/03/16 07:30 Bacterial blood culture NG NRG Bacterial blood culture - 12/03/16 07:55 Bacterial blood culture NG NRG Serum or plasma lactate measurement (moles/volume) - 12/03/16 09:38 Serum or plasma lactate measurement (moles/volume) 2.24 mmol /L 0.50-2.00 Capillary blood glucose measurement by glucometer (mass/volume) - 12/03/16 11: 28 Capillary blood glucose measurement by glucometer (mass/volume) 212 mg/dL 70-110 Blood lactic acid measurement (moles/volume) - 12/03/16 19:05 Blood lactic acid measurement (moles/volume) 2.88 mmol/L 0.50-2.00 Whole blood basic metabolic panel - 12/03/16 19:05 Serum or plasma sodium measurement (moles/volume) 143 mmol/ L 135-145 Serum or plasma potassium measurement (moles/volume) 4.1 mmol/L 3.6-5.0 Serum or plasma chloride measurement (moles/volume) 113 mmol /L 98-107 Carbon dioxide 25 mmol/L 21-32 Serum or plasma anion gap determination (moles/volume) 5 mmol/L 5-14 Serum or plasma urea nitrogen measurement (mass/volume) 11 mg/dL 7-18 Serum or plasma creatinine measurement (mass/volume) 0.79 mg /dL 0.60-1.30 Serum or plasma urea nitrogen/creatinine mass ratio 14 NRG Serum or plasma creatinine measurement with calculation of estimated glomerular filtration rate > NRG Serum or plasma glucose measurement (mass/volume) 190 mg/dL 70-105 Serum or plasma calcium measurement (mass/volume) 7.1 mg/dL 8.5-10.1 Serum or plasma phosphate measurement (mass/volume) - 12/03/16 19:05 Serum or plasma phosphate measurement (mass/volume) 2.9 mg/ dL 2.3-4.7 Magnesium - 12/03/16 19:05 Magnesium 1.7 mg/dL 1.8-2.4 Complete blood count (CBC) with automated white blood cell (WBC) differential - 12/03/16 19:05 Blood leukocytes automated count (number/volume) 13.1 10*3/ uL 4.3-11.0 Blood erythrocytes automated count (number/volume) 2.97 10*6 /uL 4.35-5.85 Venous blood hemoglobin measurement (mass/volume) 8.7 g/dL 11.5-16.0 Blood hematocrit (volume fraction) 27 % 35-52 Automated erythrocyte mean corpuscular volume 90 [foz_us] 80-99 Automated erythrocyte mean corpuscular hemoglobin (mass per erythrocyte) 29 pg 25-34 Automated erythrocyte mean corpuscular hemoglobin concentration measurement ( mass/volume) 33 g/dL 32-36 Automated erythrocyte distribution width ratio 14.8 % 10.0-14.5 Automated blood platelet count (count/volume) 154 10*3/uL 130-400 Automated blood platelet mean volume measurement 11.5 [foz_ us] 7.4-10.4 Automated blood neutrophils/100 leukocytes 74 % 42-75 Automated blood lymphocytes/100 leukocytes 18 % 12-44 Blood monocytes/100 leukocytes 7 % 0-12 Automated blood eosinophils/100 leukocytes 0 % 0-10 Automated blood basophils/100 leukocytes 0 % 0-10 Blood neutrophils automated count (number/volume) 9.7 10*3 1.8-7.8 Blood lymphocytes automated count (number/volume) 2.4 10*3 1.0-4.0 Blood monocytes automated count (number/volume) 0.9 10*3 0.0-1.0 Automated eosinophil count 0.0 10*3/uL 0.0-0.3 Automated blood basophil count (count/volume) 0.0 10*3/uL 0.0-0.1 Serum or plasma lithium measurement (moles/volume) - 12/03/16 19:05 BNP level 102.1 pg/mL <100.0 Serum or plasma lactate measurement (moles/volume) - 12/03/16 21:10 Serum or plasma lactate measurement (moles/volume) 2.59 mmol /L 0.50-2.00 RED CELLS LEUKO REDUCED AS1 - 12/04/16 00:15 RED CELLS LEUKO REDUCED AS1 NOT AVAILABLE NRG Blood type T Indirect antibody screen panel - 12/04/16 00:15 ABO+Rh group OP NRG Transfusion band number [id number] NRG Blood group antibody screen NEGATIVE NRG Capillary blood glucose measurement by glucometer (mass/volume) - 12/04/16 00: 19 Capillary blood glucose measurement by glucometer (mass/volume) 135 mg/dL 70-110 Complete blood count (CBC) with automated white blood cell (WBC) differential - 12/04/16 04:25 Blood leukocytes automated count (number/volume) 10.4 10*3/ uL 4.3-11.0 Blood erythrocytes automated count (number/volume) 2.40 10*6 /uL 4.35-5.85 Venous blood hemoglobin measurement (mass/volume) 7.1 g/dL 11.5-16.0 Blood hematocrit (volume fraction) 22 % 35-52 Automated erythrocyte mean corpuscular volume 90 [foz_us] 80-99 Automated erythrocyte mean corpuscular hemoglobin (mass per erythrocyte) 30 pg 25-34 Automated erythrocyte mean corpuscular hemoglobin concentration measurement ( mass/volume) 33 g/dL 32-36 Automated erythrocyte distribution width ratio 14.8 % 10.0-14.5 Automated blood platelet count (count/volume) 105 10*3/uL 130-400 Automated blood platelet mean volume measurement 10.9 [foz_ us] 7.4-10.4 Automated blood neutrophils/100 leukocytes 85 % 42-75 Automated blood lymphocytes/100 leukocytes 9 % 12-44 Blood monocytes/100 leukocytes 6 % 0-12 Automated blood eosinophils/100 leukocytes 0 % 0-10 Automated blood basophils/100 leukocytes 0 % 0-10 Blood neutrophils automated count (number/volume) 8.8 10*3 1.8-7.8 Blood lymphocytes automated count (number/volume) 0.9 10*3 1.0-4.0 Blood monocytes automated count (number/volume) 0.7 10*3 0.0-1.0 Automated eosinophil count 0.0 10*3/uL 0.0-0.3 Automated blood basophil count (count/volume) 0.0 10*3/uL 0.0-0.1 Whole blood basic metabolic panel - 12/04/16 04:25 Serum or plasma sodium measurement (moles/volume) 145 mmol/ L 135-145 Serum or plasma potassium measurement (moles/volume) 3.4 mmol/L 3.6-5.0 Serum or plasma chloride measurement (moles/volume) 117 mmol /L 98-107 Carbon dioxide 20 mmol/L 21-32 Serum or plasma anion gap determination (moles/volume) 8 mmol/L 5-14 Serum or plasma urea nitrogen measurement (mass/volume) 12 mg/dL 7-18 Serum or plasma creatinine measurement (mass/volume) 0.66 mg /dL 0.60-1.30 Serum or plasma urea nitrogen/creatinine mass ratio 18 NRG Serum or plasma creatinine measurement with calculation of estimated glomerular filtration rate > NRG Serum or plasma glucose measurement (mass/volume) 192 mg/dL 70-105 Serum or plasma calcium measurement (mass/volume) 6.8 mg/dL 8.5-10.1 Serum or plasma phosphate measurement (mass/volume) - 12/04/16 04:25 Serum or plasma phosphate measurement (mass/volume) 2.8 mg/ dL 2.3-4.7 Magnesium - 12/04/16 04:25 Magnesium 1.6 mg/dL 1.8-2.4 Serum or plasma lithium measurement (moles/volume) - 12/04/16 04:25 BNP level 96.2 pg/mL <100.0 Blood lactic acid measurement (moles/volume) - 12/04/16 05:14 Blood lactic acid measurement (moles/volume) 0.88 mmol/L 0.50-2.00 Capillary blood glucose measurement by glucometer (mass/volume) - 12/04/16 12: 35 Capillary blood glucose measurement by glucometer (mass/volume) 246 mg/dL 70-110 Capillary blood glucose measurement by glucometer (mass/volume) - 12/04/16 17: 55 Capillary blood glucose measurement by glucometer (mass/volume) 282 mg/dL 70-110 Complete blood count (CBC) with automated white blood cell (WBC) differential - 12/05/16 04:30 Blood leukocytes automated count (number/volume) 10.2 10*3/ uL 4.3-11.0 Blood erythrocytes automated count (number/volume) 2.67 10*6 /uL 4.35-5.85 Venous blood hemoglobin measurement (mass/volume) 8.0 g/dL 11.5-16.0 Blood hematocrit (volume fraction) 24 % 35-52 Automated erythrocyte mean corpuscular volume 88 [foz_us] 80-99 Automated erythrocyte mean corpuscular hemoglobin (mass per erythrocyte) 30 pg 25-34 Automated erythrocyte mean corpuscular hemoglobin concentration measurement ( mass/volume) 34 g/dL 32-36 Automated erythrocyte distribution width ratio 14.8 % 10.0-14.5 Automated blood platelet count (count/volume) 101 10*3/uL 130-400 Automated blood platelet mean volume measurement 11.0 [foz_ us] 7.4-10.4 Automated blood neutrophils/100 leukocytes 73 % 42-75 Automated blood lymphocytes/100 leukocytes 20 % 12-44 Blood monocytes/100 leukocytes 7 % 0-12 Automated blood eosinophils/100 leukocytes 0 % 0-10 Automated blood basophils/100 leukocytes 0 % 0-10 Blood neutrophils automated count (number/volume) 7.5 10*3 1.8-7.8 Blood lymphocytes automated count (number/volume) 2.0 10*3 1.0-4.0 Blood monocytes automated count (number/volume) 0.7 10*3 0.0-1.0 Automated eosinophil count 0.0 10*3/uL 0.0-0.3 Automated blood basophil count (count/volume) 0.0 10*3/uL 0.0-0.1 Whole blood basic metabolic panel - 12/05/16 04:30 Serum or plasma sodium measurement (moles/volume) 143 mmol/ L 135-145 Serum or plasma potassium measurement (moles/volume) 3.7 mmol/L 3.6-5.0 Serum or plasma chloride measurement (moles/volume) 115 mmol /L 98-107 Carbon dioxide 24 mmol/L 21-32 Serum or plasma anion gap determination (moles/volume) 4 mmol/L 5-14 Serum or plasma urea nitrogen measurement (mass/volume) 11 mg/dL 7-18 Serum or plasma creatinine measurement (mass/volume) 0.67 mg /dL 0.60-1.30 Serum or plasma urea nitrogen/creatinine mass ratio 16 NRG Serum or plasma creatinine measurement with calculation of estimated glomerular filtration rate > NRG Serum or plasma glucose measurement (mass/volume) 147 mg/dL 70-105 Serum or plasma calcium measurement (mass/volume) 7.4 mg/dL 8.5-10.1 Serum or plasma phosphate measurement (mass/volume) - 12/05/16 04:30 Serum or plasma phosphate measurement (mass/volume) 1.8 mg/ dL 2.3-4.7 Magnesium - 12/05/16 04:30 Magnesium 1.9 mg/dL 1.8-2.4 Capillary blood glucose measurement by glucometer (mass/volume) - 12/05/16 11: 10 Capillary blood glucose measurement by glucometer (mass/volume) 104 mg/dL 70-110 Encounters ACCT No. Visit Date/Time Discharge Status Pt. Type Provider Facility Loc./Unit Complaint [id number] 05/26/2014 13:43:00 05/26/2014 23: 59:59 CLS Outpatient MARYBETH WESTON MD [id number] 01/05/2014 08:08:00 01/05/2014 23: 59:59 CLS Outpatient KATELYNN ACEVEDO APRN [id number] 12/07/2013 16:56:00 12/07/2013 23: 59:59 CLS Outpatient MARYBETH WESTON MD [id number] 11/03/2013 09:39:00 11/03/2013 23: 59:59 CLS Outpatient KATELYNN ACEVEDO APRN [id number] 11/03/2013 09:39:00 11/03/2013 23: 59:59 CLS Outpatient KATELYNN ACEVEDO APRN [id number] 06/29/2013 13:13:00 06/29/2013 23: 59:59 CLS Outpatient MARYBETH WESTON MD [id number] 06/29/2013 13:13:00 06/29/2013 23: 59:59 CLS Outpatient MARYBETH WESTON MD [id number] 12/14/2012 09:13:00 12/14/2012 23: 59:59 CLS Outpatient MARYBETH WESTON MD [id number] 06/22/2012 15:47:00 06/22/2012 23: 59:59 CLS Outpatient MARYBETH WESTON MD [id number] 12/14/2012 09:13:00 Document Registration
--- OUTSIDE RECORDS SUMMARY | 2017-01-05 07:16 | XMS REPORT ---
Author Author KATELYNN ACEVEDO Organization eClinical[employer] Address Unknown Phone Unavailable Care Team Providers Care Mutuel Teller Name Role Phone KATELYNN ACEVEDO CP Unavailable Allergies No Known Allergies Problems Problem Type Condition Code Onset Dates Condition Status Problem Adrenal insufficiency E27.40 Active Problem Back pain M54.9 Active Problem Diabetes E11.9 Active Problem Unspecified hypothyroidism 244.9 Active Medications Medication Code System Code Instructions Start Date End Date Status Dosage Metformin HCl [facility] 35865123329 500 Orally 2 times a day 2 tablets Results No Known Results Summary Purpose eClinicalWorks Submission
--- OUTSIDE RECORDS SUMMARY | 2017-01-05 07:16 | XMS REPORT ---
Author Author KATELYNN ACEVEDO Organization e[employer] Address Unknown Phone Unavailable Care Team Providers Care Distribution Associate Name Role Phone KATELYNN ACEVEDO CP Unavailable Allergies No Known Allergies Problems Problem Type Condition Code Onset Dates Condition Status Problem Adrenal insufficiency E27.40 Active Problem Back pain M54.9 Active Problem Diabetes E11.9 Active Problem Unspecified hypothyroidism 244.9 Active Assessment Back pain M54.9 Active Medications Medication Code System Code Instructions Start Date End Date Status Dosage Hydrocodone-Acetaminophen [facility] [address]-07 5-325 MG Orally ([facility]) every 6 hrs Oct 13, 2015 1 tablet as needed Results No Known Results Summary Purpose eClinicalWorks Submission
--- OUTSIDE RECORDS SUMMARY | 2017-01-05 07:16 | XMS REPORT ---
Author Author MARYBETH WESTON [facility] eClinicalWorks Address Unknown Phone Unavailable Care Team Providers Care Hydraulic Strainer Operator Name Role Phone MARYBETH WESTON CP Unavailable Allergies No Known Allergies Problems Problem Type Condition Code Onset Dates Condition Status Problem Adrenal insufficiency E27.40 Active Problem Back pain M54.9 Active Problem Diabetes E11.9 Active Problem Unspecified hypothyroidism 244.9 Active Medications No Known Medications Results No Known Results Summary Purpose eClinicalWorks Submission
--- OUTSIDE RECORDS SUMMARY | 2017-01-05 07:16 | XMS REPORT ---
Author Author MARYBETH WESTON [facility] Address [address] [place] [address] Care Team Providers Care Director Of Finance Name Role Phone MARYBETH WESTON Unavailable PROBLEMS Type Condition ICD9-CM Code [id number] Code Onset Dates Condition Status SNOMED Code Problem Diabetes E11.9 Active 44499550 Problem Adrenal insufficiency E27.40 Active 981110373 Problem Back pain M54.9 Active 976254611 Problem Unspecified hypothyroidism 244.9 Active 87508882 ALLERGIES Unknown Allergies SOCIAL HISTORY No smoking Hx information available PLAN OF CARE VITAL SIGNS MEDICATIONS Medication Instructions Dosage Frequency Start Date End Date Duration Status Hydrocodone-Acetaminophen 5-325 MG Orally ([facility]) every 6 hrs 1 tablet as needed 6h 12 Oct, 2015 Jun, 30 days Active RESULTS No Results PROCEDURES No Known procedures IMMUNIZATIONS No Known Immunizations
--- OUTSIDE RECORDS SUMMARY | 2017-01-05 07:16 | XMS REPORT ---
Author Author MARYBETH WESTON [facility] eClinicalWorks Address Unknown Phone Unavailable Care Team Providers Care Basket Filler Name Role Phone MARYBETH WESTON CP Unavailable Allergies, Adverse Reactions, Alerts Substance Reaction Event Type Penicillin V Potassium Info Not Available Drug Allergy Ampicillin Info Not Available Drug Allergy Problems Problem Type Condition Code Onset Dates Condition Status Assessment Back pain M54.9 Active Problem Adrenal insufficiency E27.40 Active Problem Back pain M54.9 Active Problem Diabetes E11.9 Active Assessment Diabetes E11.9 Active Assessment Adrenal insufficiency E27.40 Active Problem Unspecified hypothyroidism 244.9 Active Assessment Weakness R53.1 Active Medications Medication Code System Code Instructions Start Date End Date Status Dosage Tramadol HCl [facility] [address]-16 50 MG Orally 3 times a day Aug 07, 2015 1 tablet as needed Hydrocortisone [facility] 09961227348 20 TAKE ONE TABLET BY MOUTH EVERY MORNING AND TAKE ONE-HALF TABLET BY MOUTH EVERY EVENING GlipiZIDE [facility] 86266614757 10 TAKE ONE TABLET BY MOUTH DAILY Acetaminophen [facility] [address]-47 325 MG Orally every 6 hrs 1 tablet as needed Fludrocortisone Acetate [facility] [address]-13 0.5 mg Orally Aug 07, 2015 1 tablet Procedures Procedure Coding System Code Date VENIPUNCT, ROUTINE* CPT-4 09665 Aug 14, 2015 [facility] VISIT ESTABLISHED PATIENT CPT-4 G0467 Aug 14, 2015 [facility] CPT-4 NOBLL Aug 14, 2015 Office Visit, Est Pt., Level 4 CPT-4 20662 Aug 14, 2015 Vital Signs Date/Time: Aug 14, 2015 Temperature 98.1 F Weight 154 lbs Height 62 in BMI 28.16 Index Blood Pressure Diastolic 70 mmHg Blood Pressure Systolic 102 mmHg Cardiac Monitoring Heart Rate 114 bpm Results Name Result Date Reference Range Unit Abnormality Flag ROUTINE VENIPUNCTURE Summary Purpose eClinicalWorks Submission
--- OUTSIDE RECORDS SUMMARY | 2017-01-05 07:16 | XMS REPORT ---
Author Author MARYBETH WESTON Organization eClinical[employer] Address Unknown Phone Unavailable Care Team Providers Care Project Planner Name Role Phone MARYBETH WESTON Unavailable Allergies No Known Allergies Problems Problem Type Condition Code Onset Dates Condition Status Problem Adrenal insufficiency E27.40 Active Problem Back pain M54.9 Active Problem Diabetes E11.9 Active Problem Unspecified hypothyroidism 244.9 Active Medications Medication Code System Code Instructions Start Date End Date Status Dosage Cymbalta [facility] [address]-83 30 MG Orally Twice a day Aug 21, 2015 1 capsule Results No Known Results Summary Purpose eClinicalWorks Submission
--- OUTSIDE RECORDS SUMMARY | 2017-01-05 07:16 | XMS REPORT ---
Author Author MARYBETH WESTON Organization eClinicalWorks Address Unknown Phone Unavailable Care Team Providers Care Manager Labor Relations Name Role Phone MARYBETH WESTON CP Unavailable Allergies No Known Allergies Problems Problem Type Condition Code Onset Dates Condition Status Problem Closed fracture of unspecified part of neck of femur 820.8 Active Problem Edema 782.3 Active Problem Glucocorticoid deficiency 255.41 Active Problem Need for prophylactic vaccination and inoculation, Influenza V04.81 Active Problem Unspecified hypothyroidism 244.9 Active Medications No Known Medications Results No Known Results Summary Purpose eClinicalWorks Submission
--- OUTSIDE RECORDS SUMMARY | 2017-01-05 07:16 | XMS REPORT ---
Author Author KATELYNN ACEVEDO Organization eClinicalWorks Address Unknown Phone Unavailable Care Team Providers Care Supervisor Sanding Name Role Phone KATELYNN ACEVEDO CP Unavailable Allergies No Known Allergies Problems Problem Type Condition Code Onset Dates Condition Status Problem Adrenal insufficiency E27.40 Active Problem Back pain M54.9 Active Problem Diabetes E11.9 Active Problem Unspecified hypothyroidism 244.9 Active Medications No Known Medications Results No Known Results Summary Purpose eClinicalWorks Submission
--- OUTSIDE RECORDS SUMMARY | 2017-01-05 07:16 | XMS REPORT ---
Author Author AGNES SHARP Organization [facility] Address [address] [place] [address] Care Team Providers Care Senior Controls Technician Name Role Phone AGNES SHARP Unavailable PROBLEMS Type Condition ICD9-CM Code [id number] Code Onset Dates Condition Status SNOMED Code Problem Diabetes E11.9 Active 59627903 Problem Adrenal insufficiency E27.40 Active 567502486 Problem Back pain M54.9 Active 090608924 Problem Unspecified hypothyroidism 244.9 Active 47335170 ALLERGIES Unknown Allergies SOCIAL HISTORY No smoking Hx information available PLAN OF CARE VITAL SIGNS MEDICATIONS Medication Instructions Dosage Frequency Start Date End Date Duration Status Hydrocodone-Acetaminophen 5-325 MG Orally ([facility]) every 6 hrs 1 tablet as needed 6h 12 Oct, 2015 Active Hydrocortisone 10 mg Orally, in pM Once a day 1 tablet 24h Active Cymbalta 30 MG Orally Once a day 1 capsule 24h Aug, Active Cefdinir 300 MG Orally every 12 hrs for 5 days 1 capsule Active Hydrocortisone 20 mg Orally, AM Once a day 1 tablet 24h Active Zinc Oxide 11.3 % Externally 2 times a day 1 application to affected area 12h Active Wheelchair December, Active Metformin HCl 500 TAKE ONE TABLET BY MOUTH DAILY 30 Active Fludrocortisone Acetate 0.1 MG Orally Once a day 1 tablet 24h Aug, Active Aspirin 81 MG Orally Once a day 1 tablet 24h Active RESULTS No Results PROCEDURES No Known procedures IMMUNIZATIONS No Known Immunizations
--- OUTSIDE RECORDS SUMMARY | 2017-01-05 07:16 | XMS REPORT ---
Author Author DILLON MARVIN [facility] eClinicalWorks Address Unknown Phone Unavailable Care Team Providers Care Backpackers Manager Name Role Phone DILLON MARVIN Unavailable Allergies No Known Allergies Problems Problem Type Condition Code Onset Dates Condition Status Problem Adrenal insufficiency E27.40 Active Problem Back pain M54.9 Active Problem Diabetes E11.9 Active Problem Unspecified hypothyroidism 244.9 Active Medications Medication Code System Code Instructions Start Date End Date Status Dosage Cymbalta [facility] [address]-57 30 MG Orally Once a day Aug 21, 2015 1 capsule Hydroc[address]isone [facility] [address]-29 10 MG Orally Once a day 1 tablet Zinc Oxide [facility] [address]-00 20 % Externally not defined Wheelchair [facility] 0 January 25, 2014 not defined Hydrocodone-Acetaminophen [facility] [address]-84 5-325 MG Orally every 6 hrs Oct 13, 2015 1 tablet as needed Hydrocortisone [facility] [address]-48 20 MG Orally Once a day [address] [facility] [address]-18 500 MG Orally Twice a day (#10) December 26, 2015 1 tablet [address]efdin[address] [facility] [address]-30 300 MG Orally every 12 hrs (#10) December 26, 2015 1 capsule MetFORMIN HCl ER [facility] [address]-49 500 MG Orally Once a day 1 tablet with evening meal Fludrocortisone Acetate [facility] [address]-34 0.1 MG Orally Once a day Aug 07, 2015 1 tablet Results No Known Results Summary Purpose eClinicalWorks Submission
--- OUTSIDE RECORDS SUMMARY | 2017-01-05 07:16 | XMS REPORT ---
Author Author KATELYNN ACEVEDO Organization eClinicalWorks Address Unknown Phone Unavailable Care Team Providers Care Software Clerk Name Role Phone KATELYNN ACEVEDO CP Unavailable Allergies No Known Allergies Problems Problem Type Condition Code Onset Dates Condition Status Problem Adrenal insufficiency E27.40 Active Problem Back pain M54.9 Active Problem Diabetes E11.9 Active Problem Unspecified hypothyroidism 244.9 Active Assessment Dementia with behavioral disturbance, unspecified dementia type F03.91 Active Medications No Known Medications Procedures Procedure Coding System Code Date Stable Visit (10 minutes) CPT-4 94726 May 22, 2016 Results No Known Results Summary Purpose eClinicalWorks Submission
--- OUTSIDE RECORDS SUMMARY | 2017-01-05 07:16 | XMS REPORT ---
Author Author KATELYNN ACEVEDO Organization eClinicalWorks Address Unknown Phone Unavailable Care Team Providers Care Correspondence Section Supervisor Name Role Phone KATELYNN ACEVEDO CP Unavailable Allergies No Known Allergies Problems Problem Type Condition Code Onset Dates Condition Status Problem Adrenal insufficiency E27.40 Active Problem Back pain M54.9 Active Problem Diabetes E11.9 Active Problem Unspecified hypothyroidism 244.9 Active Medications No Known Medications Results No Known Results Summary Purpose eClinicalWorks Submission
--- OUTSIDE RECORDS SUMMARY | 2017-01-05 07:16 | XMS REPORT ---
Author Author KATELYNN ACEVEDO Organization eClinicalWorks Address Unknown Phone Unavailable Care Team Providers Care Scout Sniper Name Role Phone KATELYNN ACEVEDO Unavailable Allergies No Known Allergies Problems Problem Type Condition Code Onset Dates Condition Status Problem Adrenal insufficiency E27.40 Active Problem Back pain M54.9 Active Problem Diabetes E11.9 Active Problem Unspecified hypothyroidism 244.9 Active Medications Medication Code System Code Instructions Start Date End Date Status Dosage Zinc Oxide [facility] [address]33 11.3 % Externally 2 times a day 1 application to affected area Hydrocodone-Acetaminophen [facility] [address]-47 5-325 MG Orally ([facility]) every 6 hrs Oct 13, 2015 1 tablet as needed Milk of Magnesia [facility] [address]-73 400 MG/5ML Orally Once a day 30 ml as needed Hydrocortisone [facility] [address]-03 10 mg Orally, in pM Once a day 1 tablet MetFORMIN HCl ER [facility] [address]-53 500 MG Orally Once a day 1 tablet with evening meal Wheelchair [facility] 0 January 25, 2014 not defined Fludrocortisone Acetate [facility] [address]-71 0.1 MG Orally Once a day Aug 07, 2015 1 tablet Nystatin [facility] [address]-85 - Externally Twice a day 1 to affected area Cymbalta [facility] [address]-51 30 MG Orally Once a day Aug 21, 2015 1 capsule Hydrocortisone [facility] [address]-58 20 mg Orally, AM Once a day 1 tablet Colace [facility] [address]-03 100 MG Orally twice a day 1 capsule as needed Results No Known Results Summary Purpose eClinicalWorks Submission
--- OUTSIDE RECORDS SUMMARY | 2017-01-05 07:16 | XMS REPORT ---
Author Author MARYBETH WESTON [facility] eClinicalWorks Address Unknown Phone Unavailable Care Team Providers Care Spooler Operator Name Role Phone MARYBETH WESTON CP [...] Date End Date Status Dosage Tramadol HCl [facility] [address]-50 50 MG Orally 3 times a day Aug 07, 2015 1 tablet as needed Fludrocortisone Acetate [facility] [address]-54 0.5 mg Orally Aug 07, 2015 1 tablet Results No Known Results Summary Purpose eClinicalWorks Submission
--- OUTSIDE RECORDS SUMMARY | 2017-01-05 07:16 | XMS REPORT ---
Author Author MARYBETH WESTON [facility] eClinicalWorks Address Unknown Phone Unavailable Care Team Providers Care Security Sergeant Name Role Phone MARYBETH WESTON Unavailable Allergies No Known Allergies Problems Problem Type Condition Code Onset Dates Condition Status Problem Adrenal insufficiency E27.40 Active Problem Back pain M54.9 Active Problem Diabetes E11.9 Active Problem Unspecified hypothyroidism 244.9 Active Medications Medication Code System Code Instructions Start Date End Date Status Dosage Cymbalta [facility] [address]-64 30 MG Orally Once a day Aug 21, 2015 1 capsule Hydrocodone-Acetaminophen [facility] [address]-76 5-325 MG Orally every 6 hrs Oct 13, 2015 1 tablet as needed Wheelchair [facility] 0 January 25, 2014 not defined Hydrocortisone [facility] [address]-32 20 MG Orally Once a day 1 tablet Fludrocortisone Acetate [facility] [address]-49 0.1 MG Orally Once a day Aug 07, 2015 1 tablet MetFORMIN HCl ER [facility] [address]-72 500 MG Orally Once a day 1 tablet with evening meal Hydrocortisone [facility] [address]-38 10 MG Orally Once a day 1 tablet Results No Known Results Summary Purpose eClinicalWorks Submission
--- OUTSIDE RECORDS SUMMARY | 2017-01-05 07:16 | XMS REPORT ---
Author Author KATELYNN ACEVEDO [facility] Address [address] [place] [address] Care Team Providers Care Barrel Filler Head Name Role Phone KATELYNN ACEVEDO Unavailable PROBLEMS Type Condition ICD9-CM Code [id number] Code Onset Dates Condition Status SNOMED Code Problem Diabetes E11.9 Active 44548715 Problem Adrenal insufficiency E27.40 Active 392194014 Assessment Other insomnia G47.09 10 Apr, 2016 Active 597745829 Problem Back pain M54.9 Active 030601933 Problem Unspecified hypothyroidism 244.9 Active 19717203 ALLERGIES Unknown Allergies SOCIAL HISTORY No smoking Hx information available PLAN OF CARE VITAL SIGNS MEDICATIONS Unknown Medications RESULTS No Results PROCEDURES Procedure Date Ordered Related Diagnosis Body Site Stable Visit (10 minutes) Apr 10, 2016 IMMUNIZATIONS No Known Immunizations
--- OUTSIDE RECORDS SUMMARY | 2017-01-05 12:47 | XMS REPORT | Continuity of Care Document ---
Author Author [facility] Address Unknown Phone Unavailable Allergies Active Description Code Type Severity Reaction Onset Reported/Identified Relationship to Patient Clinical Status Yes Penicillins [id number] Drug Allergy Mild N/A 08/03/2008 Yes ampicillin [...] MARYBETH WESTON MD 703.8 Onychocryptosis 03/21/2009 [employer] WHIP[employer], KATELYNN S 110.1 Onychomycosis 03/21/2009 [employer] FAITHN, KATELYNN S 250.6 DIABETES w/ NEURO 03/21/2009 [employer] NEC[employer] WH[employer], KATELYNN S 703.8 Onychocryptosis 03/21/2009 [employer] NECK WHIPPER, KATELYNN S 110.1 Onychomycosis 03/21/2009 [employer] FAITHN, KATELYNN S 250.6 DIABETES w/ NEURO 03/21/2009 [employer] NECK WHIPPER, KATELYNN S 703.8 Onychocryptosis 03/21/2009 TRISTA ARCINIEGA, [...] 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 05/11/2009 [employer]EC[employer] WHIP[employer], KATELYNN S 368.9 Visual Disturbances 05/11/2009 [employer] WH[employer], KATELYNN S 781.2 Disturbance Of Gait 05/11/2009 [employer] WH[employer], KATELYNN S V04.81 Flu Shot 05/11/2009 [employer], KATELYNN S V05.8 Need For Prophylactic Vaccination And Inoculation Against Other Specified Disease 05/11/2009 [employer] KATELYNN S 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 05/11/2009 [employer] WHIP[employer], KATELYNN S 368.9 Visual Disturbances 05/11/2009 [employer] WHIP[employer], KATELYNN S 781.2 Disturbance Of Gait 05/11/2009 [employer], KATELYNN S V04.81 Flu Shot 05/11/2009 [employer] N[employer] WHIPPER, KATELYNN S V05.8 Need For Prophylactic Vaccination [...] UNSPECIFIED TYPE NOT STATED UNCONTROLLED 08/18/2009 MARYBETH WSETON MD 250.60 NEUROPATHY WITH NEUROLOGICAL MANIFESTATIONS TYPE [...] UNSPECIFIED TYPE NOT STATED UNCONTROLLED 06/20/2010 MARYBETH WESOTN 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 I [...] MD Ot 401.9 HYPERTENSION NOS 11/24/2013 MARYBETH EWSTON MD Ot 427.89 CARDIAC DYSRHYTHMIAS NEC 11/24/2013 MARYBETH WESTON MD Ot 458.9 HYPOTENSION NOS 11/24/2013 MARYBETH WESTON MD Ot 536.2 PERSISTENT VOMITING 11/24/2013 MARYBETH WESTON MD Ot 593.9 RENAL URETERAL DIS NOS 11/24/2013 MARYBETH WESTON MD Ot 715.90 OSTEOARTHROS NOS-UNSPEC 11/24/2013 MARYBETH WESTON MD Ot 787.91 DIARRHEA 11/24/2013 MARYBETH WESTON MD Ot V10.3 HX OF BREAST [...] Greene Ot 782.3 07/19/2015 LUZ MARINA ARCINIEGA, GINNY Greene Ot 820.8 07/20/2015 CORREIA STEVIE WHEELERA [...] IMMUNIZATION 07/20/2015 CHIOMA CORREIA DO Ot Z79.52 CONTROL ROOM OPERATOR (CURRENT) USE OF SYSTEMIC STER 07/20/2015 STEVIE [...] RESUSCITATE 05/20/2016 AGNES RITCHIE MD Ot Z79.52 CONTROL ROOM OPERATOR (CURRENT) USE OF SYSTEMIC STER 05/20/2016 AGNES [...] RESUSCITATE 05/20/2016 AGNES RITCHIE MD Ot Z79.52 DETENTION (CURRENT) USE OF SYSTEMIC STER 05/20/2016 AGNES [...] E83.39 OTHER DISORDERS OF PHOSPHORUS METABOLISM 12/05/2016 CHIOMA CORREIA DO Ot E87.6 HYPOKALEMIA 12/05/2016 CHIOMA [...] CORREIA DO Ot Y92.[address] IN SKILLED NURSING PLACE 12/05/2016 CHIOMA CORREIA DO Ot Y99.8 OTHER EXTERNAL CAUSE STATUS 12/05/2016 CHIOMA CORREIA DO Ot Z66 DO NOT RESUSCITATE Procedures Code Description Performed By Performed On 45.16 ESOPHAGOGASTRODUODENOSCOPY [EGD] W/CLOSE 07/05/2010 38.93 VENOUS CATHETERIZATION NEC 07/06/2010 43.7 PART GASTREC W JEJ ANAST 07/06/2010 44.41 SUT GASTRIC ULCER SITE 07/06/2010 96.72 CONTINUOUS INVASIVE MECHANICAL VENTILATI 07/06/2010 11868 ROUTINE VENIPUNCTURE 12/14/2012 55101 A1C (IN-HOUSE) 15848 CMP 12/14/2012 9284179 GFR CALC (RESULT ONLY) 12/14/2012 69590 UA LONG DIP 12/14 57057 MICRO ALBUMIN-IN HOUSE 12/14/2012 44087 TSH 12/15/2012 36342 ROUTINE VENIPUNCTURE 06/29/2013 01373 A1C (IN-HOUSE) G0008 FLU ADMINISTRATION (MEDICARE ONLY) 06/29/2013 46408 TSH 06/29/2013 78.55 INTERNAL FIXATION-FEMUR 10/17/2013 57758 VENOUS DOPPLER BILATERAL 11/03/2013 38959 OXIMETRY 2013 Physical Occupational Therapy 11/03/2013 13034 ROUTINE VENIPUNCTURE 05/26/2014 58486 A1C (IN-HOUSE) 1278465 GFR CALC (RESULT ONLY) 05/26/2014 30213 BMP 05/26/2014 42177 TSH 05/26/2014 [id number] REPAIR SCALP SKIN, EXTERNAL APPROACH 07/17/2015 [id number] REPOSITION THORACIC VERTEBRA, PERCUTANEO 10/12/2015 [id number] SUPPLEMENT THORACIC VERTEBRA WITH SYNTH 10/12/2015 [id number] EXCISION OF LUMBAR VERTEBRA, PERCUTANEOU 10/12/2015 0TY31ED REPOSITION LUMBAR VERTEBRA, PERCUTANEOUS 10/12/2015 [id number] SUPPLEMENT LUMBAR VERTEBRA WITH SYNTH ALARCON 10/12/2015 13IR21V INSERTION OF INFUSION DEV INTO SUP VENA 05/17/2016 [id number] REPOSITION LEFT UPPER FEMUR WITH INTRAME 12/03/2016 [...] culture - 12/02/16 23:40 Bacterial urine culture [id number] NRG COLONY COUNT <10,000 NRG FTX;REPORTABLE SENSITIVITY [...] susceptibility test by minimum inhibitory concentration S [facility] Bacterial susceptibility panel - 12/02/16 [...] susceptibility test by minimum inhibitory concentration - [facility] Capillary blood glucose measurement by [...] ABO+Rh group OP NRG Transfusion band number [id number] NRG Blood group antibody screen NEGATIVE NRG [...] Status Pt. Type Provider Facility Loc./Unit Complaint [id number] 05/26/2014 13:43:00 05/26/2014 23: 59:59 CLS Outpatient MARYBETH WESTON MD [id number] 01/05/2014 08:08:00 01/05/2014 23: 59:59 CLS Outpatient KATELYNN ACEVEDO APRN [id number] 12/07/2013 16:56:00 12/07/2013 23: 59:59 CLS Outpatient MARYBETH WESTON MD [id number] 11/03/2013 09:39:00 11/03/2013 23: 59:59 CLS Outpatient KATELYNN ACEVEDO APRN [id number] 11/03/2013 09:39:00 11/03/2013 23: 59:59 CLS Outpatient KATELYNN ACEVEDO APRN [id number] 06/29/2013 13:13:00 06/29/2013 23: 59:59 CLS Outpatient MARYBETH WESTON MD [id number] 06/29/2013 13:13:00 06/29/2013 23: 59:59 CLS Outpatient MARYBETH WESTON MD [id number] 12/14/2012 09:13:00 12/14/2012 23: 59:59 CLS Outpatient MARYBETH WESTON MD [id number] 06/22/2012 15:47:00 06/22/2012 23: 59:59 CLS Outpatient MARYBETH WESTON MD [id number] 12/14/2012 09:13:00 Document Registration
== END 2016-12-05 15:13 | DRG 481 ==
LOC: EDUNIT# 22:04 → ER 22:05 → ICU 12-03 02:26
PROVIDERS: ADMIT Orthopaedic Surgery; ATTEND Family Medicine
PROC: 0QS706Z Reposition Left Upper Femur with Intramedullary Internal Fixation Device, Open Approach (ICD-10-PCS; principal; 2016-12-03 16:00)
DX: S72.142A Displaced intertrochanteric fracture of left femur, initial encounter for closed fracture (principal); S72.22XA Displaced subtrochanteric fracture of left femur, initial encounter for closed fracture; S00.03XA Contusion of scalp, initial encounter; E27.40 Unspecified adrenocortical insufficiency; D62 Acute posthemorrhagic anemia; I95.1 Orthostatic hypotension; I10 Essential (primary) hypertension; E78.5 Hyperlipidemia, unspecified; Z66 Do not resuscitate; K21.9 Gastro-esophageal reflux disease without esophagitis; E03.9 Hypothyroidism, unspecified; E11.9 Type 2 diabetes mellitus without complications; E87.6 Hypokalemia; E83.39 Other disorders of phosphorus metabolism; F03.90 Unspecified dementia, unspecified severity, without behavioral disturbance, psychotic disturbance, mood disturbance, and anxiety; R53.81 Other malaise; F41.9 Anxiety disorder, unspecified; M81.8 Other osteoporosis without current pathological fracture; T38.0X5A Adverse effect of glucocorticoids and synthetic analogues, initial encounter; W19.XXXA Unspecified fall, initial encounter; Y92.129 Unspecified place in nursing home as the place of occurrence of the external cause; Y99.8 Other external cause status
CPT/HCPCS: 36415; 36569; 51702; 70450; 71010; 71260; 72125; 72170; 73502; 74176; 74177; 76937; 80048; 80053; 81000; 82330; 82550; 82553; 82805; 82962; 83605; 83735; 83880; 84100; 84484; 85007; 85025; 85027; 85379; 85610; 85730; 86850; 86900; 86901; 86920; 87040; 87077; 87088; 87186; 93005; 93041; 94640; 94664; 96361; 96374